=== PATIENT | female | born 1975 | race American Indian/Alaskan Native ===

== ENCOUNTER 2017-02-21 22:11 | Observation (INO) | payer OTHER ==
[2017-02-21 22:15] VITALS: BMI 21.4
--- NOTE | 2017-02-21 22:27 | ED PDOC ---
Arrival/HPI - General Chief Complaint: Headache Time Seen by Provider: 02/21/17 22:13 Historian: Patient, Family - History of Present Illness Narrative History of Present Illness (Text): 02/21/17 22:26 Hyun Walters is a 40 year old female, whose past medical history includes hypertension, TIA with residual right-sided weakness, depression, and anxiety, who presents to the Emergency Room brought in by EMS accompanied by relative complaining of headache. Relative states patient has been experiencing a left- sided headache and right-sided facial pain for 2 1/2 hours prior to arrival. Relative reports patient had Tramadol at home with no significant relief. Patient denies any fever, chills, chest pain, shortness of breath, nausea, vomiting, diarrhea, urinary symptoms, back pain, neck pain, dizziness, or any other complaints. Time/Duration: 1-3 hours (2 1/2 hours) Symptom Onset: Gradual Symptom Course: Unchanged Activities at Onset: Rest, Light Context: Home Past Medical History - Provider Review Nursing Documentation Reviewed: Yes - Infectious Disease Hx of Infectious Diseases: None - Tetanus Immunization Tetanus Immunization: Unknown - Cardiac Hx Cardiac Disorders: Yes Hx Hypertension: Yes - Pulmonary Hx Respiratory Disorders: No - Neurological Hx Neurological Disorder: No HX Cerebrovascular Accident: Yes (1 monthago) - HEENT Hx HEENT Disorder: No - Renal Hx Renal Disorder: No - Endocrine/Metabolic Hx Endocrine Disorders: No - Hematological/Oncological Hx Blood Disorders: No - Integumentary Hx Dermatological Disorder: No - Musculoskeletal/Rheumatological Hx Arthritis: Yes - Gastrointestinal Hx Gastrointestinal Disorders: No - Genitourinary/Gynecological Hx Genitourinary Disorders: No - Psychiatric Hx Psychophysiologic Disorder: Yes Hx Anxiety: Yes Hx Bipolar Disorder: Yes Hx Depression: Yes Hx Emotional Abuse: No Hx Physical Abuse: No Hx Substance Use: No - Surgical History Hx Section: Yes Hx Cholecystectomy: Yes - Anesthesia Hx Anesthesia: Yes Hx Anesthesia Reactions: No Hx Malignant Hyperthermia: No - Suicidal Assessment Feels Threatened In Home Enviroment: No Family/Social History - Physician Review Nursing Documentation Reviewed: Yes Family/Social History: No Known Family HX Smoking Status: Never Smoked Hx Alcohol Use: Yes (socially) Hx Substance Use: No Hx Substance Use Treatment: No Allergies/Home Meds Allergies/Adverse Reactions: Allergies No Known Allergies Allergy (Verified 02/23/17 16:30) Home Medications: Home Meds Medication Instructions Recorded Confirmed FLUoxetine [Prozac] 20 mg PO HS 10/30/15 02/21/17 Atorvastatin [Lipitor] 20 mg PO DAILY 02/21/17 02/21/17 Famotidine [Pepcid] 20 mg PO DAILY 02/21/17 02/21/17 Folic Acid [Folic Acid] 1 mg PO DAILY 02/21/17 02/21/17 Tamsulosin HCl [Flomax] 0.4 mg PO HS 02/21/17 02/21/17 Tramadol HCl [Ultram] 50 mg PO Q8H PRN 02/21/17 02/21/17 Review of Systems - Physician Review All systems were reviewed & negative as marked: Yes - Review of Systems Constitutional: Normal. absent: Fevers Eyes: Normal ENT: Normal Respiratory: Normal. absent: SOB, Cough Cardiovascular: Normal. absent: Chest Pain Gastrointestinal: Normal. absent: Abdominal Pain, Diarrhea, Nausea, Vomiting Genitourinary Female: Normal. absent: Dysuria, Frequency, Hematuria, Urine Output Changes Musculoskeletal: Normal. absent: Back Pain, Neck Pain Skin: Normal. absent: Rash Neurological: Headache. absent: Dizziness Endocrine: Normal Hemo/Lymphatic: Normal Psychiatric: Normal Physical Exam Vital Signs Reviewed: Yes Vital Signs Temp Pulse Resp BP Pulse Ox 02/22/17 03:35 98.1 F 75 20 126/72 98 02/22/17 02:11 98 F 75 20 126/83 98 02/21/17 22:23 97.6 F 104 H 19 145/84 95 Temperature: Afebrile Blood Pressure: Normal Pulse: Regular Respiratory Rate: Normal Appearance: Positive for: Well-Appearing, Non-Toxic, Comfortable Pain Distress: None Mental Status: Positive for: Alert and Oriented X 3 Finger Stick Blood Glucose: 141 - Systems Exam Head: Present: Atraumatic, Normocephalic Pupils: Present: PERRL Extroacular Muscles: Present: EOMI Conjunctiva: Present: Normal Ears: Present: Normal, NORMAL TM, Normal Canal. No: Erythema, TM Bulging, Fluid , TM Perf Mouth: Present: Moist Mucous Membranes Pharnyx: Present: Normal. No: ERYTHEMA, EXUDATE, TONSILS ENLARGED, Peritonsilar Swelling, Uvular Deviation, Muffled/Hoarse Voice, Str[place], Soft Palate/Uvular Edema Neck: Present: Normal Range of Motion Respiratory/Chest: Present: Clear to Auscultation, Good Air Exchange. No: Respiratory Distress, Accessory Muscle Use Cardiovascular: Present: Regular Rate and Rhythm, Normal S1, S2. No: Murmurs Abdomen: Present: Normal Bowel Sounds. No: Tenderness, Distention, Peritoneal Signs Back: Present: Normal Inspection Upper Extremity: Present: Normal Inspection. No: Cyanosis, Edema Lower Extremity: Present: Normal Inspection. No: Edema Neurological: Present: GCS=15, CN II-XII Intact, Speech Normal Skin: Present: Warm, Dry, Normal Color. No: Rashes Psychiatric: Present: Alert, Oriented x 3, Normal Insight, Normal Concentration Medical Decision Making ED Course and Treatment: 02/21/17 22:26 Impression: 41 year old female complaining of left-sided headache and right-sided facial pain. Differential Diagnosis include but are not limited to: Plan: -- CT Head w/o contrast -- EKG -- Labs, troponin, alcohol level -- Urinalysis -- Reglan -- Reassess and disposition Prior Visits: Notes and results from previous visits were reviewed. - Lab Interpretations Lab Results: 02/21/17 22:00 02/21/17 22:00 Lab Results 02/21/17 22:19: POC Glucose (mg/dL) 141 H 02/21/17 22:00: Alcohol, Quantitative < 10 02/21/17 22:00: PT 11.5, INR 1.06, APTT 28.4 02/21/17 22:00: Sodium 139, Potassium 3.2 L, Chloride 101, Carbon Dioxide 25, Anion Gap 16, BUN 9, Creatinine 0.7, Est GFR ( Amer) > 60, Est GFR (Non- Af Amer) > 60, Random Glucose 113 H, Calcium 9.1, Total Bilirubin 0.2, AST 50 H , ALT 63 H, Alkaline Phosphatase 131, Troponin I < 0.01, Total Protein 7.2, Albumin 4.2, Globulin 3.0, Albumin/Globulin Ratio 1.4 02/21/17 22:00: WBC 6.3 D, RBC 4.13, Hgb 9.2 L, Hct 30.7 L, MCV 74.3 L, MCH 22.3 L, MCHC 30.0 L, RDW 23.1 H, Plt Count 644 H, MPV 8.4, Gran % 54.5, Lymph % (Auto) 33.0, [place] % (Auto) 8.4 H, Eos % (Auto) 3.8, Baso % (Auto) 0.3, Gran # 3.42, Lymph # 2.1, [place] # 0.5, Eos # 0.2, Baso # 0.02 02/21/17 11:30: Urine Color Light yellow, Urine Appearance Clear, Urine pH 6.5, Ur Specific [place] 1.015, Urine Protein 30 H, Urine Glucose (UA) Negative, Urine Ketones Negative, Urine Blood Negative, Urine Nitrate Negative, Urine Bilirubin Negative, Urine Urobilinogen 1.0 H, Ur Leukocyte Esterase Negative, Urine RBC 0 - 2, Urine WBC 0 - 2, Ur Epithelial Cells 3 - 4, Amorphous Sediment Few, Urine Bacteria Mod I have reviewed the lab results: Yes - RAD Interpretation Narrative RAD Interpretations (Text): CT Head shows: Brain: 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 There is no evidence of intracranial hemorrhage. No evidence of acute territorial infarction. Ventricles: Unremarkable. No ventriculomegaly. Bones/joints: Unremarkable. No acute fracture. Soft tissues: Unremarkable. Sinuses: Unremarkable as visualized. No acute sinusitis. Mastoid air cells: Unremarkable as visualized. No mastoid effusion. IMPRESSION: 1. 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 2. No evidence for acute intracranial abnormality or displaced calvarial fracture. 3. Additional incidental and/or chronic findings as described. Radiology Orders: 02/21/17 22:26 HEAD W/O CONTRAST [CT] Stat [employer] Associate: Radiologist - EKG Interpretation Interpreted by ED Physician: Yes Type: 12 lead EKG - Medication Orders Current Medication Orders: Discontinued Medications Metoclopramide HCl (Reglan) 10 mg IVP ONCE ONE Stop: 02/21/17 22:29 Last Admin: 02/21/17 22:43 Dose: 10 mg Potassium Chloride (K-Dur 20 Meq Er Tab) 20 meq PO STAT STA Stop: 02/22/17 01:31 Last Admin: 02/22/17 01:52 Dose: 20 meq ED OBSERVATION Discharge: Yes Date of observation admission: 02/21/17 Time of observation admission: 22:30 - Observation admission statement Patient is being placed in observation because:: Migraine - Goals of Observation Goals of observation are:: observe for recurrence of headache, awaiting transport - Progress Note Progress Note: 02/22/17 22:30 Reviewed EKG, NSR at [address]pm[address] Non-specific ST/T wave changes. 02/22/17 00:30 Reviewed radiology, CT Head shows: 1. 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 2. No evidence for acute intracranial abnormality or displaced calvarial fracture. 3. Additional incidental and/or chronic findings as described. 02/22/17 01:30 Pt resting comfortably. Reviewed labs, potassium: 3.2. Potassium chloride ordered. - Scribe Statement The provider has reviewed the documentation as recorded by the Scribe Hali Gonsalves All medical record entries made by the Scribe were at my direction and personally dictated by me. I have reviewed the chart and agree that the record accurately reflects my personal performance of the history, physical exam, medical decision making, and the department course for this patient. I have also personally directed, reviewed, and agree with the discharge instructions and disposition. Disposition/Present on Arrival - Present on Arrival Any Indicators Present on Arrival: No History of DVT/PE: No History of Uncontrolled Diabetes: No Urinary Catheter: No History of Decub. Ulcer: No History Surgical Site Infection Following: None - Disposition Have Diagnosis and Disposition been Completed?: Yes Diagnosis: Vascular headache Disposition: HOME/ ROUTINE Disposition Time: 03:35 Condition: GOOD
[2017-02-21 22:50] LABS: ADD MANUAL DIFF? NO
[2017-02-21 23:06] LABS: BASO # 0.02 K/mm3 (0.0-2.0); BASO % 0.3 % (0.0-3.0); EOS # 0.2 (0.0-0.7); EOS % 3.8 % (1.5-5.0); GRAN # 3.42 (1.4-6.5); GRAN % 54.5 % (50.0-68.0); HEMATOCRIT 30.7 % (36.0-48.0); LYMPH # 2.1 (1.2-3.4); MEAN CELL VOLUME 74.3 fL (80.0-105.0); MEAN CORPUSCULAR HEMOGLOBIN 22.3 pg (25.0-35.0); MEAN PLATELET VOLUME 8.4 fl (7.0-11.0); MONO # 0.5 (0.1-0.6); MONO % 8.4 % (1.0-6.0); PLATELET COUNT 644 10^3/uL (120.0-450.0); RED CELL DISTRIBUTION WIDTH 23.1 % (11.5-14.5); WHITE BLOOD COUNT 6.3 10^3/ul (4.5-11.0)
[2017-02-21 23:07] LABS: ALB/GLOB RATIO 1.4 (1.1-1.8); ALKALINE PHOSPHATASE 131 U/L (38-133); ALT/SGPT 63 U/L (7-56); AST/SGOT 50 U/L (15-39); BILIRUBIN,TOTAL 0.2 mg/dL (0.2-1.3); BLOOD UREA NITROGEN 9 mg/dL (7-21); CALCIUM 9.1 mg/dL (8.4-10.5); CARBON DIOXIDE 25 mmol/L (21-33); CHLORIDE 101 mmol/L (95-110); GFR AFRICAN-AMERICAN > 60; GLUCOSE,RANDOM 113 mg/dL (70-110); POTASSIUM 3.2 mmol/L (3.6-5.0); SODIUM 139 mmol/L (132-148); TOTAL PROTEIN 7.2 g/dL (5.8-8.3)
[2017-02-21 23:27] LABS: TROPONIN I < 0.01 ng/mL
[2017-02-21 23:32] LABS: INR 1.06 (0.93-1.08); PARTIAL THROMBOPLASTIN TIME 28.4 Seconds (23.7-30.8)
[2017-02-22 00:25] LABS: PH,URINE 6.5 (4.7-8.0); URINE BILIRUBIN NEGATIVE (NEGATIVE); URINE BLOOD NEGATIVE (NEGATIVE); URINE GLUCOSE (UA) NEGATIVE (NEGATIVE); URINE KETONE NEGATIVE (NEGATIVE); URINE LEUKOCYTE ESTERASE NEGATIVE Leu/uL (NEGATIVE); URINE PROTEIN 30 mg/dL (<30 mg/dL)
--- NOTE | 2017-02-22 00:25 | CT ---
EXAM: CT Head Without Intravenous Contrast CLINICAL HISTORY: 41 years old, female; Pain; Headache; Headache not specified; Additional info: RON. HX stroke per patient. TECHNIQUE: Axial computed tomography images of the head/brain without intravenous contrast. This CT exam was performed using one or more of the following dose reduction techniques: automated exposure control, adjustment of the mA and/or kV according to patient size, and/or use of iterative reconstruction technique. 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 There is no evidence of intracranial hemorrhage. No evidence of acute territorial infarction. Ventricles: Unremarkable. No ventriculomegaly. Bones/joints: Unremarkable. No acute fracture. Soft tissues: Unremarkable. Sinuses: Unremarkable as visualized. No acute sinusitis. Mastoid air cells: Unremarkable as visualized. No mastoid effusion. IMPRESSION: 1. 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 2. No evidence for acute intracranial abnormality or displaced calvarial fracture. 3. Additional incidental and/or chronic findings as described.
[2017-02-22 00:26] LABS: URINE APPEARANCE CLEAR (CLEAR); URINE COLOR LIGHT YELLOW (YELLOW)
[2017-02-22 01:08] LABS: URINE RBC 0 - 2 /hpf (0-2)
[2017-02-22 01:09] LABS: URINE AMORPHOUS SEDIMENT FEW; URINE BACTERIA MOD (NEG); URINE WBC 0 - 2 /hpf (0-6)
[2017-02-22] MEDS ORDERED: Potassium Chloride 20 mEq ER Tab PO STA (01:30)
[2017-02-22 02:16] VITALS: PULSE 75; RESP 20; O2SAT 98
[2017-02-22 03:36] VITALS: BP 126/72; TEMP 98.1
--- NOTE | 2017-02-22 10:10 | CARD ---
APPROVED REPORT EKG Measurement Heart [id number] MD [id number] <Conclusion> Normal sinus rhythm Voltage criteria for left ventricular hypertrophy NSSTW changes Prolonged QTc No change
== END 2017-02-22 03:36 | disposition home or self-care (01) ==
LOC: ED 22:11 → EROBSV 23:30
PROVIDERS: ADMIT Emergency Medicine; ATTEND Emergency Medicine
DX: G44.1 Vascular headache, not elsewhere classified (principal); I10 Essential (primary) hypertension
CPT/HCPCS: 70450; 80053; 80320; 81001; 82948; 84484; 85025; 85610; 85730; 93005; 96374; 99285; J2765

== ENCOUNTER 2017-02-23 16:09 | Emergency (ER) | payer OTHER ==
[2017-02-23 16:11] VITALS: BMI 21.4
[2017-02-23 16:30] VITALS: BP 149/94; PULSE 103; RESP 20; TEMP 97.7; O2SAT 100
--- NOTE | 2017-02-23 17:00 | ED PDOC ---
Arrival/HPI - General Chief Complaint: Dental Pain Time Seen by Provider: 02/23/17 16:47 Historian: Patient, Family - History of Present Illness Narrative History of Present Illness (Text): 02/23/17 16:57 Hyun Walters is a 40 year old female, whose past medical history includes hypertension, TIA with residual right-sided weakness, depression, and anxiety, who presents to the Emergency Room with family member c/o right lower tooth ache x 2 days. Patient had been recently in this ED for RON. Patient denies fever, dysphagia, sore throat, sob, cp, facial swelling, rash, or abnormal gait. Time/Duration: Prior to Arrival Quality: Aching Context: Home Past Medical History - Provider Review Nursing Documentation Reviewed: Yes - Infectious Disease Hx of Infectious Diseases: None - Tetanus Immunization Tetanus Immunization: Unknown - Cardiac Hx Cardiac Disorders: Yes Hx Hypertension: Yes - Pulmonary Hx Respiratory Disorders: No - Neurological Hx Neurological Disorder: No HX Cerebrovascular Accident: Yes (1 monthago) - HEENT Hx HEENT Disorder: No - Renal Hx Renal Disorder: No - Endocrine/Metabolic Hx Endocrine Disorders: No - Hematological/Oncological Hx Blood Disorders: No - Integumentary Hx Dermatological Disorder: No - Musculoskeletal/Rheumatological Hx Arthritis: Yes - Gastrointestinal Hx Gastrointestinal Disorders: No - Genitourinary/Gynecological Hx Genitourinary Disorders: No - Psychiatric Hx Psychophysiologic Disorder: Yes Hx Anxiety: Yes Hx Bipolar Disorder: Yes Hx Depression: Yes Hx Emotional Abuse: No Hx Physical Abuse: No Hx Substance Use: No - Surgical History Hx Section: Yes Hx Cholecystectomy: Yes - Anesthesia Hx Anesthesia: Yes Hx Anesthesia Reactions: No Hx Malignant Hyperthermia: No - Suicidal Assessment Feels Threatened In Home Enviroment: No Family/Social History - Physician Review Nursing Documentation Reviewed: Yes Family/Social History: No Known Family HX Smoking Status: Never Smoked Hx Alcohol Use: Yes (socially) Hx Substance Use: No Hx Substance Use Treatment: No Allergies/Home Meds Allergies/Adverse Reactions: Allergies No Known Allergies Allergy (Verified 02/23/17 16:30) Home Medications: Home Meds Medication Instructions Recorded Confirmed FLUoxetine [Prozac] 20 mg PO HS 10/30/15 02/21/17 Atorvastatin [Lipitor] 20 mg PO DAILY 02/21/17 02/21/17 Famotidine [Pepcid] 20 mg PO DAILY 02/21/17 02/21/17 Folic Acid [Folic Acid] 1 mg PO DAILY 02/21/17 02/21/17 Tamsulosin HCl [Flomax] 0.4 mg PO HS 02/21/17 02/21/17 Tramadol HCl [Ultram] 50 mg PO Q8H PRN 02/21/17 02/21/17 Review of Systems - Review of Systems Constitutional: Normal. absent: Fatigue, Weight Change, Fevers, Night Sweats Eyes: Normal ENT: Other (dental pain). absent: Sore Throat, Rhinorrhea Respiratory: Normal Cardiovascular: Normal Gastrointestinal: Normal Genitourinary Female: Normal Musculoskeletal: Normal Skin: Normal Neurological: Normal Endocrine: Normal Hemo/Lymphatic: Normal Psychiatric: Normal Physical Exam Vital Signs Temp Pulse Resp BP Pulse Ox 02/23/17 16:25 97.7 F 103 H 20 149/94 H 100 Temperature: Afebrile Blood Pressure: Normal Pulse: Regular Respiratory Rate: Normal Appearance: Positive for: Well-Appearing, Non-Toxic, Comfortable Pain Distress: None Mental Status: Positive for: Alert and Oriented X 3 - Systems Exam Head: Present: Atraumatic, Normocephalic Pupils: Present: PERRL Extroacular Muscles: Present: EOMI Conjunctiva: Present: Normal Ears: Present: Normal, NORMAL TM, Normal Canal. No: Erythema, TM Bulging, Fluid Mouth: Present: Moist Mucous Membranes, Normal Lips, Normal Tounge, Other ((+) gum surrounding tooth # 30 is mild redness. No dental abscess. No facial swelling. No facial rash). No: Drooling, Trismus Pharnyx: Present: Normal. No: ERYTHEMA, EXUDATE, TONSILS ENLARGED Neck: Present: Normal Range of Motion Respiratory/Chest: Present: Clear to Auscultation, Good Air Exchange, Respiratory Distress, Accessory Muscle Use. No: Wheezes, Rales, Retracting Cardiovascular: Present: Regular Rate and Rhythm, Normal S1, S2. No: Murmurs Upper Extremity: Present: Normal Inspection, Normal ROM, NORMAL PULSES, Neurovascularly Intact, Capillary Refill < 2s Lower Extremity: Present: Normal Inspection, NORMAL PULSES, Normal ROM, Neurovascularly Intact, Capillary Refill < 2 s. No: Edema, CALF TENDERNESS Neurological: Present: GCS=15, CN II-XII Intact, Speech Normal, Motor Func Grossly Intact, Normal Sensory Function, Normal Cerebellar Funct, Gait Normal Skin: Present: Warm, Dry, Normal Color. No: Rashes Psychiatric: Present: Alert, Oriented x 3 Medical Decision Making ED Course and Treatment: 02/23/17 17:01 Re-evaluation. Patient feels better. Discussed results and plan with patient who expresses understanding. All questions answered and there is agreement with the plan to discharge home with instructions. Patient stable for discharge. Return if symptoms persist or worsen Patient stated she did not take her home Xanax, and she feels mild anxious at this time. She agrees to take one dose today. Re-evaluation Time: 17:02 Reassessment Condition: Re-examined, Improved - Medication Orders Current Medication Orders: Discontinued Medications Amoxicillin (Amoxil 500 Mg Cap) 500 mg PO STAT STA PRN Reason: Protocol Stop: 02/23/17 16:57 Last Admin: 02/23/17 17:13 Dose: 500 mg Ketorolac Tromethamine (Toradol) 15 mg IM STAT STA Stop: 02/23/17 16:56 Last Admin: 02/23/17 17:14 Dose: 15 mg Disposition/Present on Arrival - Present on Arrival Any Indicators Present on Arrival: No History of DVT/PE: No History of Uncontrolled Diabetes: No Urinary Catheter: No History of Decub. Ulcer: No History Surgical Site Infection Following: None - Disposition Have Diagnosis and Disposition been Completed?: Yes Diagnosis: Pain due to dental caries Disposition: HOME/ ROUTINE Disposition Time: 17:02 Patient Plan: Discharge Patient Problems: Current Active Problems Problem Status Onset Vascular headache Acute Pain due to dental caries Acute Condition: GOOD Discharge Instructions (ExitCare): Dental Caries (ED), Toothache (ED) Additional Instructions: Call private doctor for follow up visit in 1-2 days. Take medication as instructed. Return to emergency if symptoms worsen. Prescriptions: Amoxicillin [Amoxil 500 mg Cap] 500 mg PO TID #30 cap Chlorhexidine 0.12% [Peridex] 15 ml PO BID #1 bottle Naproxen 500 mg PO BID PRN #20 tab PRN Reason: Pain, Severe (8-10) Referrals: Dallin Narvaez JD, MD [Primary Care Provider] - Follow up with primary
== END 2017-02-23 17:40 | disposition home or self-care (01) ==
LOC: ED 16:09
DX: K02.9 Dental caries, unspecified (principal); K08.89 Other specified disorders of teeth and supporting structures
CPT/HCPCS: 96372; 99282; J1885

== ENCOUNTER 2017-04-10 07:08 | Inpatient (IN) | payer OTHER ==
--- NOTE | 2017-04-10 07:19 | ED PDOC ---
Arrival/HPI - General Time Seen by Provider: 04/10/17 07:14 Historian: EMS - History of Present Illness Narrative History of Present Illness (Text): 04/10/17 07:07 A 42 year old female, whose past medical history includes hypertension, CVA with residual right-sided weakness, depression, and anxiety, was brought in to the emergency department via EMS due to generalized weakness and altered mental status. Review of symptoms unavailable due to patient's altered mental status. PMD: Dallin Narvaez Time/Duration: Prior to Arrival Symptom Course: Unchanged Context: Home Past Medical History - Provider Review Nursing Documentation Reviewed: Yes - Infectious Disease Hx of Infectious Diseases: None - Tetanus Immunization Tetanus Immunization: Unknown - Cardiac Hx Cardiac Disorders: Yes Hx Hypertension: Yes - Pulmonary Hx Respiratory Disorders: No - Neurological Hx Neurological Disorder: No HX Cerebrovascular Accident: Yes (1 monthago) - HEENT Hx HEENT Disorder: No - Renal Hx Renal Disorder: No - Endocrine/Metabolic Hx Endocrine Disorders: No - Hematological/Oncological Hx Blood Disorders: No - Integumentary Hx Dermatological Disorder: No - Musculoskeletal/Rheumatological Hx Arthritis: Yes - Gastrointestinal Hx Gastrointestinal Disorders: No - Genitourinary/Gynecological Hx Genitourinary Disorders: No - Psychiatric Hx Psychophysiologic Disorder: Yes Hx Anxiety: Yes Hx Bipolar Disorder: Yes Hx Depression: Yes Hx Emotional Abuse: No Hx Physical Abuse: No Hx Substance Use: No - Surgical History Hx Section: Yes Hx Cholecystectomy: Yes - Anesthesia Hx Anesthesia: Yes Hx Anesthesia Reactions: No Hx Malignant Hyperthermia: No - Suicidal Assessment Feels Threatened In Home Enviroment: No Family/Social History - Physician Review Nursing Documentation Reviewed: Yes Family/Social History: No Known Family HX Smoking Status: Never Smoked Hx Alcohol Use: Yes (socially) Hx Substance Use: No Hx Substance Use Treatment: No Allergies/Home Meds Allergies/Adverse Reactions: Allergies No Known Allergies Allergy (Verified 04/10/17 07:23) Home Medications: Home Meds Medication Instructions Recorded Confirmed Atorvastatin [Lipitor] 20 mg PO DAILY 02/21/17 04/10/17 Famotidine [Pepcid] 20 mg PO DAILY 02/21/17 04/10/17 Folic Acid [Folic Acid] 1 mg PO DAILY 02/21/17 04/10/17 Tamsulosin HCl [Flomax] 0.4 mg PO HS 02/21/17 04/10/17 Tramadol HCl [Ultram] 50 mg PO Q8H PRN 02/21/17 04/10/17 Alprazolam [Alprazolam] 0.25 mg PO BID 04/10/17 04/10/17 Calcium Carbonate/Vitamin D3 500 cap PO BID 04/10/17 04/10/17 [Oysco 500-Vit D3 200 Tablet] Mirtazapine [Remeron] 7.5 mg PO DAILY 04/10/17 04/10/17 Quetiapine Fumarate [Seroquel] 200 mg PO HS 04/10/17 04/10/17 Review of Systems - Review of Systems Systems not reviewed;Unavailable: Altered Mental Status Physical Exam - Physical Exam Narrative Physical Exam (Text): - Physical exam Patient appears age appropriate. - Systems Exam Head: Present: Atraumatic, Normocephalic Pupils: Present: PERRL Extraocular Muscles: Present: EOMI Conjunctiva: Present: Normal Mouth: Present: Moist Mucous Membranes Neck: Present: Normal Range of Motion. No: MIDLINE TENDERNESS, Paraspinal Tenderness Respiratory/Chest: Present: Clear to Auscultation, Good Air Exchange. No: Respiratory Distress, Accessory Muscle Use, Tachypnic Cardiovascular: Present: Regular Rate and Rhythm, Normal S1, S2, Peripheral Pulses Present. No: Murmurs Abdomen: Present: Normal Bowel Sounds, No: Tenderness, Peritoneal Signs, Rebound, Guarding, Distention Back: Present: Normal Inspection. No: Midline Tenderness, Paraspinal Tenderness Upper Extremity: Present: Normal Inspection. No: Cyanosis, Edema Lower Extremity: Present: Normal Inspection. No: Edema Neurological: Present: Right sided weakness otherwise no focal neurological deficits. Skin: Present: Warm, Dry, Normal Color. No: Rashes Lymphatic: Present: OX3, NI, NC Psychiatric: Present: Alert to verbal and tactile stimuli. Vital Signs Reviewed: Yes Vital Signs Temp Pulse Resp BP Pulse Ox 04/10/17 08:43 97.5 F L 77 20 145/88 98 04/10/17 07:25 97.5 F L 80 16 153/83 H 98 Temperature: Afebrile Blood Pressure: Hypertensive Pulse: Regular Respiratory Rate: Normal Medical Decision Making ED Course and Treatment: 04/10/17 07:19 Impression: A 42 year old female brought in via EMS for altered mental status and right sided weakness. On exam, patient is alert to verbal and tactile stimuli, right sided weakness otherwise no other focal neurological deficits. Plan: -- Head CT w/o Contrast -- Chest X-ray -- EKG -- Labs -- Blood Culture -- Urinalysis -- Reassess and disposition Prior Visits: Notes and results from previous visits were reviewed. Patient last seen in ED on 02/23/17 for lower right sided toothache. Progress Notes: EKG shows NSR at [address]-segment elevations, normal intervals. Interpreted by me. Report Date : 04/10/2017 08:15:29 PROCEDURE: CT HEAD WITHOUT CONTRAST. Dictator : Courtney Baker MD IMPRESSION: Encephalomalacia is re-identified involving the left frontal lobe and left basal ganglia. Please note that MRI with diffusion imaging is more sensitive in the detection of acute ischemic event. 04/10/17 09:04 Chest X-ray read and interpreted by me, which shows no cardiomegaly, no pneumothorax, no effusions. 04/10/17 09:06: On re-evaluation, patient is more awake, asking for pain meds for her R. sided pain. Pt's sister bedside, states pt had a stroke in December and her R. sided weakness is old. 04/10/17 09:33 Dr. Brice elizabeth, awaiting callback 04/10/17 09:[address] Narvaez, accepted admission to his service with Dr. Larson on consult pt in no distress, appears more awake than when she came in the morning sister adds that pt took a pill given by mental health which she has not taken in a few months, cannot recall the name pt and family aware of and agree with plan pt is protecting her airway - Lab Interpretations Lab Results: 04/10/17 07:25 04/10/17 07:25 Lab Results 04/10/17 08:35: Urine Color Yellow, Urine Appearance Clear, Urine pH 6.0, Ur Specific Mack 1.025, Urine Protein Trace H, Urine Glucose (UA) Negative, Urine Ketones Negative, Urine Blood Negative, Urine Nitrate Negative, Urine Bilirubin Negative, Urine Urobilinogen 1.0 H, Ur Leukocyte Esterase Negative, Urine RBC Negative, Urine WBC 0 - 2, Ur Epithelial Cells 1 - 3, Urine Bacteria Few 04/10/17 08:27: POC Glucose (mg/dL) 72 04/10/17 07:25: Sodium 143, Potassium 3.7, Chloride 107, Carbon Dioxide 24, Anion Gap 16, BUN 16, Creatinine 0.8, Est GFR ( Amer) > 60, Est GFR (Non- Af Amer) > 60, Random Glucose 120 H, Calcium 9.1, Total Bilirubin 0.4, AST 35, ALT 32, Alkaline Phosphatase 99, Lactate Dehydrogenase 358, Total Creatine Kinase 95, Troponin I < 0.01, Total Protein 7.5, Albumin 4.2, Globulin 3.3, Albumin/Globulin Ratio 1.3 04/10/17 07:25: PT 11.2, INR 1.04, APTT 26.8 04/10/17 07:25: WBC 9.3 D, RBC 4.36, Hgb 9.5 L, Hct 31.6 L, MCV 72.5 L, MCH 21.8 L, MCHC 30.1 L, RDW 20.4 H, Plt Count 497 H, MPV 8.5, Gran % 58.5, Lymph % (Auto) 33.7, [place] % (Auto) 5.4, Eos % (Auto) 2.3, Baso % (Auto) 0.1, Gran # 5.45 , Lymph # 3.1, [place] # 0.5, Eos # 0.2, Baso # 0.01 I have reviewed the lab results: Yes - RAD Interpretation Radiology Orders: 04/10/17 07:43 HEAD W/O CONTRAST [CT] Stat 04/10/17 07:44 CHEST PORTABLE [RAD] Stat - Medication Orders Current Medication Orders: Discontinued Medications Aspirin (Aspirin Supp) 300 mg RC STAT STA Stop: 04/10/17 08:25 Last Admin: 04/10/17 08:43 Dose: 300 mg NIHSS Scale ([place]) Time Performed: 09:47 - How Severe is the Stoke Baseline Level of Consciousness: 0=Alert LOC to Questions: 0=Both comments correct LOC to commands: 0=Obeys both correctly Best Gaze: 0=Normal Visual: 0=No visual loss Facial: 0=Normal Motor Arm - Left: 0=No drift Motor Arm - Right: 0=No drift (decreased ROM at baseline) Motor Leg - Left: 0=No drift Motor Leg - Right: 0=No drift (decreased ROM at baseline) Limb Ataxia: 0=Absent Sensory: 0=Normal Best Language: 0=No aphasia Dysarthia: 0=Normal articulation Extinction & Inattention (Neglect): 0=Normal, no object Score: 0 Risk Level: No Stroke Risk rTPA Inclusion/Exclusion - Refusal of Treatment Patient Refused Treatment: No - Inclusion Criteria for Altepase Patient is 18 years or Older: Yes The Clinical Diagnosis of Ischemic Stroke That is Causing a Potentially Disabling Neurological Deficit: No Time of Onset is Well Established to be Less Than 270 Minute Before Treatment Would Begin: Yes Risk/Benefit Discussed With Patient/Family Member Present: No - Scribe Statement The provider has reviewed the documentation as recorded by the Scribe Ligia Leyva training under Taylor Doherty Provider Scribe Attestation: All medical record entries made by the Scribe were at my direction and personally dictated by me. I have reviewed the chart and agree that the record accurately reflects my personal performance of the history, physical exam, medical decision making, and the department course for this patient. I have also personally directed, reviewed, and agree with the discharge instructions and disposition. Disposition/Present on Arrival - Present on Arrival Any Indicators Present on Arrival: No History of DVT/PE: No History of Uncontrolled Diabetes: No Urinary Catheter: No History Surgical Site Infection Following: None - Disposition Have Diagnosis and Disposition been Completed?: Yes Diagnosis: Altered mental status Disposition: HOSPITALIZED Disposition Time: 09:46 Patient Plan: Observation Condition: STABLE Referrals: Dallin Narvaez JD, MD [Primary Care Provider] - Follow up with primary
[2017-04-10 07:21] VITALS: BMI 20.5
[2017-04-10 08:10] LABS: BASO # 0.01 K/mm3 (0.0-2.0); BASO % 0.1 % (0.0-3.0); EOS # 0.2 (0.0-0.7); EOS % 2.3 % (1.5-5.0); GRAN # 5.45 (1.4-6.5); GRAN % 58.5 % (50.0-68.0); HEMOGLOBIN 9.5 gm/dL (12.0-16.0); LYMPH # 3.1 (1.2-3.4); LYMPH % 33.7 % (22.0-35.0); MEAN CELL VOLUME 72.5 fL (80.0-105.0); MEAN CORPUSCULAR HEMOGLOBIN 21.8 pg (25.0-35.0); MEAN CORPUSCULAR HGB CONC 30.1 g/dl (31.0-37.0); MEAN PLATELET VOLUME 8.5 fl (7.0-11.0); MONO # 0.5 (0.1-0.6); MONO % 5.4 % (1.0-6.0); PLATELET COUNT 497 10^3/uL (120.0-450.0); RBC 4.36 10^6/uL (3.5-6.1); RED CELL DISTRIBUTION WIDTH 20.4 % (11.5-14.5); WHITE BLOOD COUNT 9.3 10^3/ul (4.5-11.0)
--- NOTE | 2017-04-10 08:16 | CT ---
PROCEDURE: CT HEAD WITHOUT CONTRAST. HISTORY: AMS COMPARISON: Noncontrast head CT performed 02/22/17 TECHNIQUE: Axial computed tomography images were obtained through the head/brain without intravenous contrast. Radiation dose: Total exam DLP = 689.99 MGy-cm. This CT exam was performed using one or more of the following dose reduction techniques: Automated exposure control, adjustment of the mA and/or kV according to patient size, and/or use of iterative reconstruction technique. FINDINGS: HEMORRHAGE: No intracranial hemorrhage. BRAIN: No mass effect or edema. Encephalomalacia is re-identified involving the left frontal lobe and left basal ganglia. Please note that MRI with diffusion imaging is more sensitive in the detection of acute ischemic event. VENTRICLES: No hydrocephalus. CALVARIUM: Unremarkable. PARANASAL SINUSES: Unremarkable as visualized. No significant inflammatory changes. MASTOID AIR CELLS: Unremarkable as visualized. No inflammatory changes. OTHER FINDINGS: None. IMPRESSION: Encephalomalacia is re-identified involving the left frontal lobe and left basal ganglia. Please note that MRI with diffusion imaging is more sensitive in the detection of acute ischemic event.
[2017-04-10 08:20] LABS: INR 1.04 (0.93-1.08); PARTIAL THROMBOPLASTIN TIME 26.8 Seconds (23.7-30.8); PROTHROMBIN TIME 11.2 Seconds (9.9-11.8)
[2017-04-10 08:33] LABS: ALB/GLOB RATIO 1.3 (1.1-1.8); ALBUMIN 4.2 g/dL (3.0-4.8); ALT/SGPT 32 U/L (7-56); AST/SGOT 35 U/L (15-39); BLOOD UREA NITROGEN 16 mg/dL (7-21); CALCIUM 9.1 mg/dL (8.4-10.5); GFR AFRICAN-AMERICAN > 60; GFR NON-AFRICAN AMERICAN > 60
[2017-04-10 08:49] LABS: TROPONIN I < 0.01 ng/mL
[2017-04-10 08:59] LABS: URINE BILIRUBIN NEGATIVE (NEGATIVE); URINE BLOOD NEGATIVE (NEGATIVE); URINE GLUCOSE (UA) NEGATIVE (NEGATIVE); URINE LEUKOCYTE ESTERASE NEGATIVE Leu/uL (NEGATIVE); URINE NITRATE NEGATIVE (NEGATIVE); URINE PROTEIN TRACE mg/dL (<30 mg/dL)
[2017-04-10 09:00] LABS: URINE APPEARANCE CLEAR (CLEAR); URINE COLOR YELLOW (YELLOW)
[2017-04-10 09:23] LABS: URINE BACTERIA FEW (NEG); URINE RBC NEGATIVE /hpf (0-2); URINE WBC 0 - 2 /hpf (0-6)
--- NOTE | 2017-04-10 10:04 | CP.PCM.CON ---
<Bianka Gordon - Last Filed: 04/10/17 11:22> History of Present Illness - History of Present Illness History of Present Illness: PGY-2 Neurology consult note for Dr Larson. Reason for consult: AMS Patient is a 42 y/o with pmh of htn, CVA ( December 2016) with residual right sided hemiparesis, depression and anxiety brought in by sister 2nd to [facility]. As per patient's sister states patient took 0.25 mg of Xanax last night around 9: 30 pm, likely also took tramadol (but sister is not sure) before going to bed. This AM patient wouldn't woke up, patient's sister was finally able to get patient to the shower, however patient was too sleepy and lethargic to take the shower. Patient's sister decided to call 911. Recently visited a dentist and was prescribed antibiotics. Patient also recently visited a behavioral psych, was prescribed seroquel, Xanax and one other medications she doesn't recall. Patient has not been taking the seroquel, but took Xanax last night. In the ED CT head revealed encephalomalacia. Patient c/o headache and was giving full dose aspirin. Patient's fingerstick was 72 in the ED. Unable to obtain detailed ROS due to mental status. Review of Systems - Review of Systems Systems not reviewed;Unavailable: Altered Mental Status Past Patient History - Infectious Disease Hx of Infectious Diseases: None - Tetanus Immunizations Tetanus Immunization: Unknown - Past Social History Smoking Status: Former Smoker Home Situation {Lives}: With Family - CARDIAC Hx Cardiac Disorders: Yes Hx Hypertension: Yes - PULMONARY Hx Respiratory Disorders: No - NEUROLOGICAL Hx Neurological Disorder: No HX Cerebrovascular Accident: Yes (1 monthago) - HEENT Hx HEENT Problems: No - RENAL Hx Chronic Kidney Disease: No - ENDOCRINE/METABOLIC Hx Endocrine Disorders: No - HEMATOLOGICAL/ONCOLOGICAL Hx Blood Disorders: No - INTEGUMENTARY Hx Dermatological Problems: No - MUSCULOSKELETAL/RHEUMATOLOGICAL Hx Arthritis: Yes - GASTROINTESTINAL Hx Gastrointestinal Disorders: No - GENITOURINARY/GYNECOLOGICAL Hx Genitourinary Disorders: No - PSYCHIATRIC Hx Psychophysiologic Disorder: Yes Hx Anxiety: Yes Hx Bipolar Disorder: Yes Hx Depression: Yes Hx Emotional Abuse: No Hx Physical Abuse: No Hx Substance Use: No - SURGICAL HISTORY Hx Section: Yes Hx Cholecystectomy: Yes - ANESTHESIA Hx Anesthesia: Yes Hx Anesthesia Reactions: No Hx Malignant Hyperthermia: No Meds Allergies/Adverse Reactions: Allergies Allergy/AdvReac Type Severity Reaction Status Date / Time No Known Allergies Allergy Verified 04/10/17 07:23 Physical Exam - Constitutional Appears: No Acute Distress, Older Than Stated Age, Confused, Cachectic, Chronically Ill - Head Exam Head Exam: ATRAUMATIC, NORMAL INSPECTION, NORMOCEPHALIC - Eye Exam Pupil Exam: Fixed, Miosis - ENT Exam ENT Exam: Mucous Membranes Dry - Neck Exam Neck exam: Positive for: Normal Inspection. Negative for: Meningismus - Respiratory Exam Respiratory Exam: Clear to Auscultation Bilateral, NORMAL BREATHING PATTERN. absent: Rales, Rhonchi, Wheezes, Respiratory Distress, Stridor - Cardiovascular Exam Cardiovascular Exam: REGULAR RHYTHM, +S1, +S2 - GI/Abdominal Exam GI & Abdominal Exam: Normal Bowel Sounds, Soft. absent: Distended, Tenderness - Extremities Exam Extremities exam: Positive for: normal inspection. Negative for: pedal edema - Neurological Exam Additional comments: Patient is not oriented to time, place and person, appears very lethargic, moans with stimulus. Not opening her eyes spontaneously, No facial asymmetry noted Pupils fixed and pinpoint reactive to light, but sluggish. Following few commands Right upper extremities contracted, moans with passive ROM, left Upper extremities 4/5 motor strengths Able to move b/l lower extremities grossly, + rigidity in the right lower extremities Left lower extremities 4/5 in motor strength. Positive babinski on the right. Reflexes are brisk throughout. Unable to examine, gait and cerebella functions. - Psychiatric Exam Additional comments: Unable to assess. - Skin Skin Exam: Normal Color Results - Vital Signs Recent Vital Signs: Last Vital Signs Temp 97.5 F L 04/10/17 08:43 Pulse 78 04/10/17 09:54 Resp 20 04/10/17 09:54 BP 124/75 04/10/17 09:54 Pulse Ox 98 04/10/17 09:54 - Labs Result Diagrams: 04/10/17 07:25 04/10/17 07:25 Assessment & Plan - Assessment and Plan (Free Text) Assessment: Patient is a 42 y/o with pmh of htn, CVA ( December 2016) with residual right sided hemiparesis, depression and anxiety brought in by sister 2nd to [facility]. Neurology is consulted for AMS. CT head revealed Encephalomalacia is re- identified involving the left frontal lobe and left basal ganglia. Hypoglycemia noted in the ED, On exam patient is very lethargic with pinpoint pupils concerning for drug overdose versus new CVA. Plan: - Will give stat dose narcan - will obtain drug tox - MRI to evaluate for new CVA - Consider ICU eval for mental status. - s/p full dose aspirin in the ED. - Avoid hypoglycemia episodes. - Thank you for consulting Dr Larson. Patient seen, examined, and discussed with Dr Larson. - Date & Time Date: 04/10/17 Time: 11:15 <Aj Larson - Last Filed: 04/10/17 14:15> Results - Vital Signs Recent Vital Signs: Last Vital Signs Temp 97.8 F 04/10/17 11:19 Pulse 78 04/10/17 11:19 Resp 20 04/10/17 11:19 BP 124/75 04/10/17 11:19 Pulse Ox 98 04/10/17 09:54 - Labs Result Diagrams: 04/10/17 07:25 04/10/17 07:25 Labs: Laboratory Results - last 24 hr 04/10/17 10:11 Alcohol, Quantitative < 10 Attending/Attestation - Attestation I have personally seen and examined this patient.: Yes I have fully participated in the care of the patient.: Yes I have reviewed all pertinent clinical information: Yes
[2017-04-10] MEDS ORDERED: Naloxone 0.4 mg/ml Inj (Adult) IVP ONE (10:56)
--- NOTE | 2017-04-10 11:16 | CP.PCM.HP ---
History of Present Illness - History of Present Illness History of Present Illness: 42 yo female h/o HTN with CVA, presents with 1 day increasing lethargy. Pt unable to give any hx, sister reports has been having dental problems, took xanax previous evening, no fever/chills, no n/v, no SOB Present on Admission - Present on Admission Any Indicators Present on Admission: No Past Patient History - Infectious Disease Hx of Infectious Diseases: None - Tetanus Immunizations Tetanus Immunization: Unknown - Past Social History Smoking Status: Never Smoked - CARDIAC Hx Cardiac Disorders: Yes Hx Hypertension: Yes - PULMONARY Hx Respiratory Disorders: No - NEUROLOGICAL Hx Neurological Disorder: No HX Cerebrovascular Accident: Yes (1 monthago) - HEENT Hx HEENT Problems: No - RENAL Hx Chronic Kidney Disease: No - ENDOCRINE/METABOLIC Hx Endocrine Disorders: No - HEMATOLOGICAL/ONCOLOGICAL Hx Blood Disorders: No - INTEGUMENTARY Hx Dermatological Problems: No - MUSCULOSKELETAL/RHEUMATOLOGICAL Hx Arthritis: Yes - GASTROINTESTINAL Hx Gastrointestinal Disorders: No - GENITOURINARY/GYNECOLOGICAL Hx Genitourinary Disorders: No - PSYCHIATRIC Hx Psychophysiologic Disorder: Yes Hx Anxiety: Yes Hx Bipolar Disorder: Yes Hx Depression: Yes Hx Emotional Abuse: No Hx Physical Abuse: No Hx Substance Use: No - SURGICAL HISTORY Hx Section: Yes Hx Cholecystectomy: Yes - ANESTHESIA Hx Anesthesia: Yes Hx Anesthesia Reactions: No Hx Malignant Hyperthermia: No Meds Allergies/Adverse Reactions: Allergies Allergy/AdvReac Type Severity Reaction Status Date / Time No Known Allergies Allergy Verified 04/10/17 07:23 Physical Exam - Constitutional Appears: Chronically Ill - Head Exam Head Exam: ATRAUMATIC, NORMAL INSPECTION, NORMOCEPHALIC - Neck Exam Neck exam: Positive for: Full Rom, Normal Inspection - Respiratory Exam Respiratory Exam: Clear to Auscultation Bilateral, NORMAL BREATHING PATTERN - Cardiovascular Exam Cardiovascular Exam: REGULAR RHYTHM - GI/Abdominal Exam GI & Abdominal Exam: Hypoactive Bowel Sounds - Extremities Exam Extremities exam: Positive for: normal inspection - Neurological Exam Neurological exam: Altered - Skin Skin Exam: Dry, Warm Results - Vital Signs Recent Vital Signs: Last Vital Signs Temp 97.5 F L 04/10/17 08:43 Pulse 78 04/10/17 09:54 Resp 20 04/10/17 09:54 BP 124/75 04/10/17 09:54 Pulse Ox 98 04/10/17 09:54 - Labs Result Diagrams: 04/10/17 07:25 04/10/17 07:25 Assessment & Plan - Assessment and Plan (Free Text) Assessment: altered menta status r/o recurrent CVA, HTN, CVA, hemiparesis, expressive aphasia - Date & Time Date: 04/10/17 Time: 11:00
--- NOTE | 2017-04-10 11:39 | RAD ---
HISTORY: AMS COMPARISON: Comparison chest dated in 10/26/2011 FINDINGS: LUNGS: No active pulmonary disease. PLEURA: No significant pleural effusion identified, no pneumothorax apparent. CARDIOVASCULAR: Normal. OSSEOUS STRUCTURES: No significant abnormalities. VISUALIZED UPPER ABDOMEN: Normal. OTHER FINDINGS: None. IMPRESSION: No active disease.
[2017-04-10] MEDS ORDERED: Gadodiamide 287 MG/ML VIAL (15ML) IV ONE (12:03)
--- NOTE | 2017-04-10 12:06 | CARD ---
APPROVED REPORT EKG Measurement Heart [id number] <Conclusion> Normal sinus rhythm Possible Left atrial enlargement Left ventricular hypertrophy Abnormal ECG
--- NOTE | 2017-04-10 12:37 | MRI ---
PROCEDURE: MRI of the brain dated 04/02/2017 HISTORY: Rule out new CVA. COMPARISON: Comparison made with prior CT scan brain 04/10/2017. TECHNIQUE: Multiplanar, multisequence MR images of the brain were obtained with and without intravenous contrast enhancement. Approximately 15 of Omniscan contrast material injected for this procedure. Study is somewhat limited by motion artifact FINDINGS: HEMORRHAGE: No acute parenchymal, subarachnoid or extra-axial hemorrhage. Questionable of small area of hemosiderin deposition within old infarct involving the left basal ganglia extending superiorly into the left dillard radiata and centrum semiovale and to a lesser degree left frontoparietal cortical/subcortical white matter. . DWI: No evidence of an acute or early subacute infarction seen on diffusion imaging. . BRAIN PARENCHYMA: Re- demonstrated to better advantage is a chronic infarct changes left basal ganglia extending into the left basal ganglia extending superiorly into the left dillard radiata, centrum semiovale and left frontoparietal subcortical as/cortical white matter. . There is mild gliosis seen extending inferiorly into the left cerebral peduncle. Associated ex vacuo dilatation of the left lateral ventricle particularly the left frontal horn due to the aforementioned infarct changes. ENHANCEMENT: No definitive abnormal enhancement. VENTRICLES: No obstructive hydrocephalus not withstanding ex vacuo dilatation left lateral ventricle. CRANIUM: No acute calvarial abnormality seen. ORBITS: Orbits and contents unremarkable. . 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 IMPRESSION: Limited motion degraded study. No acute intracranial hemorrhage or infarct. Chronic infarct changes left basal ganglia extending into the left basal ganglia extending superiorly into the left dillard radiata, centrum semiovale and left frontoparietal subcortical as/cortical white matter. . . Mild gliosis seen extending inferiorly into the left cerebral peduncle Suspect chronic incomplete occlusion left internal carotid artery followup MRA could be performed further evaluation. Charan Mild generalized volume loss with more localized ex vacuo dilatation of the left lateral ventricle particularly the left frontal horn
[2017-04-10] MEDS ORDERED: Multivitamin (MVI) 10 ML, Thiamine 100 MG, Folic Acid 1 MG in Sodium Chloride 0.9% 1,00... IV ONE (17:31)
[2017-04-10] MEDS: Thiamine 100 mg/ml Inj IM SCH (18:25)
[2017-04-11] MEDS: Thiamine 100 mg/ml Inj IM SCH (09:45)
--- NOTE | 2017-04-11 10:10 | CP.PCM.PN ---
Subjective - Date & Time of Evaluation Date of Evaluation: 04/11/17 Time of Evaluation: 10:00 - Subjective Subjective: awake and responsive today, MRI Brain neg for acute bleed/infarct Objective - Vital Signs/Intake and Output Vital Signs (last 24 hours): Temp Pulse Resp BP Pulse Ox 97.9 F 75 20 150/92 H 97 04/11/17 08:01 04/11/17 08:01 04/11/17 08:01 04/11/17 08:01 04/11/17 08:01 Intake and Output: 04/11/17 04/11/17 06:59 18:59 Intake Total 120 Output Total 500 Balance -380 - Medications Medications: Current Medications Acetaminophen (Tylenol 325mg Tab) 650 mg PO Q4H PRN PRN Reason: Pain, moderate (4-7) Last Admin: 04/10/17 23:18 Dose: 650 mg Losartan Potassium (Cozaar) 25 mg PO DAILY TIA Thiamine HCl (Vitamin B1 Inj) 100 mg IM DAILY TIA Last Admin: 04/11/17 09:45 Dose: 100 mg - Labs Labs: PT 11.2 Seconds (9.9-11.8) 04/10/17 07:25 INR 1.04 (0.93-1.08) 04/10/17 07:25 APTT 26.8 Seconds (23.7-30.8) 04/10/17 07:25 - Respiratory Exam Respiratory Exam: Clear to Ausculation Bilateral, NORMAL BREATHING PATTERN - Cardiovascular Exam Cardiovascular Exam: REGULAR RHYTHM - GI/Abdominal Exam GI & Abdominal Exam: Soft, Normal Bowel Sounds - Neurological Exam Neurological Exam: Alert, Awake - Skin Skin Exam: Dry, Warm Assessment and Plan (1) Altered mental status Status: Resolved (2) Hypertension Status: Chronic (3) Cerebrovascular accident (CVA) Status: Chronic - Assessment and Plan (Free Text) Plan: add Losartan 25mg qd for elevated bp, SW for dc planning
--- NOTE | 2017-04-11 13:53 | CON ---
NEUROLOGY FOLLOWUP DATE: 04/11/2017 CHIEF COMPLAINT: Followup for altered mental status. SUBJECTIVE: The patient is seen and examined at bedside. She was sitting up the chair, was much more alert and awake. 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 Otherwise no acute events overnight, is doing much well, following all commands, and speaking clearly. 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 FAMILY HISTORY: Noncontributory. SOCIAL HISTORY: No illicit drug use, smoking or ETOH abuse. ALLERGIES: No know drug allergies. MEDICATIONS: Reviewed by nurse reconciliation sheet. REVIEW OF SYSTEMS: A 14-point review of systems negative except per HPI. PHYSICAL EXAMINATION GENERAL: The patient is sitting up in bed, in no acute distress. VITAL SIGNS: Temperature of 97.9, pulse rate of 75, blood pressure of 150/92, respiratory rate of 20, and oxygen saturation was 97% via room air. HEENT: Atraumatic, normocephalic. PERRLA. Extraocular muscles are intact. NECK: Supple. No JVD. No adenopathy noted. LUNGS: Clear to auscultation. No adventitious sounds. HEART: S1 and S2. Normal rate and rhythm. No murmur, rubs or gallops. ABDOMEN: Soft, nontender, nondistended. Bowel sounds are present. EXTREMITIES: No clubbing. No cyanosis. Peripheral pulses 2+ bilaterally. NEUROLOGIC: The patient is alert, oriented to person, place, month, and year. Recall is 09/16. process. Cranial nerves II through XII intact. Motor exam has right side weakness with right upper extremity mildly contracted. Right sided 4 plus to 5 minus/5. Left side intact. Toes equivocal. Sensory exam: Light touch, proprioception, vibration intact. DTRs are 2+ throughout, 1 at the ankles. Coordination, [id number] intact, but difficult with the right due to residual right-sided spastic hemiparesis. LABORATORY DATA: Sodium is 143, potassium 3.7, chloride of 107, carbon di-oxide is 24, BUN is 16, creatinine 0.8, random glucose 120. ASSESSMENT AND PLAN: This is a 42-year-old woman with past medical history of hypertension, history of cerebrovascular accident with a left middle cerebral artery territory residual, right sided spastic hemiparesis, depression, anxiety, was brought in for altered mental status. She had an MRI of the brain which just showed encephalomalacia in the left anterior territory. She is known to be slightly hypoglycemic in the ER when she came in and took lot of medications such as Tramadol, Seroquel, and Remeron all at once with Xanax. Currently she is sitting up in the chair doing well, communicating, and had received IV thiamine and IV banana bag which had improved her mental status. Currently, her altered mental status secondary to hypoglycemia as well superimposed underlying polypharmacy. At this time, I recommend: 1. Monitor electrolytes and correct accordingly. 2. Continue with aspirin 81 mg and Lipitor 20 mg for stroke prevention. 3. Thiamine 100 mg IM daily injection to reactivate the brain. 4. Monitor blood sugars. Keep between 140 and 180 and avoid hypoglycemic events and continue to have current medical management and physical therapy. She is clinically stable from neurological standpoint. Aj Larson MD
[2017-04-11] MEDS: Naproxen 550 mg Tab PO PRN ×2 (14:10→18:34)
[2017-04-12] MEDS: Thiamine 100 mg/ml Inj IM SCH (09:42)
--- NOTE | 2017-04-12 11:09 | CP.PCM.PN ---
Subjective - Date & Time of Evaluation Date of Evaluation: 04/12/17 Time of Evaluation: 11:00 - Subjective Subjective: NAD Objective - Vital Signs/Intake and Output Vital Signs (last 24 hours): Temp Pulse Resp BP Pulse Ox 98.6 F 75 18 157/89 H 100 04/12/17 07:44 04/12/17 09:40 04/12/17 07:44 04/12/17 09:40 04/12/17 07:44 Intake and Output: 04/12/17 04/12/17 06:59 18:59 Intake Total 360 Output Total 400 Balance -40 - Medications Medications: Current Medications Acetaminophen (Tylenol 325mg Tab) 650 mg PO Q4H PRN PRN Reason: Pain, moderate (4-7) Last Admin: 04/12/17 05:20 Dose: 650 mg Carvedilol (Coreg) 3.125 mg PO BID [facility] Losartan Potassium (Cozaar) 25 mg PO DAILY [facility] Last Admin: 04/12/17 09:40 Dose: 25 mg Naproxen (Anaprox Ds) 550 mg PO BID PRN PRN Reason: Pain, moderate (4-7) Last Admin: 04/11/17 18:34 Dose: 550 mg Thiamine HCl (Vitamin B1 Inj) 100 mg IM DAILY [facility] Last Admin: 04/12/17 09:42 Dose: 100 mg - Labs Labs: PT 11.2 Seconds (9.9-11.8) 04/10/17 07:25 INR 1.04 (0.93-1.08) 04/10/17 07:25 APTT 26.8 Seconds (23.7-30.8) 04/10/17 07:25 - Respiratory Exam Respiratory Exam: Clear to Ausculation Bilateral, NORMAL BREATHING PATTERN - Cardiovascular Exam Cardiovascular Exam: REGULAR RHYTHM - GI/Abdominal Exam GI & Abdominal Exam: Soft, Normal Bowel Sounds - Extremities Exam Extremities Exam: Normal Inspection - Neurological Exam Neurological Exam: Alert, Awake - Skin Skin Exam: Dry, Warm Assessment and Plan (1) Altered mental status Status: Resolved (2) Hypertension Status: Chronic (3) Cerebrovascular accident (CVA) Status: Chronic - Assessment and Plan (Free Text) Plan: positive blood culture most likely contaminant, start coreg 3,125 bid for elevated bp, chack labs in am, for dc planning
[2017-04-12] MEDS: Naproxen 550 mg Tab PO PRN ×2 (14:05→20:15)
[2017-04-13 07:42] LABS: BASO # 0.02 K/mm3 (0.0-2.0); BASO % 0.3 % (0.0-3.0); EOS # 0.3 (0.0-0.7); EOS % 5.1 % (1.5-5.0); GRAN % 49.2 % (50.0-68.0); LYMPH # 2.4 (1.2-3.4); LYMPH % 38.7 % (22.0-35.0); MEAN CELL VOLUME 71.4 fL (80.0-105.0); MEAN CORPUSCULAR HEMOGLOBIN 21.6 pg (25.0-35.0); MEAN CORPUSCULAR HGB CONC 30.2 g/dl (31.0-37.0); MEAN PLATELET VOLUME 8.4 fl (7.0-11.0); MONO # 0.4 (0.1-0.6); MONO % 6.7 % (1.0-6.0); PLATELET COUNT 517 10^3/uL (120.0-450.0); RBC 3.71 10^6/uL (3.5-6.1); RED CELL DISTRIBUTION WIDTH 19.9 % (11.5-14.5); WHITE BLOOD COUNT 6.1 10^3/ul (4.5-11.0)
[2017-04-13 07:54] LABS: ALB/GLOB RATIO 1.2 (1.1-1.8); ALBUMIN 3.5 g/dL (3.0-4.8); ALT/SGPT 20 U/L (7-56); AST/SGOT 33 U/L (15-39); BLOOD UREA NITROGEN 17 mg/dL (7-21); CALCIUM 8.8 mg/dL (8.4-10.5); GFR AFRICAN-AMERICAN > 60; GFR NON-AFRICAN AMERICAN > 60
[2017-04-13] MEDS: Naproxen 550 mg Tab PO PRN (08:23)
--- NOTE | 2017-04-13 09:24 | CP.PCM.PN ---
Subjective - Date & Time of Evaluation Date of Evaluation: 04/13/17 Time of Evaluation: 09:00 - Subjective Subjective: NAD, no abd pain, no melena, no BRBPR, no N/V Objective - Vital Signs/Intake and Output Vital Signs (last 24 hours): Temp Pulse Resp BP Pulse Ox 98.3 F 79 20 136/76 100 04/13/17 07:38 04/13/17 07:38 04/13/17 07:38 04/13/17 07:38 04/13/17 07:38 Intake and Output: 04/13/17 04/13/17 06:59 18:59 Intake Total 480 480 Output Total 150 Balance 330 480 - Medications Medications: Current Medications Acetaminophen (Tylenol 325mg Tab) 650 mg PO Q4H PRN PRN Reason: Pain, moderate (4-7) Last Admin: 04/13/17 00:32 Dose: 650 mg Carvedilol (Coreg) 3.125 mg PO BID [facility] Last Admin: 04/12/17 17:27 Dose: 3.125 mg Losartan Potassium (Cozaar) 25 mg PO DAILY [facility] Last Admin: 04/12/17 09:40 Dose: 25 mg Pantoprazole Sodium (Protonix Ec Tab) 40 mg PO 0600 [facility] Thiamine HCl (Vitamin B1 Inj) 100 mg IM DAILY [facility] Last Admin: 04/12/17 09:42 Dose: 100 mg - Labs Labs: 04/13/17 07:00 04/13/17 07:00 PT 11.2 Seconds (9.9-11.8) 04/10/17 07:25 INR 1.04 (0.93-1.08) 04/10/17 07:25 APTT 26.8 Seconds (23.7-30.8) 04/10/17 07:25 - Respiratory Exam Respiratory Exam: Clear to Ausculation Bilateral, NORMAL BREATHING PATTERN - Cardiovascular Exam Cardiovascular Exam: REGULAR RHYTHM - GI/Abdominal Exam GI & Abdominal Exam: Soft, Normal Bowel Sounds - Extremities Exam Extremities Exam: Normal Inspection - Neurological Exam Neurological Exam: Alert, Awake - Skin Skin Exam: Dry, Warm Assessment and Plan (1) Altered mental status Status: Resolved (2) Hypertension Status: Chronic (3) Cerebrovascular accident (CVA) Status: Chronic (4) Anemia Status: Acute - Assessment and Plan (Free Text) Plan: DC NSAIDs, empiric PPI, check FOB, monitor Hb/Hct
[2017-04-13] MEDS: Thiamine 100 mg/ml Inj IM SCH (09:33)
[2017-04-13 10:05] LABS: % IRON SATURATION 4 % (20-55); IRON 15 ug/dL (45-180); TOTAL IRON BINDING CAPACITY 361 ug/dL (265-497)
[2017-04-14] MEDS: Pantoprazole 40 mg EC Tab PO SCH (05:14)
[2017-04-14 07:09] LABS: BASO # 0.02 K/mm3 (0.0-2.0); BASO % 0.3 % (0.0-3.0); EOS # 0.4 (0.0-0.7); EOS % 6.4 % (1.5-5.0); GRAN # 2.69 (1.4-6.5); GRAN % 42.7 % (50.0-68.0); LYMPH # 2.7 (1.2-3.4); LYMPH % 42.8 % (22.0-35.0); MEAN CELL VOLUME 71.7 fL (80.0-105.0); MEAN CORPUSCULAR HEMOGLOBIN 21.3 pg (25.0-35.0); MEAN CORPUSCULAR HGB CONC 29.7 g/dl (31.0-37.0); MEAN PLATELET VOLUME 8.2 fl (7.0-11.0); MONO # 0.5 (0.1-0.6); MONO % 7.8 % (1.0-6.0); PLATELET COUNT 503 10^3/uL (120.0-450.0); RBC 3.75 10^6/uL (3.5-6.1); WHITE BLOOD COUNT 6.3 10^3/ul (4.5-11.0)
[2017-04-14 08:24] LABS: ALB/GLOB RATIO 1.2 (1.1-1.8); ALBUMIN 3.5 g/dL (3.0-4.8); ALT/SGPT 23 U/L (7-56); AST/SGOT 33 U/L (15-39); BLOOD UREA NITROGEN 15 mg/dL (7-21); CALCIUM 8.8 mg/dL (8.4-10.5); GFR AFRICAN-AMERICAN > 60; GFR NON-AFRICAN AMERICAN > 60
--- NOTE | 2017-04-14 08:59 | CP.PCM.PN ---
Subjective - Date & Time of Evaluation Date of Evaluation: 04/14/17 Time of Evaluation: 08:30 - Subjective Subjective: NAD Objective - Vital Signs/Intake and Output Vital Signs (last 24 hours): Temp Pulse Resp BP Pulse Ox 97.5 F L 65 20 139/65 100 04/14/17 07:59 04/14/17 07:59 04/14/17 07:59 04/14/17 07:59 04/14/17 07:59 Intake and Output: 04/14/17 04/14/17 06:59 18:59 Intake Total 600 Output Total 500 Balance 100 - Medications Medications: Current Medications Acetaminophen (Tylenol 325mg Tab) 650 mg PO Q4H PRN PRN Reason: Pain, moderate (4-7) Last Admin: 04/14/17 04:20 Dose: 650 mg Carvedilol (Coreg) 3.125 mg PO BID [facility] Last Admin: 04/13/17 17:06 Dose: 3.125 mg Losartan Potassium (Cozaar) 25 mg PO DAILY [facility] Last Admin: 04/13/17 09:33 Dose: 25 mg Pantoprazole Sodium (Protonix Ec Tab) 40 mg PO 0600 [facility] Last Admin: 04/14/17 05:14 Dose: 40 mg Thiamine HCl (Vitamin B1 Inj) 100 mg IM DAILY [facility] Last Admin: 04/13/17 09:33 Dose: 100 mg - Labs Labs: 04/14/17 06:40 04/14/17 06:40 PT 11.2 Seconds (9.9-11.8) 04/10/17 07:25 INR 1.04 (0.93-1.08) 04/10/17 07:25 APTT 26.8 Seconds (23.7-30.8) 04/10/17 07:25 - Respiratory Exam Respiratory Exam: Clear to Ausculation Bilateral, NORMAL BREATHING PATTERN - Cardiovascular Exam Cardiovascular Exam: REGULAR RHYTHM - GI/Abdominal Exam GI & Abdominal Exam: Soft, Normal Bowel Sounds - Extremities Exam Extremities Exam: Normal Inspection - Neurological Exam Neurological Exam: Alert, Awake - Skin Skin Exam: Dry, Warm Assessment and Plan (1) Altered mental status Status: Resolved (2) Hypertension Status: Chronic (3) Cerebrovascular accident (CVA) Status: Chronic (4) Anemia Status: Acute - Assessment and Plan (Free Text) Plan: transfuse 2u prbc's, GI consult, FOB pending
[2017-04-14] MEDS: Thiamine 100 mg/ml Inj IM SCH (10:02)
--- NOTE | 2017-04-14 13:40 | CON ---
GI FOLLOWUP NOTE SUBJECTIVE: Seen and examined at the bedside earlier today. The chart was reviewed. Request for consult for iron deficiency. HISTORY OF PRESENT ILLNESS: This is a 42-year-old female with a past medical history of CVA with right-sided weakness and hypertension who was brought to the emergency room with altered mental status and generalized weakness. The patient had a MRI of the brain on admission and chronic occlusion of the left internal carotid artery. The patient is currently on the phone speaking to her sister, Nicol, who is also her power of ip technology transactions attorney. She is currently on speaker phone. The patient does have history of anemia in the past. Denies any symptoms of melena or any bleeding per rectum. The patient did have an endoscopy when she was in [facility] for CVA, and the patient had a PEG feeding tube inserted. The patient's sister states that the PEG tube was removed about a month ago at Dr. Narvaez's office. The patient denies any nausea, vomiting or abdominal pain. No complaints of weight loss, loss of appetite or any difficulty in swallowing. The patient does report heavy menstrual period. Denies any history of any fibroids. Denies any history of NSAID use, although takes daily aspirin. The patient denies ever having colonoscopy. PAST MEDICAL HISTORY: As stated above, hypertension, CVA with right-sided weakness, anxiety, depression. SURGICAL HISTORY: She had a cholecystectomy and and feeding tube which was moved. SOCIAL HISTORY: The patient was former smoker. Denies any EtOH or substance abuse. ALLERGIES: No known drug allergies. MEDICATIONS: Reviewed. As per MAR. REVIEW OF SYSTEMS: Systems reviewed with positive findings. See HPI. PHYSICAL EXAMINATION VITAL SIGNS: Temperature is 97.5, blood pressure is 139/65, pulse 65, respirations 20 and 100 on room air. HEENT: Sclerae is anicteric. CARDIAC: S1 and S2. LUNGS: Clear. ABDOMEN: Bowel sounds soft, not distended, nontender on palpation. No rebound or guarding. Old scar noted from PEG tube and cholecystectomy. EXTREMITIES: Positive pedal pulses. No edema. NEURO: Speech is slightly garbled and has weakness on the right lower extremity. Awake, alert and oriented. LABORATORY DATA: WBC 6.3, H and H is 8.0 and 26.9, platelet is 503. Last PT is from , PT is 11.2, INR is 1.04, PTT 26.8. Sodium 140, potassium 3.9, BUN is 15, creatinine is 0.5. LFTs are within nicol limits. Iron is 15, TIBC is 361, percent saturation is 4, ferritin is 5.5. Looks like the patient has stool for guaiac done this morning and it is positive. ASSESSMENT: A 48-year-old female with recent CVA with right-sided weakness and history of hypertension. Came to the hospital with altered mental status. MRI of the brain showed chronic occlusion of the left internal carotid artery. The patient with iron deficiency anemia now positive guaiac. PLAN: The patient is going to get 3 units of packed RBCs today. Continue the GI prophylaxis. She is on Protonix. The patient may benefit from EGD, rule out any peptic ulcer disease, rule out GI bleed. I spoke to the sister on the phone and she is agreeable to the GI evaluation. Continue to monitor H and H and for any overt GI bleed. Request for ct scan abdomen and pelvis with oral contrast. Thank you for this consult and for allowing us to participate in your patient's care. We will make further recommendations based upon patient's clinical course. The patient was seen and case discussed with Dr. Zuniga. CHELSEA Funez STEPHANIE
[2017-04-14 14:15] LABS: BARBITURATES, UR NEGATIVE (NEGATIVE); BENZODIAZEPINES, UR NEGATIVE (NEGATIVE); OPIATES, UR NEGATIVE (NEGATIVE); PHENCYCLIDINE, UR NEGATIVE (NEGATIVE)
[2017-04-14] MEDS ORDERED: Barium Sulfate Susp 2.1% w/v, 2.0% w/w 450 mL Bottle PO ONE (15:46)
--- NOTE | 2017-04-14 21:03 | CT ---
EXAM: CT Abdomen and Pelvis Without Intravenous Contrast CLINICAL HISTORY: 42 years old, female; Signs and symptoms; Other: Anemia TECHNIQUE: Axial computed tomography images of the abdomen and pelvis without intravenous contrast. This CT exam was performed using one or more of the following dose reduction techniques: automated exposure control, adjustment of the mA and/or kV according to patient size, and/or use of iterative reconstruction technique. Coronal and sagittal reformatted images were created and reviewed. COMPARISON: No relevant prior studies available. FINDINGS: Limitations: Lack of intravenous contrast. Lower thorax: Minimal atelectasis/scarring. ABDOMEN: Liver: Unremarkable. Gallbladder and bile ducts: Cholecystectomy. No ductal dilation. Pancreas: Unremarkable. No ductal dilation. Spleen: No splenomegaly. Adrenals: No mass. Kidneys and ureters: No renal calculi. No hydronephrosis. Stomach and bowel: Gastric distention with debris. Moderate amount of stool within colon. No definite mural thickening. No obstruction. Appendix: No findings to suggest acute appendicitis. PELVIS: Bladder: Unremarkable. No stones. Reproductive: Unremarkable as visualized. ABDOMEN and PELVIS: Intraperitoneal space: No significant fluid collection. No free air. Bones/joints: Degenerative changes of lower lumbar spine. No acute fracture. Soft tissues: Unremarkable. Vasculature: Unremarkable. No aneurysm. Lymph nodes: No pathologically enlarged lymph nodes. IMPRESSION: 1. No definite acute intraabdominal abnormality. 2. Incidental/non-acute findings are described above.
--- NOTE | 2017-04-14 23:50 | CP.PCM.CON ---
Past Patient History - Infectious Disease Hx of Infectious Diseases: None - Tetanus Immunizations Tetanus Immunization: Unknown - Past Social History Smoking Status: Former Smoker Home Situation {Lives}: With Family - CARDIAC Hx Cardiac Disorders: Yes Hx Hypertension: Yes - PULMONARY Hx Respiratory Disorders: No - NEUROLOGICAL HX Cerebrovascular Accident: Yes (1 monthago) - HEENT Hx HEENT Problems: No - RENAL Hx Chronic Kidney Disease: No - ENDOCRINE/METABOLIC Hx Endocrine Disorders: No - HEMATOLOGICAL/ONCOLOGICAL Hx Blood Disorders: No - INTEGUMENTARY Hx Dermatological Problems: No - MUSCULOSKELETAL/RHEUMATOLOGICAL Hx Arthritis: Yes - GASTROINTESTINAL Hx Gastrointestinal Disorders: No - GENITOURINARY/GYNECOLOGICAL Hx Genitourinary Disorders: No - PSYCHIATRIC Hx Psychophysiologic Disorder: Yes Hx Anxiety: Yes Hx Bipolar Disorder: Yes Hx Depression: Yes Hx Emotional Abuse: No Hx Physical Abuse: No - SURGICAL HISTORY Hx Surgeries: Yes Hx Cholecystectomy: Yes - ANESTHESIA Hx Anesthesia: Yes Hx Anesthesia Reactions: No Hx Malignant Hyperthermia: No Meds Allergies/Adverse Reactions: Allergies Allergy/AdvReac Type Severity Reaction Status Date / Time No Known Allergies Allergy Verified 04/10/17 07:23 - Medications Medications: Current Medications Acetaminophen (Tylenol 325mg Tab) 650 mg PO Q4H PRN PRN Reason: Pain, moderate (4-7) Last Admin: 04/14/17 23:07 Dose: 650 mg Carvedilol (Coreg) 3.[address] [facility] Last Admin: 04/14/17 18:07 Dose: 3.125 mg Losartan Potassium (Cozaar) [address] [facility] Last Admin: 04/14/17 10:03 Dose: 25 mg Pantoprazole Sodium (Protonix Ec Tab) [address] [facility] Last Admin: 04/14/17 05:14 Dose: 40 mg Thiamine HCl (Vitamin B1 Inj) [address] [facility] Last Admin: 04/14/17 10:02 Dose: 100 mg Results - Vital Signs Recent Vital Signs: Last Vital Signs Temp 98.0 F 04/14/17 21:40 Pulse 70 04/14/17 21:40 Resp 20 04/14/17 21:40 BP 164/94 H 04/14/17 21:40 Pulse Ox 100 04/14/17 16:00 - Labs Result Diagrams: 04/14/17 06:40 04/14/17 06:40 Labs: Laboratory Results - last 24 hr 08/09/3004/14/17 04/14/17 06:40 06:40 11:15 WBC 6.3 RBC 3.75 Hgb 8.0 L Hct 26.9 L MCV 71.7 L MCH 21.3 L MCHC 29.7 L RDW 20.0 H Plt Count 503 H MPV 8.2 Gran % 42.7 L Lymph % (Auto) 42.8 H Starr % (Auto) 7.8 H Eos % (Auto) 6.4 H Baso % (Auto) 0.3 Gran # 2.69 Lymph # 2.7 Starr # 0.5 Eos # 0.4 Baso # 0.02 Sodium 140 Potassium 3.9 Chloride 106 Carbon Dioxide 24 Anion Gap 14 BUN 15 Creatinine 0.5 Est GFR ( Amer) > 60 Est GFR (Non-Af Amer) > 60 Random Glucose 91 Calcium 8.8 Total Bilirubin 0.2 AST 33 ALT 23 Alkaline Phosphatase 79 Total Protein 6.3 Albumin 3.5 Globulin 2.8 Albumin/Globulin Ratio 1.2 Stool Occult Blood Urine Opiates Screen Urine Methadone Screen Ur Barbiturates Screen Ur Phencyclidine Scrn Ur Amphetamines Screen U Benzodiazepines Scrn U Oth Cocaine Metabols U Cannabinoids Screen Blood Type A POSITIVE Blood Type Confirm Antibody Screen Negative Crossmatch See Detail BBK History Checked No verified bt 04/14/17 04/14/17 04/14/17 11:20 13:10 13:43 WBC RBC Hgb Hct MCV MCH MCHC RDW Plt Count MPV Gran % Lymph % (Auto) Starr % (Auto) Eos % (Auto) Baso % (Auto) Gran # Lymph # Starr # Eos # Baso # Sodium Potassium Chloride Carbon Dioxide Anion Gap BUN Creatinine Est GFR ( Amer) Est GFR (Non-Af Amer) Random Glucose Calcium Total Bilirubin AST ALT Alkaline Phosphatase Total Protein Albumin Globulin Albumin/Globulin Ratio Stool Occult Blood Positive H Urine Opiates Screen Negative Urine Methadone Screen Negative Ur Barbiturates Screen Negative Ur Phencyclidine Scrn Negative Ur Amphetamines Screen Negative U Benzodiazepines Scrn Negative U Oth Cocaine Metabols Negative U Cannabinoids Screen Negative Blood Type Blood Type Confirm A POSITIVE Antibody Screen Crossmatch BBK History Checked Assessment & Plan - Assessment and Plan (Free Text) Assessment: is an addendum to the GI consultation report dictated by Maria Del Carmen asher APN. The patient was seen and evaluated. discussed with patient and patient's family follow up the hemoglobin request a CT scan of the abdomen and pelvis Would consider EGD and colonoscopy after reviewing We will discuss with Dr. Narvaez Thank you very much for allowing us to participate in the care of the patient - Date & Time Date: 04/14/17 Time: 14:45
[2017-04-15] MEDS: Pantoprazole 40 mg EC Tab PO SCH (06:20)
[2017-04-15 08:17] LABS: BASO # 0.03 K/mm3 (0.0-2.0); BASO % 0.3 % (0.0-3.0); EOS # 0.4 (0.0-0.7); GRAN % 72.9 % (50.0-68.0); LYMPH # 1.8 (1.2-3.4); LYMPH % 17.9 % (22.0-35.0); MEAN CELL VOLUME 74.2 fL (80.0-105.0); MEAN CORPUSCULAR HEMOGLOBIN 23.7 pg (25.0-35.0); MEAN CORPUSCULAR HGB CONC 31.9 g/dl (31.0-37.0); MEAN PLATELET VOLUME 8.2 fl (7.0-11.0); MONO # 0.5 (0.1-0.6); MONO % 4.9 % (1.0-6.0); PLATELET COUNT 454 10^3/uL (120.0-450.0); RBC 4.73 10^6/uL (3.5-6.1); RED CELL DISTRIBUTION WIDTH 19.1 % (11.5-14.5)
[2017-04-15 08:26] LABS: HEMOGLOBIN 11.2 gm/dL (12.0-16.0)
[2017-04-15 08:30] LABS: ALB/GLOB RATIO 1.2 (1.1-1.8); ALBUMIN 3.5 g/dL (3.0-4.8); ALT/SGPT 41 U/L (7-56); AST/SGOT 48 U/L (15-39); BLOOD UREA NITROGEN 7 mg/dL (7-21); CALCIUM 9.1 mg/dL (8.4-10.5); GFR AFRICAN-AMERICAN > 60; GFR NON-AFRICAN AMERICAN > 60
[2017-04-15] MEDS: Thiamine 100 mg/ml Inj IM SCH (09:05)
--- NOTE | 2017-04-15 09:25 | CP.PCM.PN ---
Subjective - Date & Time of Evaluation Date of Evaluation: 04/15/17 Time of Evaluation: 09:00 - Subjective Subjective: NAD, FOB heme positive Objective - Vital Signs/Intake and Output Vital Signs (last 24 hours): Temp Pulse Resp BP Pulse Ox 98.3 F 81 20 154/98 H 100 04/14/17 23:56 04/15/17 09:05 04/14/17 23:56 04/15/17 09:05 04/14/17 16:00 Intake and Output: 04/15/17 04/15/17 06:59 18:59 Intake Total 625 Balance 625 - Medications Medications: Current Medications Acetaminophen (Tylenol 325mg Tab) 650 mg PO Q4H PRN PRN Reason: Pain, moderate (4-7) Last Admin: 04/15/17 04:55 Dose: 650 mg Bisacodyl (Dulcolax) 10 mg PO ONCE ONE Stop: 04/15/17 14:01 Carvedilol (Coreg) 3.125 mg PO BID [facility] Last Admin: 04/15/17 09:05 Dose: 3.125 mg Losartan Potassium (Cozaar) 50 mg PO DAILY [facility] Pantoprazole Sodium (Protonix Ec Tab) 40 mg PO 0600 [facility] Last Admin: 04/15/17 06:20 Dose: 40 mg Polyethylene Glycol/Electrolytes (Golytely) 4,000 ml PO ONCE ONE Stop: 04/15/17 16:01 Thiamine HCl (Vitamin B1 Inj) 100 mg IM DAILY [facility] Last Admin: 04/15/17 09:05 Dose: 100 mg - Labs Labs: 04/15/17 08:00 04/15/17 08:00 PT 11.2 Seconds (9.9-11.8) 04/10/17 07:25 INR 1.04 (0.93-1.08) 04/10/17 07:25 APTT 26.8 Seconds (23.7-30.8) 04/10/17 07:25 - Respiratory Exam Respiratory Exam: Clear to Ausculation Bilateral, NORMAL BREATHING PATTERN - Cardiovascular Exam Cardiovascular Exam: REGULAR RHYTHM - GI/Abdominal Exam GI & Abdominal Exam: Soft, Normal Bowel Sounds - Extremities Exam Extremities Exam: Normal Inspection - Neurological Exam Neurological Exam: Alert, Awake - Skin Skin Exam: Dry, Warm Assessment and Plan (1) Altered mental status Status: Resolved (2) Hypertension Status: Chronic (3) Cerebrovascular accident (CVA) Status: Chronic (4) Anemia Status: Acute (5) GI (gastrointestinal bleed) Status: Acute - Assessment and Plan (Free Text) Plan: for endoscopy in am, s/p transfx 2u PRBC's
--- NOTE | 2017-04-15 12:13 | PN ---
GI FOLLOWUP NOTE: SUBJECTIVE: The patient seen and examined at the bedside earlier today. Denies any nausea, vomiting, or abdominal pain. Had 2 units of packed RBCs yesterday, no acute overnight event reported. She did go for CAT scan of abdomen and pelvis yesterday with oral contrast and that showed no acute intraabdominal abnormality, did show moderate amount of stool in the colon. PHYSICAL EXAMINATION: VITAL SIGNS: Temperature is 98.2, blood pressure 154/98, pulse 81, respirations 20. HEENT: Sclerae are anicteric. NECK: Supple. CARDIAC: S1 and S2. LUNGS: Sounds are clear. ABDOMEN: With bowel sounds, soft, nontender. No rebound or guarding. EXTREMITIES: Positive pedal pulses. No edema. NEUROLOGIC: Awake, alert, and oriented. LABORATORY DATA: WBC is 10.0, hemoglobin 11.2 and hematocrit is 35.1, platelet is 454. Sodium 141, potassium 4.0, BUN 7, creatinine is 0.5. Total bilirubin is 0.4, AST 48, ALT 41, alkaline phosphate is 89. ASSESSMENT: This is a 42-year-old female with a past medical history of CVA with right-sided weakness and history of hypertension came with altered mental status, weakness. MRI of the brain showing chronic occlusion of the left internal carotid artery. She has noted iron deficiency anemia, status post 2 units of packed RBCs and is positive guaiac. PLAN We are going to prepare the patient for endoscopy and colonoscopy tomorrow. She is currently on a clear liquid diet and we will start GoLYTELY prep this afternoon and be given a dose of Dulcolax, see orders. We will continue to monitor her H and H for any of her GI bleed. NPO after midnight except her medications. Did discuss yesterday with her power of environmental attorney her sister, Nicol Leach, regarding endoscopic evaluation with time. We will contact for consents. Discussed with Dr. Narvaez as well. The patient was seen and case discussed with Dr. Zuniga. CHELSEA Funez
[2017-04-15] MEDS ORDERED: Bisacodyl 5mg EC Tab PO ONE (14:00)
[2017-04-15] MEDS ORDERED: Peg-Electrolyte Oral Soln 4L (Golytely) PO ONE (16:00)
[2017-04-16] MEDS: Pantoprazole 40 mg EC Tab PO SCH ×2 (05:48→06:47)
[2017-04-16 07:13] LABS: BASO # 0.04 K/mm3 (0.0-2.0); BASO % 0.5 % (0.0-3.0); EOS # 0.4 (0.0-0.7); EOS % 5.3 % (1.5-5.0); GRAN # 4.75 (1.4-6.5); GRAN % 58.3 % (50.0-68.0); HEMOGLOBIN 11.3 gm/dL (12.0-16.0); LYMPH # 2.4 (1.2-3.4); LYMPH % 28.9 % (22.0-35.0); MEAN CELL VOLUME 74.1 fL (80.0-105.0); MEAN CORPUSCULAR HEMOGLOBIN 24.4 pg (25.0-35.0); MEAN CORPUSCULAR HGB CONC 32.8 g/dl (31.0-37.0); MEAN PLATELET VOLUME 8.4 fl (7.0-11.0); MONO # 0.6 (0.1-0.6); PLATELET COUNT 527 10^3/uL (120.0-450.0); RBC 4.64 10^6/uL (3.5-6.1); RED CELL DISTRIBUTION WIDTH 19.8 % (11.5-14.5); WHITE BLOOD COUNT 8.1 10^3/ul (4.5-11.0)
[2017-04-16 07:30] LABS: BLOOD UREA NITROGEN 9 mg/dL (7-21); CALCIUM 9.4 mg/dL (8.4-10.5); GFR AFRICAN-AMERICAN > 60; GFR NON-AFRICAN AMERICAN > 60
[2017-04-16] MEDS ORDERED: Propofol 10 mg/ml Inj (20 ML) ONE ×2 (08:12→09:12)
[2017-04-16] MEDS ORDERED: Sodium Chloride 0.9% 1,000 ML IV SCH (09:30)
--- NOTE | 2017-04-16 09:35 | CP.PCM.PN ---
Subjective - Date & Time of Evaluation Date of Evaluation: 04/16/17 Time of Evaluation: 20:00 - Subjective Subjective: NAD Objective - Vital Signs/Intake and Output Vital Signs (last 24 hours): Temp Pulse Resp BP Pulse Ox 98.3 F 70 20 133/83 98 04/16/17 08:07 04/16/17 08:07 04/16/17 08:07 04/16/17 08:07 04/16/17 09:04 Intake and Output: 04/16/17 04/16/17 06:59 18:59 Intake Total 360 Output Total 300 Balance 60 - Medications Medications: Current Medications Acetaminophen (Tylenol 325mg Tab) 650 mg PO Q4H PRN PRN Reason: Pain, moderate (4-7) Last Admin: 04/16/17 06:49 Dose: 650 mg Carvedilol (Coreg) 3.125 mg PO BID [facility] Last Admin: 04/15/17 18:49 Dose: 3.125 mg Sodium Chloride (Sodium Chloride 0.9%) 1,000 mls @ 75 mls/hr IV .[id number] [facility] Stop: 04/16/17 11:31 Losartan Potassium (Cozaar) 50 mg PO DAILY [facility] Last Admin: 04/15/17 13:57 Dose: Not Given Pantoprazole Sodium (Protonix Ec Tab) 40 mg PO 0600 [facility] Last Admin: 04/16/17 06:47 Dose: 40 mg Thiamine HCl (Vitamin B1 Inj) 100 mg IM DAILY [facility] Last Admin: 04/15/17 09:05 Dose: 100 mg - Labs Labs: 04/16/17 06:30 04/16/17 06:30 PT 11.2 Seconds (9.9-11.8) 04/10/17 07:25 INR 1.04 (0.93-1.08) 04/10/17 07:25 APTT 26.8 Seconds (23.7-30.8) 04/10/17 07:25 - Respiratory Exam Respiratory Exam: Clear to Ausculation Bilateral, NORMAL BREATHING PATTERN - Cardiovascular Exam Cardiovascular Exam: REGULAR RHYTHM - GI/Abdominal Exam GI & Abdominal Exam: Soft, Normal Bowel Sounds - Extremities Exam Extremities Exam: Normal Inspection - Neurological Exam Neurological Exam: Alert, Awake - Skin Skin Exam: Dry, Warm Assessment and Plan (1) Altered mental status Status: Resolved (2) Hypertension Status: Chronic (3) Cerebrovascular accident (CVA) Status: Chronic (4) Anemia Status: Acute (5) GI (gastrointestinal bleed) Status: Acute - Assessment and Plan (Free Text) Plan: for endoscopy today
[2017-04-16] MEDS: Thiamine 100 mg/ml Inj IM SCH (10:05)
--- NOTE | 2017-04-16 17:35 | CP.PCM.PCO ---
Physician Communication Note - Physician Communication Note Physician Communication Note: spoke to POEhsan Recinosa egd/colon findings, need rpeat egd FU ulcers, rec STORE CLERK CHECKER FU
[2017-04-16 18:04] VITALS: RESP 18
[2017-04-17] MEDS: Pantoprazole 40 mg EC Tab PO SCH (06:47)
[2017-04-17 07:53] VITALS: BP 150/91; PULSE 64; TEMP 97.8; O2SAT 99
[2017-04-17] MEDS: Thiamine 100 mg/ml Inj IM SCH (09:13)
--- NOTE | 2017-04-17 11:05 | CP.PCM.PN ---
Subjective - Date & Time of Evaluation Date of Evaluation: 04/17/17 Time of Evaluation: 11:00 - Subjective Subjective: NAD Objective - Vital Signs/Intake and Output Vital Signs (last 24 hours): Temp Pulse Resp BP Pulse Ox 97.8 F 64 18 150/91 H 99 04/17/17 07:52 04/17/17 09:12 04/17/17 07:52 04/17/17 09:12 04/17/17 07:52 Intake and Output: 04/17/17 04/17/17 06:59 18:59 Intake Total 540 Output Total 350 Balance 190 - Medications Medications: Current Medications Acetaminophen (Tylenol 325mg Tab) 650 mg PO Q4H PRN PRN Reason: Pain, moderate (4-7) Last Admin: 04/17/17 09:13 Dose: 650 mg Carvedilol (Coreg) 6.25 mg PO BID [facility] Losartan Potassium (Cozaar) 50 mg PO DAILY [facility] Last Admin: 04/17/17 09:12 Dose: 50 mg Pantoprazole Sodium (Protonix Ec Tab) 40 mg PO 0600 [facility] Last Admin: 04/17/17 06:47 Dose: 40 mg Thiamine HCl (Vitamin B1 Inj) 100 mg IM DAILY [facility] Last Admin: 04/17/17 09:13 Dose: 100 mg - Labs Labs: 04/16/17 06:30 04/16/17 06:30 PT 11.2 Seconds (9.9-11.8) 04/10/17 07:25 INR 1.04 (0.93-1.08) 04/10/17 07:25 APTT 26.8 Seconds (23.7-30.8) 04/10/17 07:25 - Respiratory Exam Respiratory Exam: Clear to Ausculation Bilateral, NORMAL BREATHING PATTERN - Cardiovascular Exam Cardiovascular Exam: REGULAR RHYTHM - GI/Abdominal Exam GI & Abdominal Exam: Soft, Normal Bowel Sounds - Neurological Exam Neurological Exam: Alert, Awake - Skin Skin Exam: Dry, Warm Assessment and Plan (1) Altered mental status Status: Resolved (2) Hypertension Status: Chronic (3) Cerebrovascular accident (CVA) Status: Chronic (4) Anemia Status: Acute (5) GI (gastrointestinal bleed) Status: Acute - Assessment and Plan (Free Text) Plan: increase carvedilol to 6.25 bid for elevated bp, SW for dc planning, hb/hct getachew
--- NOTE | 2017-04-17 14:42 | CP.PCM.PN ---
Subjective - Date & Time of Evaluation Date of Evaluation: 04/17/17 Time of Evaluation: 10:00 - Subjective Subjective: seen and examined earlier today at bedside. Chart reviewed. Status post EGD colonoscopy, found to have ulcers, no active GI bleed, and internal hemorrhoids. Denies any fever, chills, shortness breath, nausea, vomiting or abdominal pain. denies any overt GI bleed. Tolerating oral intake. No new complaints. Objective - Vital Signs/Intake and Output Vital Signs (last 24 hours): Temp Pulse Resp BP Pulse Ox 97.8 F 64 18 150/91 H 99 04/17/17 07:52 04/17/17 09:12 04/17/17 07:52 04/17/17 09:12 04/17/17 07:52 Intake and Output: 04/17/17 04/17/17 06:59 18:59 Intake Total 540 Output Total 350 Balance 190 - Medications Medications: Current Medications Acetaminophen (Tylenol 325mg Tab) 650 mg PO Q4H PRN PRN Reason: Pain, moderate (4-7) Last Admin: 04/17/17 09:13 Dose: 650 mg Carvedilol (Coreg) 6.25 mg PO BID [facility] Losartan Potassium (Cozaar) 50 mg PO DAILY [facility] Last Admin: 04/17/17 09:12 Dose: 50 mg Pantoprazole Sodium (Protonix Ec Tab) 40 mg PO 0600 [facility] Last Admin: 04/17/17 06:47 Dose: 40 mg Thiamine HCl (Vitamin B1 Inj) 100 mg IM DAILY [facility] Last Admin: 04/17/17 09:13 Dose: 100 mg - Labs Labs: 04/16/17 06:30 04/16/17 06:30 PT 11.2 Seconds (9.9-11.8) 04/10/17 07:25 INR 1.04 (0.93-1.08) 04/10/17 07:25 APTT 26.8 Seconds (23.7-30.8) 04/10/17 07:25 - Constitutional Appears: No Acute Distress - Head Exam Head Exam: NORMOCEPHALIC - Eye Exam Eye Exam: Normal appearance. absent: Scleral icterus - ENT Exam ENT Exam: Mucous Membranes Moist - Neck Exam Neck Exam: Normal Inspection - Respiratory Exam Respiratory Exam: NORMAL BREATHING PATTERN. absent: Respiratory Distress - Cardiovascular Exam Cardiovascular Exam: +S1, +S2 - GI/Abdominal Exam GI & Abdominal Exam: Soft, Normal Bowel Sounds. absent: Guarding, Tenderness, Rebound - Extremities Exam Extremities Exam: Normal Capillary Refill. absent: Calf Tenderness, Pedal Edema - Neurological Exam Neurological Exam: Alert, Awake, Oriented x3 - Skin Skin Exam: Dry, Warm Assessment and Plan - Assessment and Plan (Free Text) Assessment: ASSESSMENT: CVA with right-sided weakness iron deficiency anemia, status post blood transfusion Positive guaiac Status post EGD/colon, found ulcer disease, colon was negative Chronic occlusion left internal carotid artery PLAN diet as tolerated Avoid NSAIDs Continue Protonix 40 daily On aspirin Discuss with Nicol AREVALO yesterday regarding EGD and colonoscopy results., Patient will need repeat endoscopy in 2 months time to check healing of ulcers, recommend [facility] or any participating GI doctor of their choosing or recommendation from PCP. EGD/Colon report given as well as RX for Protonix 40 mg daily and recommend [employer] follow-up for h/o menometrorrhagia. Monitor H&H Seen and discussed with Dr. Zuniga.
--- NOTE | 2017-04-20 23:46 | CP.PCM.PN ---
Subjective - Date & Time of Evaluation Date of Evaluation: 04/15/17 Objective - Vital Signs/Intake and Output Vital Signs (last 24 hours): Temp Pulse Resp BP Pulse Ox 98 F 78 19 158/97 H 100 04/15/17 16:00 04/15/17 16:00 04/15/17 16:00 04/15/17 16:00 04/15/17 16:00 Intake and Output: 04/15/17 04/16/17 18:59 06:59 Intake Total 925 360 Balance 925 360 - Medications Medications: Current Medications Acetaminophen (Tylenol 325mg Tab) 650 mg PO Q4H PRN PRN Reason: Pain, moderate (4-7) Last Admin: 04/15/17 23:28 Dose: 650 mg Carvedilol (Coreg) 3.125 mg PO BID [facility] Last Admin: 04/15/17 18:49 Dose: 3.125 mg Losartan Potassium (Cozaar) 50 mg PO DAILY [facility] Last Admin: 04/15/17 13:57 Dose: Not Given Pantoprazole Sodium (Protonix Ec Tab) 40 mg PO 0600 [facility] Last Admin: 04/15/17 06:20 Dose: 40 mg Thiamine HCl (Vitamin B1 Inj) 100 mg IM DAILY [facility] Last Admin: 04/15/17 09:05 Dose: 100 mg - Labs Labs: 04/15/17 08:00 04/15/17 08:00 PT 11.2 Seconds (9.9-11.8) 04/10/17 07:25 INR 1.04 (0.93-1.08) 04/10/17 07:25 APTT 26.8 Seconds (23.7-30.8) 04/10/17 07:25 Assessment and Plan - Assessment and Plan (Free Text) Assessment: t
== END 2017-04-17 14:37 | disposition home or self-care (01) | DRG 566 ==
LOC: ED 07:08 → ERH 09:46 → 3RNO 10:24 → OBSVTOIN 04-13 09:19
PROVIDERS: ADMIT Internal Medicine; ATTEND Internal Medicine
PROC: 30233N1 Transfusion of Nonautologous Red Blood Cells into Peripheral Vein, Percutaneous Approach (ICD-10-PCS; 2017-04-14)
PROC: 0DB68ZX Excision of Stomach, Via Natural or Artificial Opening Endoscopic, Diagnostic (ICD-10-PCS; principal; 2017-04-16 08:00)
PROC: 0DJD8ZZ Inspection of Lower Intestinal Tract, Via Natural or Artificial Opening Endoscopic (ICD-10-PCS; 2017-04-16 08:00)
DX: E16.2 Hypoglycemia, unspecified (principal); K56.2 Volvulus; G93.89 Other specified disorders of brain; K26.9 Duodenal ulcer, unspecified as acute or chronic, without hemorrhage or perforation; I65.22 Occlusion and stenosis of left carotid artery; K92.2 Gastrointestinal hemorrhage, unspecified; I69.351 Hemiplegia and hemiparesis following cerebral infarction affecting right dominant side; D50.9 Iron deficiency anemia, unspecified; I10 Essential (primary) hypertension; F41.9 Anxiety disorder, unspecified; F32.9 Major depressive disorder, single episode, unspecified; K25.9 Gastric ulcer, unspecified as acute or chronic, without hemorrhage or perforation; K29.50 Unspecified chronic gastritis without bleeding; K64.8 Other hemorrhoids; N92.0 Excessive and frequent menstruation with regular cycle; Z87.891 Personal history of nicotine dependence; Z79.82 Long term (current) use of aspirin

== ENCOUNTER 2017-05-08 10:48 | Emergency (ER) | payer OTHER ==
[2017-05-08 11:01] VITALS: BMI 18.8
[2017-05-08 11:18] VITALS: O2SAT 100
--- NOTE | 2017-05-08 11:38 | ED PDOC ---
Arrival/HPI - General Chief Complaint: Upper Extremity Problem/Injury Time Seen by Provider: 05/08/17 10:55 Historian: Patient - History of Present Illness Narrative History of Present Illness (Text): 05/08/17 11:34 42 year old female, whose past medical history includes hypertension, CVA with residual right-sided weakness, depression, and anxiety, was brought in to the emergency department for 2 day history of right shoulder pain that is worse with movement, patient is currently undergoing physical therapy due to residual right-sided weakness from her recent CVA. After having physical therapy yesterday, she was advised by her therapist to be evaluated by a doctor regarding her right shoulder pain. Otherwise denies any trauma, injury, fever, chills, numbness, other joint pain, chest pain, shortness of breath, headache, dizziness. Patient has no other complaints. PMD: Dallin Narvaez Past Medical History - Provider Review Nursing Documentation Reviewed: Yes - Infectious Disease Hx of Infectious Diseases: None - Tetanus Immunization Tetanus Immunization: Unknown - Cardiac Hx Cardiac Disorders: Yes Hx Hypertension: Yes - Pulmonary Hx Respiratory Disorders: No - Neurological HX Cerebrovascular Accident: Yes (1 monthago) - HEENT Hx HEENT Disorder: No - Renal Hx Renal Disorder: No - Endocrine/Metabolic Hx Endocrine Disorders: No - Hematological/Oncological Hx Blood Transfusions: Yes - Integumentary Hx Dermatological Disorder: No - Musculoskeletal/Rheumatological Hx Arthritis: Yes - Gastrointestinal Hx Gastrointestinal Disorders: No - Genitourinary/Gynecological Hx Genitourinary Disorders: No - Psychiatric Hx Psychophysiologic Disorder: Yes Hx Anxiety: Yes Hx Bipolar Disorder: Yes Hx Depression: Yes Hx Substance Use: No - Surgical History Hx Cholecystectomy: Yes - Anesthesia Hx Anesthesia Reactions: No Hx Malignant Hyperthermia: No - Suicidal Assessment Feels Threatened In Home Enviroment: No Family/Social History - Physician Review Nursing Documentation Reviewed: Yes Family/Social History: No Known Family HX Smoking Status: Former Smoker Hx Alcohol Use: No Hx Substance Use: No Hx Substance Use Treatment: No Allergies/Home Meds Allergies/Adverse Reactions: Allergies No Known Allergies Allergy (Verified 04/10/17 07:23) Home Medications: Home Meds Medication Instructions Recorded Confirmed Tramadol HCl [Ultram] 50 mg PO Q8H PRN 02/21/17 05/08/17 Alprazolam 0.25 mg PO BID 04/10/17 05/08/17 Physical Exam - Physical Exam Narrative Physical Exam (Text): 05/08/17 11:36 GENERAL APPEARANCE: Patient is awake, alert, oriented x 3, in mild painful distress. SKIN: Warm, dry; (-) cyanosis. HEAD: (-) scalp swelling, (-) scalp tenderness. NECK: (-) tenderness, (-) stiffness. CHEST AND RESPIRATORY: (-) chest wall tenderness. Lungs: Clear; breath sounds equal bilaterally. UPPER EXTREMITY: (+) tenderness of anterior R shoulder; (-) crepitus, (-) deformity, (-) clavicular tenderness, (-) acromio-clavicular tenderness or deformity. Limited range of motion secondary to pain and due to residual right- sided weakness of the upper extremity, (-) distal neurovascular deficit. Elbow and wrist: (-) tenderness, (-) limitation of motion except. Vital Signs Temp Pulse Resp BP Pulse Ox 05/08/17 13:52 97.6 F 80 18 140/82 100 05/08/17 13:42 69 18 138/79 100 05/08/17 13:29 97.9 F 05/08/17 12:00 75 18 144/89 100 05/08/17 11:16 98.7 F 80 17 146/94 H 100 Medical Decision Making ED Course and Treatment: 05/08/17 11:36 42 year old female, whose past medical history includes hypertension, CVA with residual right-sided weakness, depression, and anxiety, was brought in to the emergency department for 2 day history of right shoulder pain. Plan: - XR R shoulder - Ultram PO - Shoulder sling 05/08/17 13:27 XR R shoulder : (-) fracture, (-) dislocation, as read by PA Patient advised that official radiology read of XR is still pending and will call the patient if there is any discrepancy within 24 hours. X-ray results discussed with the patient in great detail. Patient advised to apply ice to her shoulder and to take [id number] Tylenol as needed for pain. To continue PT as tolerated. Shoulder sling applied. Patient advised to follow up with primary care physician in 1-2 days without fail. Return to the emergency room at any time for any new or worsening symptoms. Patient states she fully agrees with and understands discharge instructions. States that she agrees with the plan and disposition. Verbalized and repeated discharge instructions and plan. I have given the patient opportunity to ask any additional questions. - RAD Interpretation Radiology Orders: 05/08/17 12:23 SHOULDER RIGHT [RAD] Stat - Medication Orders Current Medication Orders: Discontinued Medications Acetaminophen (Tylenol 325mg Tab) 975 mg PO STAT [facility] Stop: 05/08/17 13:01 Last Admin: 05/08/17 13:29 Dose: 975 mg Tramadol HCl (Ultram) 50 mg PO STAT [facility] Stop: 05/08/17 11:27 Last Admin: 05/08/17 12:09 Dose: Not Given Non-Admin Reason: Patient Refused - PA / OPERATING SYSTEM PROGRAMMER / Resident Statement /DO has reviewed & agrees with the documentation as recorded. Disposition/Present on Arrival - Present on Arrival Any Indicators Present on Arrival: No History of DVT/PE: No History of Uncontrolled Diabetes: No Urinary Catheter: No History of Decub. Ulcer: No History Surgical Site Infection Following: None - Disposition Have Diagnosis and Disposition been Completed?: Yes Diagnosis: Shoulder pain, right Disposition: HOME/ ROUTINE Disposition Time: 13:27 Patient Plan: Discharge Condition: STABLE Discharge Instructions (ExitCare): Shoulder Pain (ED) Print Language: PORTUGUESE Additional Instructions: Thank you for letting us take care of you today. You were treated for R shoulder pain. The emergency medical care you received today was directed at your acute symptoms. Apply ice, take tylenol for pain. Return to the Emergency Department if your symptoms worsen, do not improve, or if you have any other problems. Please contact your doctor in 2 days for re-evaluation and follow up. Bring any paperwork you were given at discharge with you along with any medications you are taking to your follow up visit. Our treatment cannot replace ongoing medical care by a primary care provider (PCP) outside of the emergency department. Thank you for allowing the [facility] team to be part of your care today. Referrals: Dallin Narvaez JD, MD [Primary Care Provider] - Follow up with primary Forms: [employer] ([place])
[2017-05-08 12:26] VITALS: RESP 18
--- NOTE | 2017-05-08 13:29 | RAD ---
PROCEDURE: Radiographs of the Right Shoulder HISTORY: right shoulder pain COMPARISON: No prior. FINDINGS: BONES: Normal. No fracture. JOINTS: Normal. Glenohumeral and acromioclavicular joints preserved. No osteoarthritis. SOFT TISSUES: Normal. OTHER FINDINGS: None. IMPRESSION: Normal radiographs of the right shoulder.
[2017-05-08 13:53] VITALS: BP 140/82; PULSE 80; TEMP 97.6
== END 2017-05-08 13:54 | disposition home or self-care (01) ==
LOC: ED 10:48
DX: M25.511 Pain in right shoulder (principal)

== ENCOUNTER 2017-07-10 09:16 | Emergency (ER) | payer OTHER ==
[2017-07-10 09:16] VITALS: BMI 18.8
[2017-07-10 09:48] VITALS: O2SAT 100
--- NOTE | 2017-07-10 09:55 | ED PDOC ---
Arrival/HPI - General Chief Complaint: Anxiety Time Seen by Provider: 07/10/17 09:21 Historian: Patient - History of Present Illness Narrative History of Present Illness (Text): 07/10/17 09:55 42yo female with PMhx of hypertension and CVA biba for cough. Patient's son who is by the bedside states patient suddenly started coughing and gasping for air, [place]. Patient states her symptoms have resolved. She thinks it was because is cold outside and she wasn't well covered. She denies any specific somatic complaint or psychological complaint in ED. Past Medical History - Provider Review Nursing Documentation Reviewed: Yes - Infectious Disease Hx of Infectious Diseases: None - Tetanus Immunization Tetanus Immunization: Unknown - Reproductive Menopause: No - Cardiac Hx Cardiac Disorders: Yes Hx Hypertension: Yes - Pulmonary Hx Respiratory Disorders: No - Neurological HX Cerebrovascular Accident: Yes - HEENT Hx HEENT Disorder: No - Renal Hx Renal Disorder: No - Endocrine/Metabolic Hx Endocrine Disorders: No - Hematological/Oncological Hx Blood Transfusions: Yes - Integumentary Hx Dermatological Disorder: No - Musculoskeletal/Rheumatological Hx Arthritis: Yes - Gastrointestinal Hx Gastrointestinal Disorders: No - Genitourinary/Gynecological Hx Genitourinary Disorders: No - Psychiatric Hx Psychophysiologic Disorder: Yes Hx Anxiety: Yes Hx Bipolar Disorder: Yes Hx Depression: Yes Hx Substance Use: No - Surgical History Hx Cholecystectomy: Yes - Anesthesia Hx Anesthesia Reactions: No Hx Malignant Hyperthermia: No - Suicidal Assessment Feels Threatened In Home Enviroment: No Family/Social History - Physician Review Nursing Documentation Reviewed: Yes Family/Social History: Unknown Family HX Smoking Status: Former Smoker Hx Alcohol Use: No Hx Substance Use: No Hx Substance Use Treatment: No Allergies/Home Meds Allergies/Adverse Reactions: Allergies No Known Allergies Allergy (Verified 07/10/17 09:29) Home Medications: Home Meds Medication Instructions Recorded Confirmed Tramadol HCl [Ultram] 50 mg PO Q8H PRN 02/21/17 07/10/17 Alprazolam 0.25 mg PO BID 04/10/17 07/10/17 Review of Systems - Physician Review All systems were reviewed & negative as marked: Yes - Review of Systems Constitutional: Normal Eyes: Normal ENT: Normal Respiratory: Cough. absent: SOB, Sputum, Wheezing Cardiovascular: Normal Gastrointestinal: Normal Genitourinary Female: Normal Musculoskeletal: Normal Skin: Normal Neurological: Normal Endocrine: Normal Hemo/Lymphatic: Normal Psychiatric: Normal Physical Exam Vital Signs Reviewed: Yes Vital Signs Temp Pulse Resp BP Pulse Ox 07/10/17 09:16 98.1 F 88 17 131/74 100 Temperature: Afebrile Blood Pressure: Normal Pulse: Regular Respiratory Rate: Normal Appearance: Positive for: Well-Appearing, Non-Toxic, Comfortable Pain Distress: None Mental Status: Positive for: Alert and Oriented X 3 - Systems Exam Head: Present: Atraumatic, Normocephalic Pupils: Present: PERRL Extroacular Muscles: Present: EOMI Conjunctiva: Present: Normal Mouth: Present: Moist Mucous Membranes Neck: Present: Normal Range of Motion Respiratory/Chest: Present: Clear to Auscultation, Good Air Exchange. No: Respiratory Distress, Accessory Muscle Use, Wheezes, Decreased Breath Sounds, Rales, Retracting, Rhonchi Cardiovascular: Present: Regular Rate and Rhythm, Normal S1, S2. No: Murmurs Abdomen: Present: Normal Bowel Sounds. No: Tenderness, Distention, Peritoneal Signs Back: Present: Normal Inspection Upper Extremity: Present: Normal Inspection. No: Cyanosis, Edema Lower Extremity: Present: Normal Inspection. No: Edema Neurological: Present: GCS=15, CN II-XII Intact, Speech Normal, Other (right sided weakness secondary to old CVA) Skin: Present: Warm, Dry, Normal Color. No: Rashes Psychiatric: Present: Alert, Oriented x 3, Normal Insight, Normal Concentration Medical Decision Making ED Course and Treatment: 07/10/17 10:42 42yo female who present for cough . Pt was comfortable in ED. No cough was noted. She was hemodynamiaclly stable. Left sided weakness secondary to old CVA was noted. She had no somatic complaints in ED. Lab was ordered and reviewed with no significant finding CXR NAD Pt noted that symptoms is probably secondary to cold air outside, hence she was not well dressed. This could be the cause of her symptoms. she will be DC home. Advised to dressed appropriate to the weather. - Lab Interpretations Lab Results: 07/10/17 10:00 07/10/17 10:00 Lab Results 07/10/17 10:00: Sodium 143, Potassium 3.6, Chloride 106, Carbon Dioxide 28, Anion Gap 13, BUN 8, Creatinine 0.5 L, Est GFR ( Amer) > 60, Est GFR (Non -Af Amer) > 60, Random Glucose 93, Calcium 9.7, Total Bilirubin 0.6, AST 23, ALT 27, Alkaline Phosphatase 82, Lactate Dehydrogenase 432, Total Creatine Kinase 88, Troponin I < 0.01, Total Protein 7.1, Albumin 4.3, Globulin 2.8, Albumin/Globulin Ratio 1.5 07/10/17 10:00: PT 13.1 H, INR 1.19 H, APTT 32.7 07/10/17 10:00: WBC 7.4, RBC 4.80, Hgb 11.7 L, Hct 37.2, MCV 77.5 L, MCH 24.4 L , MCHC 31.5, RDW 19.7 H, Plt Count 621 H, MPV 8.8, Gran % 55.8, Lymph % (Auto) 31.9, Harding % (Auto) 8.5 H, Eos % (Auto) 3.5, Baso % (Auto) 0.3, Gran # 4.16, Lymph # 2.4, Harding # 0.6, Eos # 0.3, Baso # 0.02 - RAD Interpretation Radiology Orders: 07/10/17 09:50 CHEST PORTABLE [RAD] Stat Disposition/Present on Arrival - Present on Arrival Any Indicators Present on Arrival: No History of DVT/PE: No History of Uncontrolled Diabetes: No Urinary Catheter: No History of Decub. Ulcer: No History Surgical Site Infection Following: None - Disposition Have Diagnosis and Disposition been Completed?: Yes Diagnosis: Cough Disposition: HOME/ ROUTINE Disposition Time: 11:15 Patient Plan: Discharge Patient Problems: Current Active Problems Problem Status Onset Cough Acute Condition: STABLE Discharge Instructions (ExitCare): Acute Cough (ED) Additional Instructions: Follow up with your doctor Return to ED for any new symptoms Referrals: Dallin Narvaez JD, MD [Primary Care Provider] - Follow up with primary Forms: [employer] ([place])
[2017-07-10 10:17] LABS: BASO # 0.02 K/mm3 (0.0-2.0); BASO % 0.3 % (0.0-3.0); EOS # 0.3 (0.0-0.7); EOS % 3.5 % (1.5-5.0); GRAN # 4.16 (1.4-6.5); GRAN % 55.8 % (50.0-68.0); HEMATOCRIT 37.2 % (36.0-48.0); LYMPH # 2.4 (1.2-3.4); LYMPH % 31.9 % (22.0-35.0); MEAN CELL VOLUME 77.5 fl (80.0-105.0); MEAN CORPUSCULAR HEMOGLOBIN 24.4 pg (25.0-35.0); MEAN CORPUSCULAR HGB CONC 31.5 g/dl (31.0-37.0); MEAN PLATELET VOLUME 8.8 fl (7.0-11.0); MONO # 0.6 (0.1-0.6); MONO % 8.5 % (1.0-6.0); RED CELL DISTRIBUTION WIDTH 19.7 % (11.5-14.5); WHITE BLOOD COUNT 7.4 10^3/ul (4.5-11.0)
[2017-07-10 10:33] LABS: ALB/GLOB RATIO 1.5 (1.1-1.8); ALKALINE PHOSPHATASE 82 U/L (38-126); ALT/SGPT 27 U/L (7-56); AST/SGOT 23 U/L (14-36); BILIRUBIN,TOTAL 0.6 mg/dL (0.2-1.3); BLOOD UREA NITROGEN 8 mg/dL (7-21); CALCIUM 9.7 mg/dL (8.4-10.5); CARBON DIOXIDE 28 mmol/L (21-33); CHLORIDE 106 mmol/L (98-107); GFR AFRICAN-AMERICAN > 60; GLUCOSE,RANDOM 93 mg/dL (70-110); SODIUM 143 mmol/L (132-148); TOTAL PROTEIN 7.1 g/dL (5.8-8.3)
[2017-07-10 10:34] LABS: POTASSIUM 3.6 mmol/L (3.6-5.0)
[2017-07-10 10:36] LABS: INR 1.19 (0.93-1.08); PARTIAL THROMBOPLASTIN TIME 32.7 Seconds (25.1-36.5)
[2017-07-10 10:45] LABS: TROPONIN I < 0.01 ng/mL
--- NOTE | 2017-07-10 11:20 | RAD ---
HISTORY: Cough COMPARISON: 04/10/2017. FINDINGS: LUNGS: The lungs are well inflated and clear. PLEURA: No significant pleural effusion identified, no pneumothorax apparent. CARDIOVASCULAR: Normal. OSSEOUS STRUCTURES: No significant abnormalities. VISUALIZED UPPER ABDOMEN: Normal. OTHER FINDINGS: None. IMPRESSION: No active pulmonary disease.
[2017-07-10 11:21] VITALS: BP 130/86; PULSE 82; RESP 19; TEMP 98.2
== END 2017-07-10 11:21 | disposition home or self-care (01) ==
LOC: ED 09:16
DX: R05 Cough (principal); I10 Essential (primary) hypertension; Z87.891 Personal history of nicotine dependence

== ENCOUNTER 2017-08-13 13:27 | Observation (INO) | payer OTHER ==
--- NOTE | 2017-08-13 14:07 | ED PDOC ---
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 Patient describes her pain as a non-radiating heavy sensation. She received 3 aspirin on route to emergency room and states her pain has improved since. Patient notes right arm and leg pain after mechanical fall 2 weeks ago. Patient denies any fever, chills, nausea, vomiting , abdominal pain, shortness of breath, cough, headache, dizziness or any other complaints. PMD: Dr. Dallin Narvaez Time/Duration: Other (08:00 this morning) Symptom Course: Improving Quality: Other Context: Home Past Medical History - Provider Review Nursing Documentation Reviewed: Yes - Infectious Disease Hx of Infectious Diseases: None - Tetanus Immunization Tetanus Immunization: Unknown - Cardiac Hx Cardiac Disorders: Yes Hx Hypertension: Yes - Pulmonary Hx Respiratory Disorders: No - Neurological HX Cerebrovascular Accident: Yes (right sided weakness) - HEENT Hx HEENT Disorder: No - Renal Hx Renal Disorder: No - Endocrine/Metabolic Hx Endocrine Disorders: No - Hematological/Oncological Hx Blood Transfusions: Yes - Integumentary Hx Dermatological Disorder: No - Musculoskeletal/Rheumatological Hx Arthritis: Yes - Gastrointestinal Hx Gastrointestinal Disorders: No - Genitourinary/Gynecological Hx Genitourinary Disorders: No - Psychiatric Hx Psychophysiologic Disorder: Yes Hx Anxiety: Yes Hx Bipolar Disorder: Yes Hx Depression: Yes Hx Substance Use: No - Surgical History Hx Cholecystectomy: Yes - Anesthesia Hx Anesthesia Reactions: No Hx Malignant Hyperthermia: No - Suicidal Assessment Feels Threatened In Home Enviroment: No Family/Social History - Physician Review Nursing Documentation Reviewed: Yes Family/Social History: No Known Family HX Smoking Status: Heavy Smoker > 10 Cigarettes Daily Hx Alcohol Use: No Hx Substance Use: No Hx Substance Use Treatment: No Allergies/Home Meds Allergies/Adverse Reactions: Allergies No Known Allergies Allergy (Verified 08/13/17 13:54) Home Medications: Home Meds Medication Instructions Recorded Confirmed Tramadol HCl [Ultram] 50 mg PO Q8H PRN 02/21/17 07/10/17 Alprazolam 0.25 mg PO BID 04/10/17 07/10/17 Review of Systems - Physician Review All systems were reviewed & negative as marked: Yes - Review of Systems Constitutional: absent: Fevers, Night Sweats Respiratory: absent: SOB, Cough Cardiovascular: Chest Pain Gastrointestinal: absent: Abdominal Pain, Nausea, Vomiting Musculoskeletal: Other (Right arm and leg pain) Neurological: absent: Headache, Dizziness Physical Exam Vital Signs Reviewed: Yes Vital Signs Temp Pulse Resp BP Pulse Ox 08/13/17 13:43 98.1 F 71 18 130/87 100 Temperature: Afebrile Blood Pressure: Normal Pulse: Regular Respiratory Rate: Normal Appearance: Positive for: Well-Appearing, Non-Toxic, Comfortable Pain Distress: None Mental Status: Positive for: Alert and Oriented X 3 - Systems Exam Head: Present: Atraumatic, Normocephalic Pupils: Present: PERRL Extroacular Muscles: Present: EOMI Conjunctiva: Present: Normal Mouth: Present: Moist Mucous Membranes Neck: Present: Normal Range of Motion Respiratory/Chest: Present: Clear to Auscultation, Good Air Exchange, Tender to Palpation (Tenderness to midsternal chest ). No: Respiratory Distress, Accessory Muscle Use Cardiovascular: Present: Regular Rate and Rhythm, Normal S1, S2. No: Murmurs Abdomen: Present: Normal Bowel Sounds. No: Tenderness, Distention, Peritoneal Signs Back: Present: Normal Inspection Upper Extremity: Present: NORMAL PULSES, Tenderness (to right shoulder), Other ( Right sided weakness, 0/5 in strength). No: Cyanosis, Edema, Swelling, Erythema , Temperature Abnormalties Lower Extremity: Present: NORMAL PULSES, Other (Right sided weakness, 1/5 in strength). No: Edema, CALF TENDERNESS, Tenderness, Swelling, Erythema, Deformity, Temperature Abnormalties Skin: Present: Warm, Dry, Normal Color. No: Rashes Psychiatric: Present: Alert, Oriented x 3, Normal Insight, Normal Concentration Medical Decision Making ED Course and Treatment: 08/13/17 13:58 Impression: A 42 year old female with midsternal chest pain. Patient also notes right arm and leg pain after fall. Differential Diagnosis included but are not limited to: Chest pain, rule out ACS vs. Musculoskeletal Plan: -- Right shoulder xray -- Right elbow xray -- EKG -- Labs -- Urinalysis -- Nitroglycerin -- Reassess and disposition Progress Notes: EKG shows NSR at 71 BPM with LVH. Interpreted by me. 08/13/17 15:42 Her pain resolved with 1 SL Nitro. Will appy Nitro paste and place on observation telemetry. Case discussed with Dr. Marcos who is covering for Dr. Emiliano Narvaez. Patient does not have a agriculture teacher so Dr. Marcos recommended Dr. Angel. - Lab Interpretations Lab Results: 08/13/17 14:24 08/13/17 14:24 Lab Results 08/13/17 14:24: Sodium 138, Potassium 4.2, Chloride 107, Carbon Dioxide 23, Anion Gap 13, BUN 13, Creatinine 0.6 L, Est GFR ( Amer) > 60, Est GFR ( Non-Af Amer) > 60, Random Glucose 90, Calcium 9.4, Magnesium 2.0, Total Bilirubin 0.5, AST 32, ALT 41, Alkaline Phosphatase 88, Lactate Dehydrogenase 394, Total Creatine Kinase 93, Troponin I < 0.01, Total Protein 7.7, Albumin 4.4 , Globulin 3.3, Albumin/Globulin Ratio 1.3 08/13/17 14:24: PT 11.9, INR 1.09 H, APTT 34.9 08/13/17 14:24: WBC 6.7, RBC 4.49, Hgb 11.0 L, Hct 35.3 L, MCV 78.6 L, MCH 24.5 L, MCHC 31.2, RDW 17.0 H, Plt Count 454 H, MPV 8.1, Gran % 56.1, Lymph % (Auto) 33.4, [place] % (Auto) 8.3 H, Eos % (Auto) 1.9, Baso % (Auto) 0.3, Gran # 3.76, Lymph # 2.2, [place] # 0.6, Eos # 0.1, Baso # 0.02 I have reviewed the lab results: Yes - RAD Interpretation Radiology Orders: 08/13/17 13:59 ELBOW RIGHT 3 VIEWS ROUTINE [RAD] Stat SHOULDER RIGHT [RAD] Stat 08/13/17 15:20 CXR [CHEST PORTABLE] [RAD] Stat - Medication Orders Current Medication Orders: Discontinued Medications Nitroglycerin (Nitrostat Sl Tab) 0.4 mg SL STAT STA Stop: 08/13/17 13:59 Last Admin: 08/13/17 14:28 Dose: 0.4 mg - Scribe Statement The provider has reviewed the documentation as recorded by the Diya Doherty Provider Kpibandra Attestation: All medical record entries made by the Scribe were at my direction and personally dictated by me. I have reviewed the chart and agree that the record accurately reflects my personal performance of the history, physical exam, medical decision making, and the department course for this patient. I have also personally directed, reviewed, and agree with the discharge instructions and disposition. Disposition/Present on Arrival - Present on Arrival Any Indicators Present on Arrival: No History of DVT/PE: No History of Uncontrolled Diabetes: No Urinary Catheter: No History of Decub. Ulcer: No History Surgical Site Infection Following: None - Disposition Have Diagnosis and Disposition been Completed?: Yes Diagnosis: Chest pain Disposition: HOSPITALIZED Disposition Time: 15:43 Patient Plan: Observation Condition: FAIR Discharge Instructions (ExitCare): Chest Pain (ED) Forms: [employer] (Ukrainian)
[2017-08-13 14:42] LABS: BASO # 0.02 K/mm3 (0.0-2.0); BASO % 0.3 % (0.0-3.0); EOS # 0.1 (0.0-0.7); EOS % 1.9 % (1.5-5.0); GRAN # 3.76 (1.4-6.5); GRAN % 56.1 % (50.0-68.0); HEMATOCRIT 35.3 % (36.0-48.0); LYMPH # 2.2 (1.2-3.4); LYMPH % 33.4 % (22.0-35.0); MEAN CELL VOLUME 78.6 fl (80.0-105.0); MEAN CORPUSCULAR HEMOGLOBIN 24.5 pg (25.0-35.0); MEAN CORPUSCULAR HGB CONC 31.2 g/dl (31.0-37.0); MEAN PLATELET VOLUME 8.1 fl (7.0-11.0); MONO # 0.6 (0.1-0.6); MONO % 8.3 % (1.0-6.0); WHITE BLOOD COUNT 6.7 10^3/ul (4.5-11.0)
[2017-08-13 14:48] LABS: ALB/GLOB RATIO 1.3 (1.1-1.8); ALKALINE PHOSPHATASE 88 U/L (38-126); ALT/SGPT 41 U/L (7-56); AST/SGOT 32 U/L (14-36); BILIRUBIN,TOTAL 0.5 mg/dL (0.2-1.3); BLOOD UREA NITROGEN 13 mg/dL (7-21); CALCIUM 9.4 mg/dL (8.4-10.5); CARBON DIOXIDE 23 mmol/L (21-33); CHLORIDE 107 mmol/L (98-107); GFR AFRICAN-AMERICAN > 60; GLUCOSE,RANDOM 90 mg/dL (70-110); POTASSIUM 4.2 mmol/L (3.6-5.0); SODIUM 138 mmol/L (132-148); TOTAL PROTEIN 7.7 g/dL (5.8-8.3)
[2017-08-13 14:52] LABS: INR 1.09 (0.93-1.08); PARTIAL THROMBOPLASTIN TIME 34.9 Seconds (25.1-36.5)
[2017-08-13 14:58] LABS: TROPONIN I < 0.01 ng/mL
--- NOTE | 2017-08-13 15:23 | RAD ---
PROCEDURE: Radiographs of the Right Shoulder HISTORY: fall r/o fx COMPARISON: No prior. FINDINGS: BONES: There is no acute displaced fracture or bone destruction. Bone alignment is normal. There is diffuse bone demineralization. JOINTS: Normal. Glenohumeral and acromioclavicular joints preserved. No osteoarthritis. SOFT TISSUES: Normal. OTHER FINDINGS: None. IMPRESSION: No acute fracture or dislocation.
--- NOTE | 2017-08-13 15:25 | RAD ---
PROCEDURE: Radiographs of the right elbow. HISTORY: fall r/o fx COMPARISON: No prior. FINDINGS: BONES: There is periarticular bone demineralization. No acute displaced fracture or bone destruction. JOINTS: Normal. No osteoarthritis. SOFT TISSUES: Normal. JOINT EFFUSION: None. OTHER FINDINGS: None. IMPRESSION: No acute fracture or dislocation.
[2017-08-13] MEDS ORDERED: Nitroglycerin 2% Ointment Foilpak UD TOP STA (15:44)
[2017-08-13 16:01] LABS: URINE BILIRUBIN NEGATIVE (NEGATIVE); URINE BLOOD TRACE-LYSED (NEGATIVE); URINE GLUCOSE (UA) NEGATIVE (NEGATIVE); URINE KETONE NEGATIVE (NEGATIVE); URINE LEUKOCYTE ESTERASE TRACE Leu/uL (NEGATIVE); URINE PROTEIN NEGATIVE mg/dL (<30 mg/dL); URINE UROBILINOGEN 0.2 E.U./dL (<1 E.U./dL)
[2017-08-13 16:04] LABS: URINE APPEARANCE CLEAR (CLEAR); URINE COLOR YELLOW (YELLOW)
--- NOTE | 2017-08-13 16:29 | RAD ---
HISTORY: chest pain COMPARISON: 07/10/2017 FINDINGS: LUNGS: No active pulmonary disease. PLEURA: No significant pleural effusion identified, no pneumothorax apparent. CARDIOVASCULAR: Normal. OSSEOUS STRUCTURES: No significant abnormalities. VISUALIZED UPPER ABDOMEN: Normal. OTHER FINDINGS: None. IMPRESSION: No active disease.
[2017-08-13 23:28] VITALS: BMI 25.0
[2017-08-13] MEDS ORDERED: Pneumococcal 23-Valent Vaccine IM ONE (23:28)
[2017-08-13] MEDS ORDERED: Influenza Vaccine 60 mcg/0.5 mL SYR (4YR UP) IM ONE (23:28)
[2017-08-14 06:11] VITALS: O2SAT 99
[2017-08-14 08:59] LABS: CHOLESTEROL 168 mg/dL (130-200)
[2017-08-14 09:11] LABS: TROPONIN I < 0.01 ng/mL
[2017-08-14 11:52] VITALS: BP 112/78; PULSE 80; RESP 18; TEMP 98.1
--- NOTE | 2017-08-14 17:42 | CARD ---
APPROVED REPORT EKG Measurement Heart [id number] <Conclusion> Normal sinus rhythm Voltage criteria for left ventricular hypertrophy Abnormal ECG
--- NOTE | 2017-08-14 17:49 | CARD ---
APPROVED REPORT EXAM: Two-dimensional and M-mode echocardiogram with Doppler and color Doppler. INDICATION Chest Pain 2D DIMENSIONS Left Atrium (2D)3.4 (1.6-4.0cm)IVSd0.9 (0.7-1.1cm) LVDd4.6 (3.9-5.9cm)PWd1.1 (0.7-1.1cm) LVDs3.0 (2.5-4.0cm)FS (%) 34.7 % LVEF (%)63.8 (>50%) M-Mode DIMENSIONS Aortic Root2.30 (2.2-3.7cm)Aortic Cusp Exc.1.80 (1.5-2.0cm) Aortic Valve AoV Peak Cdwimfms830.0cm/Caty Peak GR.6mmHg Mitral Valve MV E Jdkguyig96.0cm/sMV A Fllsyxow51.5cm/sE/A ratio1.1 TDI E/Lateral E'0.0E/Medial E'0.0 Tricuspid Valve TR Peak [id number]/sRAP [id number] Peak Gr.15mmHg [id number] LEFT VENTRICLE The left ventricle is normal size. There is normal left ventricular wall thickness. The left ventricular function is normal.EF-60-65% There is normal LV segmental wall motion. The left ventricular diastolic function is normal. No left ventricle thrombus noted on this study. There is no ventricular septal defect visualized. There is no left ventricular aneurysm. There is no mass noted in the left ventricle. RIGHT VENTRICLE The right ventricle is normal size. There is normal right ventricular wall thickness. The right ventricular systolic function is normal. ATRIA The left atrium size is normal. The right atrium size is normal. The interatrial septum is intact with no evidence for an atrial septal defect. AORTIC VALVE The aortic valve is thickened but opens well. No aortic regurgitation is present. There is no aortic valvular stenosis. There is no aortic valvular vegetation. MITRAL VALVE The mitral valve is thickened but opens well. Mitral annular calcification is mild. Mitral regurgitation is trace. There is no mitral valve stenosis. There is no evidence of mitral valve prolapse. TRICUSPID VALVE The tricuspid valve leaflets are thickened , but open well. There is trace to mild tricuspid regurgitation.[id number] There is no tricuspid valve stenosis. There is no tricuspid valve prolapse or vegetation. PULMONIC VALVE The pulmonic valve is not well visualized. GREAT VESSELS The aortic root is normal in size. The ascending aorta is normal in size. The pulmonary artery is normal. The IVC is normal in size and collapses >50% with inspiration. PERICARDIAL EFFUSION There is no pleural effusion. There is no pericardial effusion. <Conclusion> Normal chamber Size. EF-60-65% Mitral regurgitation is trace. There is trace to mild tricuspid regurgitation.[id number] There is no pericardial effusion.
--- NOTE | 2017-08-14 18:45 | CON ---
DATE: 08/14/2017 CONSULTATION SERVICE: Cardiology. REASON FOR CONSULTATION: Chest pain, epigastric pain with mild tenderness, cardiac evaluation, history of CVA, history of hypertension. BRIEF CLINICAL HISTORY: This is a 42-year-old female with a past medical history significant for 7-month with a residual right-sided weakness and slowing speech, hypertension, depression, anxiety disorder, came to the emergency room with complaint of midsternal chest pain, epigastric pain and nonradiating feel in the midsternum, which increases on taking a deep breath and on palpation. Denies any chest pain or dyspnea on exertion on walking. PAST MEDICAL HISTORY: Significant for hypertension, CVA with the right-sided weakness. SOCIAL HISTORY: Active tobacco abuse half-a-pack a day. Denies any history of alcohol abuse. CURRENT MEDICATIONS: The patient is at home taking tramadol, aspirin, and Xanax. REVIEW OF SYSTEMS: As per HPI. Complaint of right-sided weakness and walks with the cane; otherwise, no chest pain. PHYSICAL EXAMINATION: As follows: VITAL SIGNS: Temperature afebrile, heart rate 60, blood pressure 129/66. HEENT: PERRLA. Extraocular muscles intact. NECK: Supple. No carotid bruit or thyromegaly. CHEST: Clear to auscultation. HEART: S1 and S2 regular. ABDOMEN: Soft. EXTREMITIES: Clubbing and cyanosis negative. BLOOD WORKUP: As follows: WBC 6.7, hemoglobin 11, hematocrit 35.3, platelet count 457. Chemistry shows sodium 138, potassium 4.2, chloride 107, carbon dioxide 23, anion gap of 13, BUN 13, creatinine 0.6. Troponin 0.1. EKG showed normal sinus rate of 77, no acute ST-T changes noted. IMPRESSION: Atypical chest pain with tenderness in the epigastrium. History of hypertension. History of cerebrovascular accident with right-sided weakness. RECOMMENDATION: Given the multiple risk factors of coronary artery disease, suggest echo to see wall motion abnormality, liver function, add a second set of troponin and lipid profile, TSH. May consider a stress test as an outpatient for risk stratification because of the risk factor. We will follow with you. Thank you Dr. Narvaez for providing me the opportunity in taking care of the patient Hyun Walters. We will follow with you. Gabriel Hylton MD
--- NOTE | 2017-08-15 22:32 | DS ---
The patient is a 42-year-old female. I saw the patient on 08/14/2017 and I did H and P. The patient came with chest pain, saw by the network associate. Echocardiography done, reviewed by them and arranged a stress test as outpatient. The patient will follow up with Dr. Dallin Narvaez. For more detail, see my H and P of the same day. Angela Marcos MD
== END 2017-08-14 16:34 | disposition home or self-care (01) ==
LOC: ED 13:27 → ERH 15:40 → 3RSO 18:59
PROVIDERS: ADMIT Internal Medicine; ATTEND Internal Medicine
DX: R07.89 Other chest pain (principal); F31.9 Bipolar disorder, unspecified; I10 Essential (primary) hypertension; I69.351 Hemiplegia and hemiparesis following cerebral infarction affecting right dominant side; F17.210 Nicotine dependence, cigarettes, uncomplicated; Z90.49 Acquired absence of other specified parts of digestive tract; Z91.81 History of falling; M19.90 Unspecified osteoarthritis, unspecified site; F41.9 Anxiety disorder, unspecified

== ENCOUNTER 2017-11-07 13:43 | Emergency (ER) | payer OTHER ==
[2017-11-07 14:04] VITALS: BMI 20.5
--- NOTE | 2017-11-07 14:09 | ED PDOC ---
Arrival/HPI - General Chief Complaint: Lower Extremity Problem/Injury Time Seen by Provider: 11/07/17 13:56 Historian: Patient, Family (Brother) - History of Present Illness Time/Duration: Other (2 days) Symptom Onset: Gradual Symptom Course: Unchanged Quality: Aching Severity Level: Moderate Activities at Onset: Rest Associated Symptoms (Text): 11/07/17 14:06 Patient with history of CVA and old right sided weakness. She and her brother complaining of right calf pain since yesterday morning. Denies any injury or trauma. There is old speech deficit and right upper and right lower extremity weakness. She is able to answer yes no questions appropriately. She also complains that her shoulder on the right is lower than on the left for several months. No fever or chills. No chest pain palpitations or dyspnea. Past Medical History - Infectious Disease Hx of Infectious Diseases: None - Tetanus Immunization Tetanus Immunization: Unknown - Cardiac Hx Hypertension: Yes - Pulmonary Hx Respiratory Disorders: No - Neurological HX Cerebrovascular Accident: Yes (right sided weakness) - HEENT Hx HEENT Disorder: No - Renal Hx Renal Disorder: No - Endocrine/Metabolic Hx Endocrine Disorders: No - Hematological/Oncological Hx Blood Disorders: No - Integumentary Hx Dermatological Disorder: No - Musculoskeletal/Rheumatological Hx Arthritis: Yes - Gastrointestinal Hx Gastrointestinal Disorders: Yes (H/O GT PLACEMENT) Hx Gall Bladder Disease: Yes (CHOLECYSTECTOMY) Other/Comment: GI BLEED - Genitourinary/Gynecological Hx Genitourinary Disorders: No - Psychiatric Hx Psychophysiologic Disorder: Yes Hx Anxiety: Yes Hx Bipolar Disorder: Yes Hx Depression: Yes Hx Substance Use: No - Surgical History Hx Cholecystectomy: Yes - Anesthesia Hx Anesthesia Reactions: No Hx Malignant Hyperthermia: No - Suicidal Assessment Feels Threatened In Home Enviroment: No Family/Social History - Physician Review Nursing Documentation Reviewed: Yes Family/Social History: Unknown Family HX Smoking Status: Light Smoker < 10 Cigarettes Daily Hx Alcohol Use: Yes (H/O ETOH ABUSE) Hx Substance Use: No Hx Substance Use Treatment: No Allergies/Home Meds Allergies/Adverse Reactions: Allergies No Known Allergies Allergy (Verified 11/07/17 13:48) Home Medications: Home Meds Medication Instructions Recorded Confirmed Tramadol HCl [Ultram] 50 mg PO Q8H PRN 02/21/17 11/07/17 Alprazolam 0.25 mg PO BID 04/10/17 11/07/17 Review of Systems - Physician Review All systems were reviewed & negative as marked: Yes - Review of Systems Constitutional: absent: Fatigue, Fevers Respiratory: absent: SOB, Cough Cardiovascular: absent: Chest Pain, Palpitations, Syncope Gastrointestinal: absent: Abdominal Pain, Diarrhea, Nausea, Vomiting Musculoskeletal: Myalgias. absent: Arthralgias, Back Pain, Neck Pain, Joint Swelling Neurological: Other (Old focal weakness). absent: Headache, Dizziness Physical Exam Vital Signs Temp Pulse Resp BP Pulse Ox 11/07/17 15:44 71 18 136/75 98 11/07/17 13:43 97.9 F 69 18 156/80 H 98 Temperature: Afebrile Blood Pressure: Normal Pulse: Regular Respiratory Rate: Normal Appearance: Positive for: Well-Appearing, Non-Toxic, Comfortable, Uncomfortable Pain Distress: Mild Mental Status: Positive for: other (Awake alert and cooperative) - Systems Exam Head: Present: Atraumatic, Normocephalic Pupils: Present: PERRL Extroacular Muscles: Present: EOMI Conjunctiva: Present: Normal Mouth: Present: Moist Mucous Membranes Pharnyx: No: ERYTHEMA, EXUDATE, TONSILS ENLARGED Neck: Present: Normal Range of Motion Respiratory/Chest: Present: Clear to Auscultation, Good Air Exchange, Decreased Breath Sounds. No: Respiratory Distress, Accessory Muscle Use Cardiovascular: Present: Regular Rate and Rhythm, Normal S1, S2. No: Murmurs Abdomen: Present: Normal Bowel Sounds. No: Tenderness, Distention, Peritoneal Signs Upper Extremity: Present: Normal Inspection. No: Cyanosis, Edema Lower Extremity: Present: Normal Inspection, CALF TENDERNESS, NORMAL PULSES, Normal ROM, Tenderness, Neurovascularly Intact, Other (Right calf tenderness with no swelling and no skin changes). No: Edema, Cyanosis, Lance's Sign, Swelling, Erythema, Deformity, Temperature Abnormalties Neurological: Present: CN II-XII Intact, Other (Old speech disturbance and right -sided weakness). No: Speech Normal, Motor Func Grossly Intact Skin: Present: Warm, Dry, Normal Color. No: Rashes Medical Decision Making ED Course and Treatment: 11/07/17 15:29 Workup was unrevealing. Anemia at her usual level. Discharged home accompanied by family. Follow-up PMD. Follow-up in the ER as needed. - Lab Interpretations Lab Results: 11/07/17 14:25 11/07/17 14:25 Lab Results 11/07/17 14:25: PT 12.6 H, INR 1.10 H, APTT 29.4 11/07/17 14:25: WBC 5.8, RBC 4.61, Hgb 10.4 L, Hct 34.6 L, MCV 75.1 L D, MCH 22.6 L, MCHC 30.1 L, RDW 17.9 H, Plt Count 389, MPV 8.3, Gran % 54.7, Lymph % ( Auto) 34.8, [place] % (Auto) 8.1 H, Eos % (Auto) 1.9, Baso % (Auto) 0.5, Gran # 3.17, Lymph # (Auto) 2.0, [place] # (Auto) 0.5, Eos # (Auto) 0.1, Baso # (Auto) 0.03 11/07/17 14:25: Sodium 142, Potassium 3.6, Chloride 108 H, Carbon Dioxide 22, Anion Gap 16, BUN 11, Creatinine 0.6 L, Est GFR ( Amer) > 60, Est GFR ( Non-Af Amer) > 60, Random Glucose 113 H, Calcium 9.5, Magnesium 2.1, Total Bilirubin 0.4, AST 25, ALT 23, Alkaline Phosphatase 81, Total Creatine Kinase 127, Total Protein 7.3, Albumin 4.1, Globulin 3.2, Albumin/Globulin Ratio 1.3 - RAD Interpretation Radiology Orders: 11/07/17 14:04 DUPLEX LOWER EXTRM VEIN RIGHT [US] Stat Venous Doppler of the right lower extremity as read by the radiologist shows no DVT. Kick Plate Installer: Radiologist Disposition/Present on Arrival - Present on Arrival Any Indicators Present on Arrival: No History of DVT/PE: No History of Uncontrolled Diabetes: No Urinary Catheter: No History of Decub. Ulcer: No History Surgical Site Infection Following: None - Disposition Have Diagnosis and Disposition been Completed?: Yes Diagnosis: Leg pain, right Disposition: HOME/ ROUTINE Disposition Time: 15:30 Patient Plan: Discharge Condition: GOOD Discharge Instructions (ExitCare): Muscle and Bone Pain (DC), Lower Extremity Muscle Strain Additional Instructions: Ice and elevation. Follow-up with PMD. Follow-up in ER as needed. Prescriptions: Naproxen [Naprosyn] 500 mg PO BID #14 tab Referrals: Dallin Narvaez JD, MD [Primary Care Provider] - Follow up with primary Forms: [employer] ([place]erto Rican)
[2017-11-07 14:29] LABS: BASO # 0.03 K/mm3 (0.0-2.0); BASO % 0.5 % (0.0-3.0); EOS # 0.1 (0.0-0.7); EOS % 1.9 % (1.5-5.0); GRAN # 3.17 (1.4-6.5); GRAN % 54.7 % (50.0-68.0); HEMOGLOBIN 10.4 g/dL (12.0-16.0); LYMPH % 34.8 % (22.0-35.0); MEAN CELL VOLUME 75.1 fl (80.0-105.0); MEAN CORPUSCULAR HEMOGLOBIN 22.6 pg (25.0-35.0); MEAN CORPUSCULAR HGB CONC 30.1 g/dl (31.0-37.0); MEAN PLATELET VOLUME 8.3 fl (7.0-11.0); MONO # 0.5 (0.1-0.6); MONO % 8.1 % (1.0-6.0); RBC 4.61 10^6/uL (3.5-6.1); RED CELL DISTRIBUTION WIDTH 17.9 % (11.5-14.5); WHITE BLOOD COUNT 5.8 10^3/ul (4.5-11.0)
[2017-11-07 14:34] VITALS: RESP 18; TEMP 97.9; O2SAT 98
[2017-11-07 14:39] LABS: INR 1.1 (0.93-1.08); PARTIAL THROMBOPLASTIN TIME 29.4 Seconds (25.1-36.5); PROTHROMBIN TIME 12.6 SECONDS (9.4-12.5)
[2017-11-07 14:47] LABS: ALB/GLOB RATIO 1.3 (1.1-1.8); ALBUMIN 4.1 g/dL (3.0-4.8); ALT/SGPT 23 U/L (7-56); AST/SGOT 25 U/L (14-36); BLOOD UREA NITROGEN 11 mg/dL (7-21); CALCIUM 9.5 mg/dL (8.4-10.5); GFR AFRICAN-AMERICAN > 60; GFR NON-AFRICAN AMERICAN > 60; MAGNESIUM 2.1 mg/dL (1.7-2.2)
[2017-11-07 15:45] VITALS: BP 136/75; PULSE 71
--- NOTE | 2017-11-09 09:35 | US ---
PROCEDURE: Right lower extremity venous US HISTORY: Leg pain and swelling. Evaluate for DVT. PHYSICIAN(S): Lucio Rosenberg M.D. TECHNIQUE: Duplex sonography and color-flow Doppler with graded compression were used to evaluate the deep venous system of the right lower extremity. FINDINGS: The visualized deep venous system of the right lower extremity is sonographically normal and compressible. Normal waveforms and augmentation are seen. There is no sonographic evidence for deep venous thrombosis in the visualized segments of the right lower extremity. IMPRESSION: 1. No sonographic evidence for deep venous thrombosis in the visualized segments of the right lower extremity.
== END 2017-11-07 15:45 | disposition home or self-care (01) ==
LOC: ED 13:43
DX: M79.604 Pain in right leg (principal); I10 Essential (primary) hypertension; I69.951 Hemiplegia and hemiparesis following unspecified cerebrovascular disease affecting right dominant side; F17.210 Nicotine dependence, cigarettes, uncomplicated

== ENCOUNTER 2018-03-13 13:37 | Emergency (ER) | payer OTHER ==
[2018-03-13 13:46] VITALS: BMI 20.2
[2018-03-13] MEDS ORDERED: Sodium Chloride 0.9% 500 ML IV STA (13:48)
--- NOTE | 2018-03-13 13:54 | ED PDOC ---
Arrival/HPI - General Chief Complaint: Altered Mental Status Time Seen by Provider: 03/13/18 13:45 Historian: Patient, EMS EM Caveat: Altered Mental Status - History of Present Illness Narrative History of Present Illness (Text): 03/13/18 13:51 pt is a poor historian; pt arrived to the Emergency department via EMS, due to complaints of near syncope/dizziness/lightheadedness; pt was walking to the [facility] with her boyfriend at the time, just prior to Emergency department arrival, pt states she didnt feel well during her walk to the [facility], and [facility], pt felt worse/fatigue and felt like she was passing out; BF contacted 911 and found patient not verbalizing, and slumped on the floor; per EMS pt is awake, but moaning; pt denied any pain, NO nausea/vomiting noted; pt is here for further eval; pt's without other complaints. 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; hep c Time/Duration: Prior to Arrival Symptom Onset: Sudden Symptom Course: Unchanged Activities at Onset: Other (walking to [facility]) Context: Walking, Street Past Medical History - Provider Review Nursing Documentation Reviewed: Yes - Travel History Have you recently traveled outside [place] w/in the past 3 mons?: No - Past History Past History: Non-Contributing - Infectious Disease Hx of Infectious Diseases: None - Tetanus Immunization Tetanus Immunization: Unknown - Reproductive Menopause: No Currently : Unknown - Cardiac Hx Hypertension: Yes - Pulmonary Hx Respiratory Disorders: No - Neurological HX Cerebrovascular Accident: Yes (right sided weakness) - HEENT Hx HEENT Disorder: No - Renal Hx Renal Disorder: No - Endocrine/Metabolic Hx Endocrine Disorders: No - Hematological/Oncological Hx Blood Disorders: No - Integumentary Hx Dermatological Disorder: No - Musculoskeletal/Rheumatological Hx Arthritis: Yes - Gastrointestinal Hx Gastrointestinal Disorders: Yes (H/O GT PLACEMENT) Hx Gall Bladder Disease: Yes (CHOLECYSTECTOMY) Other/Comment: GI BLEED - Genitourinary/Gynecological Hx Genitourinary Disorders: No - Psychiatric Hx Psychophysiologic Disorder: Yes Hx Anxiety: Yes Hx Bipolar Disorder: Yes Hx Depression: Yes Hx Substance Use: No - Surgical History Hx Cholecystectomy: Yes - Anesthesia Hx Anesthesia Reactions: No Hx Malignant Hyperthermia: No - Suicidal Assessment Feels Threatened In Home Enviroment: No Family/Social History - Physician Review Nursing Documentation Reviewed: Yes Family/Social History: No Known Family HX Smoking Status: Light Smoker < 10 Cigarettes Daily Hx Alcohol Use: Yes (H/O ETOH ABUSE) Hx Substance Use: No Hx Substance Use Treatment: No Allergies/Home Meds Allergies/Adverse Reactions: Allergies No Known Allergies Allergy (Verified 11/07/17 13:48) Home Medications: Home Meds Medication Instructions Recorded Confirmed Tramadol HCl [Ultram] 50 mg PO Q8H PRN 02/21/17 03/13/18 Alprazolam 0.25 mg PO BID 04/10/17 03/13/18 Review of Systems - Review of Systems Constitutional: Fatigue Eyes: Normal ENT: Normal Respiratory: absent: SOB Cardiovascular: absent: Chest Pain Gastrointestinal: Normal. absent: Abdominal Pain, Nausea, Vomiting Genitourinary Female: Normal Musculoskeletal: Normal Skin: Normal Neurological: Dizziness, Other (near syncope) Endocrine: Normal Hemo/Lymphatic: Normal Psychiatric: Normal Physical Exam - Physical Exam Narrative Physical Exam (Text): 03/13/18 1350 General: alert/awake, GCS = 14, oriented x 1 (no to place/time/date), resting in bed, uncomfortable, cooperative, interactive; shaking her head in some distress, not to pain Head: NC/AT; mild bi-temporal wasting EYE: PERRLA, EOMI, sclera faintly icteric, no nystagmus, no photophobia; visual field intact b/l Facial: WNL Oral: uvula/tongue are midline, no exudate/lesions, no drooling/stridor, no dysphonia; fair dentitions; mild dry oral mucosa NECK: intact ROM, no midline tenderness, no nuchal rigidity, no meningeal signs ; no step off Chest: CTA b/l, no w/r/r; no tachypenia, no accessory muscle use noted Cardiac: +S1, +S2, no m/r/r, no tachycardia Abdominal: +BS, soft/nd/nt, well nourished patient; no masses/rebound/guarding/ rigidity; no williamson's sign, no mcburney's point tenderness Extremities: decr ROM to right arm/leg due to prior CVA (weakness), intact ROM to left arm/leg; strength 4+/5 to right arm/leg, strength 5/5 grossly intact to left upper/lower limbs, neurovasc intact b/l; + right leg with leg brace is noted BACK: no step off, no midline tenderness, NO crepitus, no gross deformities noted; Intact ROM SKIN: cap refill ~ 1 sec, no ulcerations, no petechiae, no rashes; slight pallor is noted NEURO: CNII-XII WNL, no facial asymmetries, no slurr speech, oriented x 1; pt is not verbal at the moment, + whispers and shakes her head yes as well as no Psych: poor affect; follows command Vital Signs Reviewed: Yes Vital Signs Temp Pulse Resp BP Pulse Ox 03/13/18 13:45 97.7 F 60 24 138/74 100 Temperature: Afebrile Blood Pressure: Normal Pulse: Regular Respiratory Rate: Normal Appearance: Positive for: Well-Appearing, Uncomfortable. No: Non-Toxic, Ill- Appearing Pain Distress: None - Systems Exam Head: Present: Atraumatic, Normocephalic Medical Decision Making ED Course and Treatment: 03/13/18 13:45 Impression: AMS, weakness/fatigue/near syncope i have consider all the differential diagnosis regarding pt's chief medical complaints/clinical findings, including but are not limited to: AMS, near syncope, weakness/fatigue A/P: Weakness, AMS - labs - cultures - xray - ct head - IV - supportive care - observe/reevaluation 03/13/18 14:09 Pt is now much more awake and alert pt is not in any distress pt verified initial complaint that she felt very dizzy/lightheaded and felt like she was going to pass out while walking [facility] the [employer]; pt states she was very hot and didnt felt well; pt did not pass out; pt's BF asked her if she wants EMS to be called and she said yes, 911 responded and arrived and brought patient to the Emergency department pt is awake, alert, Oriented x 3 pt with residual weakness to right arm/leg (unchanged) pt states no villarreal, no cp/sob/palpitations, no abd pain, no new slurr speech/villarreal pt states she had a [employer] [facility] pt denied any bleeding NIH stroke scale ~ 2 (chronic) 1505 pt is pending further lab/xray/ct results; pt is unable to provide urine sample currently 03/13/18 15:[address] Narvaez, made aware of pt's medical complaints and Emergency department mg/txt/dx, agrees with Emergency department recommendation for admission, Dr Narvaez would like the hospitalists to admit since he will be away; Dr Narvaez is aware that pt may leave against medical advice and will f/u with patient as outpt if she chooses to do so due to pt's abnl h/h results and symptoms of anemia (near syncope/weakness, near fainting today), i recommended pt for admission 1600 pt remained comfortable and at baseline mental status pt is not in any distress pt's signifcant other is now at bedside, made aware of pt's medical results and made aware of my recommendation to admit patient pt has now decided that she does not want to stay and wants to leave Leaving Against Medical Advice (AMA): The patient is choosing to leave against medical advice. I have personally explained to the patient that choosing to do so may result in permanent bodily harm or . I have discussed at great length that without further evaluation and monitoring there may be unforeseen circumstances and/or deterioration causing permanent bodily harm or as a result of their choice. The patient is alert, oriented, and shows the mental capacity to make clear decisions regarding the patients health care at this time. The patient continues to wish to leave against medical advice. In light of the patients decision to leave against medical advice, follow-up has been arranged and the patient is aware of the importance to following up as instructed. The patient has been advised that they should return to the emergency room immediately if they change their mind at any time, or if their condition begins to change or worsen in any way. she is aware that potential life-threatening illness remains and pt can lose limb/or worse case, can pt is aware that she is to see Her doctor as soon as possible pt is aware that if she changes her mind, she is encouraged to return to ED immediately for further care/management pt expressed understanding Re-evaluation Time: 15:55 Reassessment Condition: Improved - Lab Interpretations Lab Results: 03/13/18 13:50 03/13/18 13:50 Lab Results 03/13/18 15:37: Blood Type Pending, Antibody Screen Pending, BBK History Checked Patient has bt 03/13/18 15:37: Urine Color Yellow, Urine Appearance Sl cloudy, Urine pH 6.5, Ur Specific [place] 1.025, Urine Protein 30 H, Urine Glucose (UA) Negative, Urine Ketones Negative, Urine Blood Trace-intact H, Urine Nitrate Negative, Urine Bilirubin Negative, Urine Urobilinogen 0.2, Ur Leukocyte Esterase Negative , Urine RBC 1 - 3, Urine WBC 5 - 10, Ur Epithelial Cells Many, Urine Bacteria Mod 03/13/18 13:50: Ammonia 9 03/13/18 13:50: Salicylates < 1 L, Acetaminophen < 10.0 L 03/13/18 13:50: TSH 3rd Generation 0.48, Alcohol, Quantitative < 10 03/13/18 13:50: Sodium 140, Potassium 3.5 L, Chloride 105, Carbon Dioxide 25, Anion Gap 14, BUN 10, Creatinine 0.6 L, Est GFR ( Amer) > 60, Est GFR ( Non-Af Amer) > 60, Random Glucose 104, Calcium 8.9, Phosphorus 3.2, Magnesium 1.9, Total Bilirubin 0.2, AST 31, ALT 20, Alkaline Phosphatase 78, Lactate Dehydrogenase 311 L, Total Creatine Kinase 72, Troponin I < 0.01, Total Protein 7.2, Albumin 4.1, Globulin 3.1, Albumin/Globulin Ratio 1.3 03/13/18 13:50: PT 12.7 H, INR 1.10 H, APTT 27.1 03/13/18 13:50: WBC 7.9 D, RBC 4.04, Hgb 8.1 L D, Hct 27.7 L, MCV 68.6 L D, MCH 20.0 L, MCHC 29.2 L, RDW 18.6 H, Plt Count 561 H, MPV 8.0, Gran % 42.1 L, Lymph % (Auto) 47.7 H, [place] % (Auto) 8.4 H, Eos % (Auto) 1.4 L, Baso % (Auto) 0.4, Gran # 3.33, Lymph # (Auto) 3.8 H, [place] # (Auto) 0.7 H, Eos # (Auto) 0.1, Baso # (Auto) 0.03 I have reviewed the lab results: Yes Interpretation: Abnormal lab values (abnl H/H (changes compare with old ekg)) - RAD Interpretation Narrative RAD Interpretations (Text): 03/13/18 15:58 HISTORY: AMS COMPARISON: 08/13/2017 FINDINGS: LUNGS: No active pulmonary disease. PLEURA: No significant pleural effusion identified, no pneumothorax apparent. CARDIOVASCULAR: Normal. OSSEOUS STRUCTURES: No significant abnormalities. VISUALIZED UPPER ABDOMEN: Normal. OTHER FINDINGS: None. IMPRESSION: No active disease. No significant interval change compared to the prior examination(s). This report is currently processing and HAS NOT BEEN OFFICIALLY SIGNED BY THE PHYSICIAN - ESTIMATED TIME OF APPROVAL IS 03/13/2018 16:32. PROCEDURE: CT HEAD WITHOUT CONTRAST. HISTORY: Altered mental status. History of right CVA COMPARISON: 04/10/2017 CT head. 08/10/2017 MRI brain TECHNIQUE: Axial computed tomography images were obtained through the head/brain without intravenous contrast. Coronal and sagittal reconstructed images. Radiation dose: Total exam DLP = 779.29 mGy-cm. This CT exam was performed using one or more of the following dose reduction techniques: Automated exposure control, adjustment of the mA and/or kV according to patient size, and/or use of iterative reconstruction technique. FINDINGS: HEMORRHAGE: No intracranial hemorrhage. BRAIN: No mass effect or edema. Atrophy left hemisphere, watershed distribution left frontal parietal region unchanged. VENTRICLES: Unremarkable. No hydrocephalus. CALVARIUM: Unremarkable. PARANASAL SINUSES: Unremarkable as visualized. No significant inflammatory changes. MASTOID AIR CELLS: Unremarkable as visualized. No inflammatory changes. OTHER FINDINGS: None. IMPRESSION: No acute intracranial abnormalities. No significant findings to account for the clinical presentation. No significant interval change compared to the prior examination(s). Radiology Orders: 03/13/18 13:46 HEAD W/O CONTRAST [CT] Stat 03/13/18 13:47 CHEST PORTABLE [RAD] Stat Cable Splicer Apprentice: Radiologist - EKG Interpretation EKG Interpretation (Text): 03/13/18 13:59 Sinus deo at 55 bpm, normal axis, no ectopy, no st-t changes, NORMAL EKG; unchanged compare with old ekg 07/2017 Interpreted by ED Physician: Yes Type: 12 lead EKG Comparison: Similar to previous EKG - Medication Orders Current Medication Orders: Discontinued Medications Sodium Chloride (Sodium Chloride 0.9%) 500 mls @ 999 mls/hr IV .Q31M STA Stop: 03/13/18 14:18 Last Admin: 03/13/18 14:09 Dose: 999 mls/hr eMAR Start Stop Document 03/13/18 14:09 EWO (Rec: 03/13/18 14:09 EWO [id number]) Intravenous Solution Start Date 03/13/18 Start Time 14:09 End Date 03/13/18 End time 14:39 Total Infusion Time 30 Potassium Chloride (K-Dur 20 Meq Er Tab) 40 meq PO STAT STA Stop: 03/13/18 14:52 Last Admin: 03/13/18 15:21 Dose: 40 meq Disposition/Present on Arrival - Present on Arrival Any Indicators Present on Arrival: No History of DVT/PE: No History of Uncontrolled Diabetes: No Urinary Catheter: No History of Decub. Ulcer: No History Surgical Site Infection Following: None - Disposition Have Diagnosis and Disposition been Completed?: Yes Diagnosis: Anemia, Near syncope, Weakness, Hypokalemia Disposition: AGAINST MEDICAL ADVICE Disposition Time: 16:24 Condition: STABLE Discharge Instructions (ExitCare): Weakness (ED), Hypokalemia, Fatigue, Anemia Caused by Low Iron, Adult (DC) Print Language: IRISH Additional Instructions: you are leaving against medical advice potential life-threatening illness remains and pt can lose limb/or worse case, can you are to see your doctor as soon as possible if you change your mind, you are encouraged to return to ED immediately for further care/management Referrals: Dallin Narvaez JD, MD [Family Provider] - Follow up with primary Forms: [employer] (Yoruba)
[2018-03-13 14:24] LABS: BASO # 0.03 K/mm3 (0.0-2.0); BASO % 0.4 % (0.0-3.0); EOS # 0.1 (0.0-0.7); EOS % 1.4 % (1.5-5.0); GRAN # 3.33 (1.4-6.5); GRAN % 42.1 % (50.0-68.0); HEMOGLOBIN 8.1 g/dL (12.0-16.0); LYMPH # 3.8 (1.2-3.4); LYMPH % 47.7 % (22.0-35.0); MEAN CELL VOLUME 68.6 fl (80.0-105.0); MEAN CORPUSCULAR HGB CONC 29.2 g/dl (31.0-37.0); MONO # 0.7 (0.1-0.6); MONO % 8.4 % (1.0-6.0); RBC 4.04 10^6/uL (3.5-6.1); RED CELL DISTRIBUTION WIDTH 18.6 % (11.5-14.5); WHITE BLOOD COUNT 7.9 10^3/ul (4.5-11.0)
[2018-03-13 14:28] LABS: INR 1.1 (0.93-1.08); PARTIAL THROMBOPLASTIN TIME 27.1 Seconds (25.1-36.5); PROTHROMBIN TIME 12.7 SECONDS (9.4-12.5)
[2018-03-13 14:29] LABS: ACETAMINOPHEN < 10.0 ug/ml (10.0-20.0); SALICYLATE < 1 mg/dL (2.0-20.0)
[2018-03-13 14:35] LABS: ALB/GLOB RATIO 1.3 (1.1-1.8); ALBUMIN 4.1 g/dL (3.0-4.8); ALT/SGPT 20 U/L (7-56); AST/SGOT 31 U/L (14-36); BLOOD UREA NITROGEN 10 mg/dL (7-21); CALCIUM 8.9 mg/dL (8.4-10.5); GFR AFRICAN-AMERICAN > 60; GFR NON-AFRICAN AMERICAN > 60
[2018-03-13 14:41] LABS: TROPONIN I < 0.01 ng/mL
[2018-03-13] MEDS ORDERED: Potassium Chloride 20 mEq ER Tab PO STA (14:51)
--- NOTE | 2018-03-13 15:46 | RAD ---
HISTORY: AMS COMPARISON: 08/13/2017 FINDINGS: LUNGS: No active pulmonary disease. PLEURA: No significant pleural effusion identified, no pneumothorax apparent. CARDIOVASCULAR: Normal. OSSEOUS STRUCTURES: No significant abnormalities. VISUALIZED UPPER ABDOMEN: Normal. OTHER FINDINGS: None. IMPRESSION: No active disease. No significant interval change compared to the prior examination(s).
[2018-03-13 15:52] LABS: PH,URINE 6.5 (4.7-8.0); URINE BILIRUBIN NEGATIVE (NEGATIVE); URINE BLOOD TRACE-INTACT (NEGATIVE); URINE GLUCOSE (UA) NEGATIVE (NEGATIVE); URINE LEUKOCYTE ESTERASE NEGATIVE Leu/uL (NEGATIVE); URINE PROTEIN 30 mg/dL (<30 mg/dL); URINE UROBILINOGEN 0.2 E.U./dL (<1 E.U./dL)
[2018-03-13 16:00] LABS: URINE COLOR YELLOW (YELLOW)
[2018-03-13 16:02] LABS: URINE APPEARANCE SL CLOUDY (CLEAR); URINE BACTERIA MOD (NEG); URINE EPITHELIAL CELLS MANY /hpf (0-5)
[2018-03-13 16:24] LABS: BENZODIAZEPINES, UR NEGATIVE (NEGATIVE)
--- NOTE | 2018-03-13 16:28 | CT ---
PROCEDURE: CT HEAD WITHOUT CONTRAST. HISTORY: Altered mental status. History of right CVA COMPARISON: 04/10/2017 CT head. 08/10/2017 MRI brain TECHNIQUE: Axial computed tomography images were obtained through the head/brain without intravenous contrast. Coronal and sagittal reconstructed images. Radiation dose: Total exam DLP = 779.29 mGy-cm. This CT exam was performed using one or more of the following dose reduction techniques: Automated exposure control, adjustment of the mA and/or kV according to patient size, and/or use of iterative reconstruction technique. FINDINGS: HEMORRHAGE: No intracranial hemorrhage. BRAIN: No mass effect or edema. Atrophy left hemisphere, watershed distribution left frontal parietal region unchanged. VENTRICLES: Unremarkable. No hydrocephalus. CALVARIUM: Unremarkable. PARANASAL SINUSES: Unremarkable as visualized. No significant inflammatory changes. MASTOID AIR CELLS: Unremarkable as visualized. No inflammatory changes. OTHER FINDINGS: None. IMPRESSION: No acute intracranial abnormalities. No significant findings to account for the clinical presentation. No significant interval change compared to the prior examination(s).
[2018-03-13 16:36] VITALS: PULSE 88; TEMP 98.6; O2SAT 99
[2018-03-13 16:37] VITALS: BP 123/79; RESP 20
[2018-03-13 16:43] LABS: BARBITURATES, UR NEGATIVE (NEGATIVE); OPIATES, UR NEGATIVE (NEGATIVE); PHENCYCLIDINE, UR NEGATIVE (NEGATIVE)
--- NOTE | 2018-03-13 22:43 | CARD ---
APPROVED REPORT EKG Measurement Heart [id number] <Conclusion> Sinus bradycardia Voltage criteria for left ventricular hypertrophy Abnormal ECG
== END 2018-03-13 16:36 | disposition left against medical advice (07) ==
LOC: ED 13:37
DX: E87.6 Hypokalemia (principal); D64.9 Anemia, unspecified; R53.1 Weakness; R55 Syncope and collapse; F17.210 Nicotine dependence, cigarettes, uncomplicated; I10 Essential (primary) hypertension
CPT/HCPCS: 70450; 71045; 80053; 80320; 80324; 80329; 80345; 80346; 80349; 80353; 80358; 80361; 81001; 82140; 82550; 83615; 83735; 83992; 84100; 84443; 84484; 85025; 85610; 85730; 86850; 86900; 87040; 87086; 93005; 99285; J7040

== ENCOUNTER 2018-03-17 13:01 | Inpatient (IN) | payer OTHER ==
[2018-03-17 13:17] VITALS: BMI 20.5
--- NOTE | 2018-03-17 13:48 | ED PDOC ---
Arrival/HPI - General Chief Complaint: Weakness/Neurological Deficit Time Seen by Provider: 03/17/18 13:20 Historian: Patient, Partner - History of Present Illness Narrative History of Present Illness (Text): 03/17/18 13:44 Patient is a 43 year old female whose past medical history includes anemia, and CVA, who presents to the Emergency department complaining of generalized weakness. Patient's partner reports that she has been sleeping frequently throughout the week. She reports that her physician instructed her to present to the Emergency department if she feels weak. Patient was last here 4 days ago due to a syncopal event, and at that time had a rectal exam which she states was normal. At that time it was recommended that patient be admitted but she declined and signed an AMA. She believes that her stool has been brown not black. Patient denies fevers, chills, chest pain, shortness of breath, dyspnea on exertion, cough, abdominal pain, nausea, vomiting, diarrhea, back pain, neck pain, headache, dizziness, or any other complaint. Of note she has right sided issues secondary to past CVA. Time/Duration: 1 week Symptom Onset: Sudden Symptom Course: Unchanged Context: Home Past Medical History - Provider Review Nursing Documentation Reviewed: Yes - Past History Past History: Non-Contributing - Infectious Disease Hx of Infectious Diseases: None - Tetanus Immunization Tetanus Immunization: Unknown - Reproductive Menopause: No - Cardiac Hx Hypertension: Yes - Pulmonary Hx Respiratory Disorders: No - Neurological HX Cerebrovascular Accident: Yes (right sided weakness) - HEENT Hx HEENT Disorder: No - Renal Hx Renal Disorder: No - Endocrine/Metabolic Hx Endocrine Disorders: No - Hematological/Oncological Hx Blood Disorders: No - Integumentary Hx Dermatological Disorder: No - Musculoskeletal/Rheumatological Hx Arthritis: Yes - Gastrointestinal Hx Gastrointestinal Disorders: Yes (H/O GT PLACEMENT) Hx Gall Bladder Disease: Yes (CHOLECYSTECTOMY) Other/Comment: GI BLEED - Genitourinary/Gynecological Hx Genitourinary Disorders: No - Psychiatric Hx Psychophysiologic Disorder: Yes Hx Anxiety: Yes Hx Bipolar Disorder: Yes Hx Depression: Yes Hx Substance Use: No - Surgical History Hx Cholecystectomy: Yes - Anesthesia Hx Anesthesia Reactions: No Hx Malignant Hyperthermia: No - Suicidal Assessment Feels Threatened In Home Enviroment: No Family/Social History - Physician Review Nursing Documentation Reviewed: Yes Family/Social History: No Known Family HX Smoking Status: Light Smoker < 10 Cigarettes Daily Hx Alcohol Use: Yes (H/O ETOH ABUSE) Hx Substance Use: No Hx Substance Use Treatment: No Allergies/Home Meds Allergies/Adverse Reactions: Allergies No Known Allergies Allergy (Verified 11/07/17 13:48) Home Medications: Home Meds Medication Instructions Recorded Confirmed Tramadol HCl [Ultram] 50 mg PO Q8H PRN 02/21/17 03/13/18 Alprazolam 0.25 mg PO BID 04/10/17 03/13/18 Review of Systems - Physician Review All systems were reviewed & negative as marked: Yes - Review of Systems Constitutional: absent: Fevers Gastrointestinal: absent: Stool Changes Physical Exam - Physical Exam Narrative Physical Exam (Text): 03/17/18 13:49 Constitutional: No acute distress. Head: Normocephalic. Atraumatic. Eyes: PERRL. ENT: Moist mucous membranes. Neck: Supple. Cardiovascular: Regular rate. Chest: No tenderness. Respiratory: Clear to auscultation bilaterally. GI: Soft. Nontender. Nondistended. Back: No CVA tenderness. Musculoskeletal: No tenderness or swelling of extremities. Skin: No rash. Neurologic: Alert, R sided weakness. Vital Signs Temp Pulse Resp Pulse Ox 03/17/18 13:13 98.6 F 81 20 99 Medical Decision Making ED Course and Treatment: 03/17/18 13:49 Impression: Patient is a 43 year old female who presents to the Emergency department complaining of generalized weakness for the past week. Differential Diagnosis included but are not limited to: Anemia Plan: --Labs --chest X-ray --urinalysis and HCG -- Reassess and disposition Prior Visits: Notes and results from previous visits were reviewed. Patient was last seen in the emergency department on 03/13/18 and was diagnosed with anemia, near syncope, weakness, and hypokalemia. Admission was recommended but patient declined and signed an AMA. Progress Notes: 03/17/18 13:52 EKG shows NSR at [address]/T wave changes. Interpreted by me. 03/17/18 15:36 Discussed case with who is covering for , and who recommends admission to hospitalist. Discussed case with (hospitalist), who is aware of and accepts patient to hospitalist service. Chest X-ray No acute disease. - Lab Interpretations Lab Results: 03/17/18 14:00 03/17/18 14:00 Lab Results 03/17/18 14:00: Blood Type A POSITIVE, Antibody Screen Negative, Crossmatch See Detail, BBK History Checked Patient has bt 03/17/18 14:00: WBC 5.8 D, RBC 4.16, Hgb 8.1 L, Hct 27.9 L, MCV 67.1 L, MCH 19.5 L, MCHC 29.0 L, RDW 18.3 H, Plt Count 507 H, MPV 8.0, Gran % 53.8, Lymph % (Auto) 35.9 H, [place] % (Auto) 7.9 H, Eos % (Auto) 1.9, Baso % (Auto) 0.5, Gran # 3.11, Lymph # (Auto) 2.1, [place] # (Auto) 0.5, Eos # (Auto) 0.1, Baso # (Auto) 0.03 03/17/18 14:00: Sodium 139, Potassium 3.5 L, Chloride 107, Carbon Dioxide 23, Anion Gap 13, BUN 7, Creatinine 0.6 L, Est GFR ( Amer) > 60, Est GFR (Non -Af Amer) > 60, Random Glucose 88, Calcium 8.9, Total Bilirubin 0.3, AST 21, ALT 13, Alkaline Phosphatase 82, Total Protein 6.8, Albumin 3.9, Globulin 2.9, Albumin/Globulin Ratio 1.3 03/17/18 13:50: Urine Color Yellow, Urine Appearance Clear, Urine pH 8.0, Ur Specific [place] 1.015, Urine Protein Negative, Urine Glucose (UA) Negative, Urine Ketones Negative, Urine Blood Negative, Urine Nitrate Negative, Urine Bilirubin Negative, Urine Urobilinogen 0.2, Ur Leukocyte Esterase Negative, Urine HCG, Qual Negative I have reviewed the lab results: Yes - RAD Interpretation Radiology Orders: 03/17/18 13:40 CHEST PORTABLE [RAD] Stat - EKG Interpretation Interpreted by ED Physician: Yes Type: 12 lead EKG - Scribe Statement The provider has reviewed the documentation as recorded by the Kpibandra Duran Provider Scribe Attestation: All medical record entries made by the Scribe were at my direction and personally dictated by me. I have reviewed the chart and agree that the record accurately reflects my personal performance of the history, physical exam, medical decision making, and the department course for this patient. I have also personally directed, reviewed, and agree with the discharge instructions and disposition. Disposition/Present on Arrival - Present on Arrival Any Indicators Present on Arrival: No History of DVT/PE: No History of Uncontrolled Diabetes: No Urinary Catheter: No History of Decub. Ulcer: No History Surgical Site Infection Following: None - Disposition Have Diagnosis and Disposition been Completed?: Yes Diagnosis: Symptomatic anemia Disposition: HOSPITALIZED Disposition Time: 14:47 Patient Plan: Admission Condition: FAIR
[2018-03-17 14:20] LABS: BASO # 0.03 K/mm3 (0.0-2.0); BASO % 0.5 % (0.0-3.0); EOS # 0.1 (0.0-0.7); EOS % 1.9 % (1.5-5.0); GRAN # 3.11 (1.4-6.5); GRAN % 53.8 % (50.0-68.0); HEMOGLOBIN 8.1 g/dL (12.0-16.0); LYMPH # 2.1 (1.2-3.4); LYMPH % 35.9 % (22.0-35.0); MEAN CELL VOLUME 67.1 fl (80.0-105.0); MEAN CORPUSCULAR HEMOGLOBIN 19.5 pg (25.0-35.0); MONO # 0.5 (0.1-0.6); MONO % 7.9 % (1.0-6.0); RBC 4.16 10^6/uL (3.5-6.1); RED CELL DISTRIBUTION WIDTH 18.3 % (11.5-14.5); WHITE BLOOD COUNT 5.8 10^3/ul (4.5-11.0)
[2018-03-17 14:42] LABS: ALB/GLOB RATIO 1.3 (1.1-1.8); ALBUMIN 3.9 g/dL (3.0-4.8); ALT/SGPT 13 U/L (7-56); AST/SGOT 21 U/L (14-36); BLOOD UREA NITROGEN 7 mg/dL (7-21); CALCIUM 8.9 mg/dL (8.4-10.5); GFR AFRICAN-AMERICAN > 60; GFR NON-AFRICAN AMERICAN > 60
[2018-03-17 15:26] LABS: URINE APPEARANCE CLEAR (CLEAR); URINE BILIRUBIN NEGATIVE (NEGATIVE); URINE BLOOD NEGATIVE (NEGATIVE); URINE COLOR YELLOW (YELLOW); URINE GLUCOSE (UA) NEGATIVE (NEGATIVE); URINE LEUKOCYTE ESTERASE NEGATIVE Leu/uL (NEGATIVE); URINE PROTEIN NEGATIVE mg/dL (<30 mg/dL); URINE UROBILINOGEN 0.2 E.U./dL (<1 E.U./dL)
[2018-03-17 15:27] LABS: HCG,QUALITATIVE URINE NEGATIVE (NEGATIVE)
--- NOTE | 2018-03-17 16:06 | RAD ---
HISTORY: general weakness COMPARISON: 03/13/2018 FINDINGS: LUNGS: No active pulmonary disease. PLEURA: No significant pleural effusion identified, no pneumothorax apparent. CARDIOVASCULAR: Normal. OSSEOUS STRUCTURES: No significant abnormalities. VISUALIZED UPPER ABDOMEN: Normal. OTHER FINDINGS: None. IMPRESSION: No active disease. No significant interval change compared to the prior examination(s).
--- NOTE | 2018-03-17 18:11 | CP.PCM.HP ---
<Haroon Asencio - Last Filed: 03/17/18 22:16> History of Present Illness - History of Present Illness History of Present Illness: Patient is a 43 year old female with past medical history of anemia, right- sided residual weakness due to CVA, aand HTN who presents to the Emergency department complaining of fatigue and generalized weakness. Patient's partner reports that she has been sleeping frequently throughout the week. Patient was last here 4 days ago due to a syncopal event and decided to leave AMA. Patient states that her stool has been brown not black. Patient denies fevers, chills, chest pain, shortness of breath, cough, diarrhea, nausea, or vomiting. Patient is a poor historian. In Ed, hemoglobin was found to be 8.1 and patient recieved one unit of RBC. Patient was hemodynamically stable. 12 point ROS obtained and negative, except as per HPI. PMH: Anemia, CVA with right sided residual weakness, HTN PSH: Cholecystectomy All: NKDA FHx: HTN SHx: Denies tobacco/alcohol/Illicits/IVDA Meds: Memantine HCL 10mg daily ASA 325mg daily Xanax 0.25mg BID Losartan 100mg daily Tylenol 325 PRN Pantoprazole 40mg daily Present on Admission - Present on Admission Any Indicators Present on Admission: No History of DVT/PE: No History of Uncontrolled Diabetes: No Urinary Catheter: No Decubitus Ulcer Present: No Review of Systems - Review of Systems Review of Systems: as per hpi Past Patient History - Infectious Disease Hx of Infectious Diseases: None - Tetanus Immunizations Tetanus Immunization: Unknown - Past Social History Smoking Status: Light Smoker < 10 Cigarettes Daily - CARDIAC Hx Hypertension: Yes - PULMONARY Hx Respiratory Disorders: No - NEUROLOGICAL HX Cerebrovascular Accident: Yes (right sided weakness) - HEENT Hx HEENT Problems: No - RENAL Hx Chronic Kidney Disease: No - ENDOCRINE/METABOLIC Hx Endocrine Disorders: No - HEMATOLOGICAL/ONCOLOGICAL Hx Blood Disorders: No - INTEGUMENTARY Hx Dermatological Problems: No - MUSCULOSKELETAL/RHEUMATOLOGICAL Hx Arthritis: Yes - GASTROINTESTINAL Hx Gastrointestinal Disorders: Yes (H/O GT PLACEMENT) Hx Gall Bladder Disease: Yes (CHOLECYSTECTOMY) Other/Comment: GI BLEED - GENITOURINARY/GYNECOLOGICAL Hx Genitourinary Disorders: No - PSYCHIATRIC Hx Psychophysiologic Disorder: Yes Hx Anxiety: Yes Hx Bipolar Disorder: Yes Hx Depression: Yes Hx Substance Use: No - SURGICAL HISTORY Hx Cholecystectomy: Yes - ANESTHESIA Hx Anesthesia Reactions: No Hx Malignant Hyperthermia: No Meds Allergies/Adverse Reactions: Allergies Allergy/AdvReac Type Severity Reaction Status Date / Time No Known Allergies Allergy Verified 11/07/17 13:48 Physical Exam - Constitutional Appears: No Acute Distress - Head Exam Head Exam: ATRAUMATIC, NORMAL INSPECTION - Eye Exam Eye Exam: Normal appearance - ENT Exam ENT Exam: Mucous Membranes Moist - Respiratory Exam Respiratory Exam: Clear to Auscultation Bilateral, NORMAL BREATHING PATTERN - Cardiovascular Exam Cardiovascular Exam: REGULAR RHYTHM, +S1, +S2 - GI/Abdominal Exam GI & Abdominal Exam: Normal Bowel Sounds, Soft, Tenderness - Extremities Exam Extremities exam: Positive for: normal inspection - Neurological Exam Neurological exam: Alert - Psychiatric Exam Psychiatric exam: Anxious, Normal Affect - Skin Skin Exam: Pallor Results - Vital Signs Recent Vital Signs: Last Vital Signs Temp 98.0 F 03/17/18 17:41 Pulse 65 03/17/18 17:41 Resp 18 03/17/18 17:41 BP 159/102 H 03/17/18 17:41 Pulse Ox 100 03/17/18 14:15 - Labs Result Diagrams: 03/17/18 21:20 03/17/18 14:00 Assessment & Plan - Assessment and Plan (Free Text) Assessment: 43 year old female with past medical history of anemia, right-sided residual weakness due to CVA, and HTN who presents to the Emergency department complaining of fatigue and generalized weakness. Found to have symptomatic anemia with hemoglobin of 8.1. Hemodynamically stable. Symptomatic Anemia - Hb was 8.1, Patient received 1 unit of RBC in the ED, Will receive second now - Stool guiac was negative - Iron studies ordered - GI consulted, recs appreciated - continue protonix 40mg daily - continue zofran as needed for nausea - Follow up Hb following transfusions - Follow up morning labs Hypertension - Continue home losartan History of CVA - Currently stable - will order PT Case and plan was discussed with Dr. Pickens <Brenda Pickens - Last Filed: 03/18/18 08:47> Results - Vital Signs Recent Vital Signs: Last Vital Signs Temp 98.7 F 03/18/18 06:00 Pulse 91 H 03/18/18 06:00 Resp 18 03/18/18 06:00 BP 133/83 03/18/18 06:00 Pulse Ox 96 03/18/18 06:00 - Labs Result Diagrams: 03/18/18 06:10 03/18/18 06:10 Labs: Laboratory Results - last 24 hr 03/17/18 03/17/18 03/18/18 18:30 21:20 01:05 WBC 7.0 D 7.6 RBC 4.39 4.68 Hgb 8.9 L 9.6 L Hct 29.7 L 31.5 L MCV 67.7 L 67.3 L MCH 20.3 L 20.5 L MCHC 30.0 L 30.5 L RDW 18.5 H 18.6 H Plt Count 429 446 MPV 7.7 7.8 Gran % 44.8 L Lymph % (Auto) 45.6 H [place] % (Auto) 7.1 H Eos % (Auto) 2.1 Baso % (Auto) 0.4 Gran # 3.14 Lymph # (Auto) 3.2 [place] # (Auto) 0.5 Eos # (Auto) 0.2 Baso # (Auto) 0.03 PT 12.5 INR 1.09 H Sodium Potassium Chloride Carbon Dioxide Anion Gap BUN Creatinine Est GFR ( Amer) Est GFR (Non-Af Amer) Random Glucose Calcium Total Bilirubin AST ALT Alkaline Phosphatase Total Protein Albumin Globulin Albumin/Globulin Ratio 03/18/18 03/18/18 06:10 06:10 WBC 6.5 RBC 4.61 Hgb 9.3 L Hct 31.1 L MCV 67.5 L MCH 20.2 L MCHC 29.9 L RDW 18.6 H Plt Count 489 H MPV 8.1 Gran % Lymph % (Auto) [place] % (Auto) Eos % (Auto) Baso % (Auto) Gran # Lymph # (Auto) [place] # (Auto) Eos # (Auto) Baso # (Auto) PT INR Sodium 139 Potassium 3.2 L Chloride 107 Carbon Dioxide 22 Anion Gap 13 BUN 5 L Creatinine 0.5 L Est GFR ( Amer) > 60 Est GFR (Non-Af Amer) > 60 Random Glucose 94 Calcium 8.6 Total Bilirubin 0.7 AST 33 ALT 26 Alkaline Phosphatase 81 Total Protein 6.7 Albumin 3.7 Globulin 3.1 Albumin/Globulin Ratio 1.2 Attending/Attestation - Attestation I have personally seen and examined this patient.: Yes I have fully participated in the care of the patient.: Yes I have reviewed all pertinent clinical information: Yes Notes (Text): Patient seen and examined by me at 5:30 PM 03/17/18 with resident at bedside. Case including physical assessment and plan discussed in detail with resident. Agree with above with following additions/changes. Patient states that she presents to the emergency room on 03/13/2018 for near syncope and lightheadedness. At that time she signed out AGAINST MEDICAL ADVICE. Patient states that she continued to have lightheadedness and fatigue. She also complains of generalized weakness. Patient's sister and boyfriend at bedside. Patient with dysarthria secondary to previous stroke. Patient asking boyfriend at bedside to give history. History taken from boyfriend with patient' s permission. Patient does have a history of heavy menses. She is being followed by nurse liaison as an outpatient. She did recently have an endometrial biopsy. She states she has not had heavy bleeding in about 2 weeks. She also complains of some headaches. No change in vision. No fevers or chills. She is having some abdominal pain around the umbilical site. She states that the pain just started and is cramping in nature. No radiation of the pain. Patient did not try any medications for this at home. No associated nausea or vomiting. No dysuria. No diarrhea or constipation. Patient denies any hematemesis. She denies any blood in her stool. Denies seeing any dark stools. Patient does have a history of a stomach ulcer in the past. She also has a history of a positive stool for occult blood in the past. She does not see a drafter electronic. She does state she takes aspirin daily. She denies any use of any other NSAIDs. Family history: Mom and has a history of 3 strokes. Father is alive and has a history of COPD and psychiatric illness. Physical exam: Gen: Patient is awake and alert lying in bed in no acute distress HEENT: Normocephalic atraumatic. extraocular muscles intact. Pupils equal and reactive. No conjunctival pallor noted. Hearing grossly intact. Ears and nose externally unremarkable. Pharynx is pink. Dry mucous membranes. No pharyngeal erythema or exudate appreciated. Neck is supple. Pulmonary: Normal respiratory effort. No rhonchi, rales, or wheezing appreciated Cardiovascular: Normal rhythm. Normal S1 and S2. No murmurs or gallops appreciated. Gastrointestinal: Soft, positive mild left-sided tenderness near the umbilicus, nondistended. Positive bowel sounds all 4 quadrants. No guarding. Musculoskeletal: Positive for right upper extremity hemiparesis. Vascular: 2+ peripheral pulses upper and lower extremities Central nervous system: AAO 3. Positive right upper extremity hemiparesis. Positive dysarthria. This is secondary to a previous stroke and is chronic. Dermatologic: Skin warm and dry Assessment and plan: Patient is a 43-year-old female, presented to the emergency room with fatigue, generalized weakness, and near syncopal episodes at home. Patient found to have anemia. 1. Acute on chronic symptomatic anemia: Patient being transfused 1 unit packed red blood cells by the emergency room. Patient has a history of gastric ulcer. Does take Protonix at home. Continue Protonix. Stool for occult blood in the ED negative. We'll consult GI. Follow-up iron studies. Placed on IV fluids. 2. Hypokalemia. We'll give oral potassium. Follow up repeat labs in a.m. 3. History of CVA with residual right upper extremity hemiparesis and dysarthria. Will hold patient's aspirin until seen by GI for now. 4. Essential hypertension. Continue home Cozaar 5. History of anxiety. Continue home Xanax 6. Drug abuse. Patient does use marijuana daily. Counseled on Cessation. Case was discussed with patient regarding current diagnosis and treatment plan.
[2018-03-17 18:38] LABS: IRON 25 ug/dL (45-180)
[2018-03-17 18:49] LABS: INR 1.09 (0.93-1.08); PROTHROMBIN TIME 12.5 SECONDS (9.4-12.5)
[2018-03-17 18:57] LABS: % IRON SATURATION 6 % (20-55); TOTAL IRON BINDING CAPACITY 460 ug/dL (265-497)
[2018-03-17 21:23] LABS: BASO # 0.03 K/mm3 (0.0-2.0); BASO % 0.4 % (0.0-3.0); EOS # 0.2 (0.0-0.7); EOS % 2.1 % (1.5-5.0); GRAN # 3.14 (1.4-6.5); GRAN % 44.8 % (50.0-68.0); HEMOGLOBIN 8.9 g/dL (12.0-16.0); LYMPH # 3.2 (1.2-3.4); LYMPH % 45.6 % (22.0-35.0); MEAN CELL VOLUME 67.7 fl (80.0-105.0); MEAN CORPUSCULAR HEMOGLOBIN 20.3 pg (25.0-35.0); MEAN PLATELET VOLUME 7.7 fl (7.0-11.0); MONO # 0.5 (0.1-0.6); MONO % 7.1 % (1.0-6.0); RBC 4.39 10^6/uL (3.5-6.1); RED CELL DISTRIBUTION WIDTH 18.5 % (11.5-14.5)
[2018-03-17] MEDS ORDERED: Pneumococcal 23-Valent Vaccine IM ONE (21:47)
[2018-03-18 01:16] LABS: HEMOGLOBIN 9.6 g/dL (12.0-16.0); MEAN CELL VOLUME 67.3 fl (80.0-105.0); MEAN CORPUSCULAR HEMOGLOBIN 20.5 pg (25.0-35.0); MEAN CORPUSCULAR HGB CONC 30.5 g/dl (31.0-37.0); MEAN PLATELET VOLUME 7.8 fl (7.0-11.0); RBC 4.68 10^6/uL (3.5-6.1); RED CELL DISTRIBUTION WIDTH 18.6 % (11.5-14.5); WHITE BLOOD COUNT 7.6 10^3/ul (4.5-11.0)
[2018-03-18] MEDS ORDERED: Pantoprazole 40 mg EC Tab PO SCH (06:00)
[2018-03-18 06:36] LABS: HEMOGLOBIN 9.3 g/dL (12.0-16.0); MEAN CELL VOLUME 67.5 fl (80.0-105.0); MEAN CORPUSCULAR HEMOGLOBIN 20.2 pg (25.0-35.0); MEAN CORPUSCULAR HGB CONC 29.9 g/dl (31.0-37.0); MEAN PLATELET VOLUME 8.1 fl (7.0-11.0); RBC 4.61 10^6/uL (3.5-6.1); RED CELL DISTRIBUTION WIDTH 18.6 % (11.5-14.5); WHITE BLOOD COUNT 6.5 10^3/ul (4.5-11.0)
[2018-03-18 07:19] LABS: ALB/GLOB RATIO 1.2 (1.1-1.8); ALBUMIN 3.7 g/dL (3.0-4.8); ALT/SGPT 26 U/L (7-56); AST/SGOT 33 U/L (14-36); BLOOD UREA NITROGEN 5 mg/dL (7-21); CALCIUM 8.6 mg/dL (8.4-10.5); GFR AFRICAN-AMERICAN > 60; GFR NON-AFRICAN AMERICAN > 60
[2018-03-18 07:50] LABS: HEMOGLOBIN 8.1 g/dL (12.0-16.0); MEAN CELL VOLUME 67.1 fl (80.0-105.0); MEAN CORPUSCULAR HEMOGLOBIN 19.5 pg (25.0-35.0); RBC 4.16 10^6/uL (3.5-6.1); RED CELL DISTRIBUTION WIDTH 18.3 % (11.5-14.5); WHITE BLOOD COUNT 5.8 10^3/ul (4.5-11.0)
[2018-03-18 07:51] LABS: BASO # 0.03 K/mm3 (0.0-2.0); BASO % 0.5 % (0.0-3.0); EOS # 0.1 (0.0-0.7); EOS % 1.9 % (1.5-5.0); GRAN # 3.11 (1.4-6.5); GRAN % 53.8 % (50.0-68.0); LYMPH # 2.1 (1.2-3.4); LYMPH % 35.9 % (22.0-35.0); MONO # 0.5 (0.1-0.6); MONO % 7.9 % (1.0-6.0)
--- NOTE | 2018-03-18 08:34 | CARD ---
APPROVED REPORT EKG Measurement Heart [id number] <Conclusion> Normal sinus rhythm Voltage criteria for left ventricular hypertrophy No change except the rate is faster
[2018-03-18] MEDS ORDERED: Acetaminophen 650mg/20.3ml solution UD PO ONE (09:20)
[2018-03-18] MEDS: Potassium Chloride 20 mEq ER Tab PO STA ×2 (09:39→09:48)
[2018-03-18 11:44] LABS: FERRITIN 4.9 ng/mL
[2018-03-18 12:13] LABS: FOLATE 12.7 ng/mL
--- NOTE | 2018-03-18 13:16 | CP.PCM.CON ---
<Madhav Tariq - Last Filed: 03/18/18 13:05> History of Present Illness - History of Present Illness History of Present Illness: PGY-4 GI Fellow Consult Note Mrs. Walters is a 43 to BF with h/o Duodenal + Gastric Ulcers (FC IIc and III, respectively), CVA (due to HTN, w/R sided deficits, recently on ASA), HTN, presenting with fatigue and generalized weakness. GI consulted for symptomatic anemia. She present with these worsening complaints over the last several days to weeks. She initially presented a few days ago after a syncopal event. Hgb was found to be ~8 from 10-11 baseline. Rectal exam was with brown stool and guaic negative. She left AMA but returned for worsening symptoms. Pt's daughter reports that she recently stopped taking daily ASA per outpatient provider notes. Daughter also states that she believes patient has been abstinent from EtOH as far as she knows and had not been taking any other NSAIDs or blood thinners. Patient denied any hematemesis, abd pain, N/V, hematochezia nor melena. Upon admission she was transfused one unit PRBC with good response. 12 point ROS negative other than stated above. MHx EGD 04/2017: Gastric Ulcers - FC III, Duodenal Ulcers - FC-2c, Chronic Gastritis. Bxs with chronic active moderate gastritis, negative for Hpylori and metaplasia CSPY 04/2017: Internal Hemorrhoids CVA w/R deficits HTN H/o Anemia SurgHx CCx EGD+CSPY as above Meds Memantine ASA Xanax Losartan APAP FamHx HTN SocHx Denies EtOH, Tob, Illicits All NKDA Past Patient History - Infectious Disease Hx of Infectious Diseases: None - Tetanus Immunizations Tetanus Immunization: Unknown - Past Social History Smoking Status: Light Smoker < 10 Cigarettes Daily - CARDIAC Hx Hypertension: Yes - PULMONARY Hx Respiratory Disorders: No - NEUROLOGICAL HX Cerebrovascular Accident: Yes (right sided weakness) - HEENT Hx HEENT Problems: No - RENAL Hx Chronic Kidney Disease: No - ENDOCRINE/METABOLIC Hx Endocrine Disorders: No - HEMATOLOGICAL/ONCOLOGICAL Hx Blood Disorders: No - INTEGUMENTARY Hx Dermatological Problems: No - MUSCULOSKELETAL/RHEUMATOLOGICAL Hx Arthritis: Yes - GASTROINTESTINAL Hx Gastrointestinal Disorders: Yes (H/O GT PLACEMENT) Hx Gall Bladder Disease: Yes (CHOLECYSTECTOMY) Other/Comment: GI BLEED - GENITOURINARY/GYNECOLOGICAL Hx Genitourinary Disorders: No - PSYCHIATRIC Hx Psychophysiologic Disorder: Yes Hx Anxiety: Yes Hx Bipolar Disorder: Yes Hx Depression: Yes Hx Substance Use: No - SURGICAL HISTORY Hx Cholecystectomy: Yes - ANESTHESIA Hx Anesthesia Reactions: No Hx Malignant Hyperthermia: No Meds Allergies/Adverse Reactions: Allergies Allergy/AdvReac Type Severity Reaction Status Date / Time No Known Allergies Allergy Verified 11/07/17 13:48 - Medications Medications: Current Medications Acetaminophen (Tylenol 325mg Tab) 325 mg PO Q6H PRN PRN Reason: Pain, Mild (1-3) Alprazolam (Xanax) 0.25 mg PO BID [facility] Stop: 03/25/18 10:01 Last Admin: 03/18/18 10:24 Dose: Not Given Potassium Chloride 20 meq/ (Sodium Chloride) 1,010 mls @ 80 mls/hr IV .[id number] [facility] Stop: 03/18/18 22:52 Last Admin: 03/18/18 10:43 Dose: 80 mls/hr Losartan Potassium (Cozaar) 100 mg PO DAILY [facility] Last Admin: 03/18/18 09:46 Dose: Not Given Ondansetron HCl (Zofran Inj) 4 mg IVP Q6H PRN PRN Reason: Nausea/Vomiting Last Admin: 03/18/18 10:42 Dose: 4 mg Pantoprazole Sodium (Protonix Inj) 40 mg IVP BID [facility] Physical Exam - Constitutional Appears: Non-toxic, No Acute Distress - Head Exam Head Exam: ATRAUMATIC, NORMAL INSPECTION - Eye Exam Eye Exam: EOMI. absent: Scleral icterus - ENT Exam ENT Exam: Normal External Ear Exam, Normal Oropharynx - Neck Exam Neck exam: Positive for: Full Rom, Normal Inspection - Respiratory Exam Respiratory Exam: absent: Accessory Muscle Use, Chest Wall Tenderness, Respiratory Distress - Cardiovascular Exam Cardiovascular Exam: RRR. absent: JVD - GI/Abdominal Exam GI & Abdominal Exam: Normal Bowel Sounds, Soft. absent: Distended, Firm, Guarding, Mass, Rebound, Tenderness - Neurological Exam Neurological exam: Alert, CN II-XII Intact - Psychiatric Exam Psychiatric exam: Flat Affect, Normal Mood Results - Vital Signs Recent Vital Signs: Last Vital Signs Temp 98.7 F 03/18/18 06:00 Pulse 91 H 03/18/18 06:00 Resp 18 03/18/18 06:00 BP 133/83 03/18/18 06:00 Pulse Ox 96 03/18/18 06:00 - Labs Result Diagrams: 03/18/18 06:10 03/18/18 06:10 Labs: Laboratory Results - last 24 hr 03/17/18 03/17/18 03/17/18 18:30 19:28 21:20 WBC 7.0 D RBC 4.39 Hgb 8.9 L Hct 29.7 L MCV 67.7 L MCH 20.3 L MCHC 30.0 L RDW 18.5 H Plt Count 429 MPV 7.7 Gran % 44.8 L Lymph % (Auto) 45.6 H [place] % (Auto) 7.1 H Eos % (Auto) 2.1 Baso % (Auto) 0.4 Gran # 3.14 Lymph # (Auto) 3.2 [place] # (Auto) 0.5 Eos # (Auto) 0.2 Baso # (Auto) 0.03 PT 12.5 INR 1.09 H Sodium Potassium Chloride Carbon Dioxide Anion Gap BUN Creatinine Est GFR ( Amer) Est GFR (Non-Af Amer) Random Glucose Calcium Transferrin 350.57 Total Bilirubin AST ALT Alkaline Phosphatase Total Protein Albumin Globulin Albumin/Globulin Ratio 03/18/18 03/18/18 03/18/18 01:05 06:10 06:10 WBC 7.6 6.5 RBC 4.68 4.61 Hgb 9.6 L 9.3 L Hct 31.5 L 31.1 L MCV 67.3 L 67.5 L MCH 20.5 L 20.2 L MCHC 30.5 L 29.9 L RDW 18.6 H 18.6 H Plt Count 446 489 H MPV 7.8 8.1 Gran % Lymph % (Auto) [place] % (Auto) Eos % (Auto) Baso % (Auto) Gran # Lymph # (Auto) [place] # (Auto) Eos # (Auto) Baso # (Auto) PT INR Sodium 139 Potassium 3.2 L Chloride 107 Carbon Dioxide 22 Anion Gap 13 BUN 5 L Creatinine 0.5 L Est GFR ( Amer) > 60 Est GFR (Non-Af Amer) > 60 Random Glucose 94 Calcium 8.6 Transferrin Total Bilirubin 0.7 AST 33 ALT 26 Alkaline Phosphatase 81 Total Protein 6.7 Albumin 3.7 Globulin 3.1 Albumin/Globulin Ratio 1.2 Assessment & Plan - Assessment and Plan (Free Text) Assessment: Acute on Chronic Microcytic Anemia: Hgb 8 from baseline 10-11. Symptomatic. Occult negative but with know PUD (Gastric+Duodenal Ulcers). Never had repeat EGD. Has ongoing risk factors of ASA use though recently stopped. Denies any EtOH. Plan: IV PPI BID CLD NPO at MA for EGD in AM <Merlin Zuniga V - Last Filed: 03/18/18 23:16> Meds - Medications Medications: Current Medications Acetaminophen (Tylenol 325mg Tab) 325 mg PO Q6H PRN PRN Reason: Pain, Mild (1-3) Alprazolam (Xanax) 0.5 mg PO HS TIA PRN Reason: Protocol Last Admin: 03/18/18 21:25 Dose: 0.5 mg Losartan Potassium (Cozaar) 100 mg PO DAILY [facility] Last Admin: 03/18/18 09:46 Dose: Not Given Ondansetron HCl (Zofran Inj) 4 mg IVP Q6H PRN PRN Reason: Nausea/Vomiting Last Admin: 03/18/18 10:42 Dose: 4 mg Pantoprazole Sodium (Protonix Inj) 40 mg IVP BID [facility] Last Admin: 03/18/18 17:35 Dose: 40 mg Results - Vital Signs Recent Vital Signs: Last Vital Signs Temp 98.7 F 03/18/18 22:59 Pulse 66 03/18/18 22:59 Resp 16 03/18/18 22:59 BP 153/80 H 03/18/18 22:59 Pulse Ox 100 03/18/18 22:59 - Labs Result Diagrams: 03/18/18 06:10 03/18/18 06:10 Labs: Laboratory Results - last 24 hr 03/17/18 03/18/18 03/18/18 19:28 01:05 06:10 WBC 7.6 6.5 RBC 4.68 4.61 Hgb 9.6 L 9.3 L Hct 31.5 L 31.1 L MCV 67.3 L 67.5 L MCH 20.5 L 20.2 L MCHC 30.5 L 29.9 L RDW 18.6 H 18.6 H Plt Count 446 489 H MPV 7.8 8.1 Sodium Potassium Chloride Carbon Dioxide Anion Gap BUN Creatinine Est GFR ( Amer) Est GFR (Non-Af Amer) Random Glucose Calcium Transferrin 350.57 Total Bilirubin AST ALT Alkaline Phosphatase Total Protein Albumin Globulin Albumin/Globulin Ratio 03/18/18 06:10 WBC RBC Hgb Hct MCV MCH MCHC RDW Plt Count MPV Sodium 139 Potassium 3.2 L Chloride 107 Carbon Dioxide 22 Anion Gap 13 BUN 5 L Creatinine 0.5 L Est GFR ( Amer) > 60 Est GFR (Non-Af Amer) > 60 Random Glucose 94 Calcium 8.6 Transferrin Total Bilirubin 0.7 AST 33 ALT 26 Alkaline Phosphatase 81 Total Protein 6.7 Albumin 3.7 Globulin 3.1 Albumin/Globulin Ratio 1.2 Attending/Attestation - Attestation I have personally seen and examined this patient.: Yes I have fully participated in the care of the patient.: Yes I have reviewed all pertinent clinical information: Yes Notes (Text): henry 03/18/18 23:15
[2018-03-18] MEDS ORDERED: Potassium Chloride 40 mEq/30 ml LIQ UD PO ONE (14:56)
--- NOTE | 2018-03-18 21:33 | CP.PCM.PN ---
<Ynes Mcclellan - Last Filed: 03/18/18 21:23> Subjective - Date & Time of Evaluation Date of Evaluation: 03/18/18 Time of Evaluation: 21:23 - Subjective Subjective: Ynes Mcclellan D.O. PGY1 -- Social Media Marketing Analyst -- Medicine Progress Note Subjective Patient was seen at bedside this morning and reports no acute complaints overnight and/or in the morning. 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 Patient admits to pruritus of her left thigh, but otherwise denies fevers, chills, chest pain, shortness of breath, dyspnea on exertion, cough, abdominal pain, nausea, vomiting, diarrhea, back pain, neck pain, headache, dizziness, or any other complaint. 12 point review of systems is negative other than above. Objective: Physical Exam: - Constitutional Appears: Non-toxic, No Acute Distress - Head Exam Head Exam: ATRAUMATIC, NORMAL INSPECTION - Eye Exam Eye Exam: Conjunctiva white sclera clear absent: Scleral icterus - ENT Exam ENT Exam: Normal External Ear Exam, Normal Oropharynx - Neck Exam Neck exam: Positive for: Full Rom, Normal Inspection - Respiratory Exam Respiratory Exam: absent: Accessory Muscle Use, Chest Wall Tenderness, Respiratory Distress - Cardiovascular Exam Cardiovascular Exam: RRR. S1 and S2 appreciated. No Murmur, Gallops. - GI/Abdominal Exam GI & Abdominal Exam: Normal Bowel Sounds, Soft.absent: Distended, Firm, Guarding , Mass, Rebound, Tenderness - Neurological Exam Neurological exam: Alert, CN II-XII Intact - Psychiatric Exam Psychiatric exam: Flat Affect, Normal Mood Objective - Vital Signs/Intake and Output Vital Signs (last 24 hours): Temp Pulse Resp BP Pulse Ox 98.6 F 70 18 116/80 99 03/18/18 14:00 03/18/18 14:00 03/18/18 14:00 03/18/18 14:00 03/18/18 14:00 - Medications Medications: Current Medications Acetaminophen (Tylenol 325mg Tab) 325 mg PO Q6H PRN PRN Reason: Pain, Mild (1-3) Alprazolam (Xanax) 0.5 mg PO HS TIA PRN Reason: Protocol Potassium Chloride 20 meq/ (Sodium Chloride) 1,010 mls @ 80 mls/hr IV .[id number] TIA Stop: 03/18/18 22:52 Last Admin: 03/18/18 10:43 Dose: 80 mls/hr Losartan Potassium (Cozaar) 100 mg PO DAILY [facility] Last Admin: 03/18/18 09:46 Dose: Not Given Ondansetron HCl (Zofran Inj) 4 mg IVP Q6H PRN PRN Reason: Nausea/Vomiting Last Admin: 03/18/18 10:42 Dose: 4 mg Pantoprazole Sodium (Protonix Inj) 40 mg IVP BID [facility] Last Admin: 03/18/18 17:35 Dose: 40 mg - Labs Labs: 03/18/18 06:10 03/18/18 06:10 PT 12.5 SECONDS (9.4-12.5) 03/17/18 18:30 INR 1.09 (0.93-1.08) H 03/17/18 18:30 - Additional Findings Additional findings: As noted in above under "Objective" Assessment and Plan - Assessment and Plan (Free Text) Assessment: This is a 43 year old female with a past medical history of symptomatic iron deficiency anemia, hypertension, thrombocytosis CVA, PUD, internal hemorrhoids, depression, anxiety, Hep C positive. Patient presented to [facility] ED BIB boyfriend for generalized weakness. Patient's partner reports that she has been sleeping frequently throughout the week. She reports that her physician, Dr. Balbir Narvaez instructed her to present to the ED if she feels weak. Patient was last here 4 days ago due to a near-syncopal event, and at that time had a rectal exam which she states was normal. At that time it was recommended that patient be admitted but she declined and signed an AMA. She believes that her stool has been brown not black. Patient denies fevers, chills, chest pain, shortness of breath, dyspnea on exertion, cough, abdominal pain, nausea, vomiting, diarrhea, back pain, neck pain, headache, dizziness, or any other complaint. Assessment & Plan: Generalized weakness likley secondary to acute on chronic iron deficiency anemia Hgb 8 from baseline 10-11, recheck Symptomatic, 1 unit packed red blood cells transfused in ED Occult negative but with known Gastric+Duodenal Ulcers Gastroenterology: recommends repeat EGD, scheduled in AM monitor protonix IV BID clear liquid diet NPO after midnight orthostatic vital signs monitor Hypokalemia 3.2 on initial check K+ IVP 20mg, K+ 40mg PO solution monitor pruritus benadryl 25mg PO monitor hypertension cozaar 100mg PO daily monitor Hx of cerebral vascular accident with residual right sided weakness/ parasthesias and expressive aphasia consider neuro consult PT eval OT eval adoption social worker consulted caser in consulted monitor Hx Anxiety xanax PRN monitor PPx: GI - protonix DVT - This case was reviewed, and patient seen with, attending physician Radha Portillo D.O. PGY1 <Brenda Pickens R - Last Filed: 03/19/18 08:33> Objective - Vital Signs/Intake and Output Vital Signs (last 24 hours): Temp Pulse Resp BP Pulse Ox 97.8 F 74 20 155/92 H 98 03/19/18 06:00 03/19/18 06:00 03/19/18 06:00 03/19/18 06:00 03/19/18 06:00 - Medications Medications: Current Medications Acetaminophen (Tylenol 325mg Tab) 325 mg PO Q6H PRN PRN Reason: Pain, Mild (1-3) Alprazolam (Xanax) 0.5 mg PO HS [facility] PRN Reason: Protocol Last Admin: 03/18/18 21:25 Dose: 0.5 mg Losartan Potassium (Cozaar) 100 mg PO DAILY [facility] Last Admin: 03/18/18 09:46 Dose: Not Given Ondansetron HCl (Zofran Inj) 4 mg IVP Q6H PRN PRN Reason: Nausea/Vomiting Last Admin: 03/18/18 10:42 Dose: 4 mg Pantoprazole Sodium (Protonix Inj) 40 mg IVP BID [facility] Last Admin: 03/18/18 17:35 Dose: 40 mg - Labs Labs: 03/19/18 06:30 03/19/18 06:30 PT 12.5 SECONDS (9.4-12.5) 03/17/18 18:30 INR 1.09 (0.93-1.08) H 03/17/18 18:30 Attending/Attestation - Attestation I have personally seen and examined this patient.: Yes I have fully participated in the care of the patient.: Yes I have reviewed all pertinent clinical information, including history, physical exam and plan: Yes Notes (Text): Patient seen and examined by me at 9:45AM 03/18/18 with resident at bedside. Case including physical assessment and plan discussed in detail with resident. Agree with above with following additions/changes. Patient states that she is feeling about the same as she did on admission. She is status post 1 unit packed red blood cells. Still complains of feeling weak and fatigued. Abdominal pain has resolved. Nausea or vomiting. No current headaches or dizziness. No fevers or chills. No dysuria. No diarrhea, constipation, or hematochezia. No acute signs of bleeding. Patient has a difficult time communicating secondary to expressive aphasia. Physical exam: Gen: Patient is awake and alert lying in bed in no acute distress HEENT: Normocephalic atraumatic. extraocular muscles intact. Pupils equal and reactive. Oropharynx is pink and moist. No pharyngeal erythema or exudate appreciated. Neck is supple. Pulmonary: Normal respiratory effort. No rhonchi, rales, or wheezing appreciated Cardiovascular: Normal rhythm. Normal S1 and S2. No murmurs or gallops appreciated. Gastrointestinal: Soft, nontender, nondistended. Positive bowel sounds all 4 quadrants. No guarding. Musculoskeletal: Positive for right upper extremity hemiparesis. Vascular: 2+ peripheral pulses upper and lower extremities Central nervous system: AAO 3. Positive right upper extremity hemiparesis. Positive dysarthria and expressive aphasia.. Secondary to a previous stroke and is chronic. Dermatologic: Skin warm and dry Assessment and plan: Patient is a 43-year-old female, presented to the emergency room with fatigue, generalized weakness, and near syncopal episodes at home. Patient found to have anemia. 1. Acute on chronic symptomatic iron deficiency anemia: Patient being transfused 1 unit packed red blood cells by the emergency room. GI following, recommendations appreciated. EGD tomorrow. H&H improved. Patient still symptomatic. Continue with Protonix. 2. Hypokalemia. Replete potassium. Follow-up AM labs 3. History of CVA with residual right upper extremity hemiparesis, dysarthria with expressive aphasia. Will hold patient's aspirin until seen by GI for now. 4. Essential hypertension. Continue home Cozaar 5. History of anxiety. Continue home Xanax 6. Drug abuse. Patient does use marijuana daily. Counseled on Cessation. 7. Patient is a full code 8. GI and DVT prophylaxis. Protonix and SCD. Case was discussed in detail with patient regarding current diagnosis and treatment plan.
--- NOTE | 2018-03-19 06:14 | CP.PCM.PN ---
Addendum entered and electronically signed by Ynes Mcclellan DO 03/19/18 13: 47: Addendum to plan for: generalized weakness likely secondary to acute on chronic iron deficiency anemia - Vitamin B12 ordered, awaiting results - Vitamin D level ordered, awaiting results Original Note: <Ynes Mccelllan - Last Filed: 03/19/18 13:36> Subjective - Date & Time of Evaluation Date of Evaluation: 03/19/18 Time of Evaluation: 06:11 - Subjective Subjective: Ynes Mcclellan D.O. PGY1 -- Auto Body Man -- Medicine Progress Note Subjective Patient was seen at bedside this morning and reports no acute complaints overnight and/or in the morning. 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 She understands that the plan is to go for a repeat endoscopy today and is currently NPO. Patient says that she still feels weak, and says that she is unsure whether her weakness has improved. Patient admits her pruritus has improved somewhat with benadryl 25mg PO x1. Patient denies bowel movement, and says she is able to get up from bed with assistance but that she gets dizzy. Patient otherwise denies fevers, chills, chest pain, shortness of breath, dyspnea on exertion, cough, abdominal pain, nausea, vomiting, diarrhea, back pain, neck pain, headache, dizziness, or any other complaint. 12 point review of systems is negative other than above. Objective - Vital Signs/Intake and Output Vital Signs (last 24 hours): Temp Pulse Resp BP Pulse Ox 98.7 F 66 16 153/80 H 100 03/18/18 22:59 03/18/18 22:59 03/18/18 22:59 03/18/18 22:59 03/18/18 22:59 - Medications Medications: Current Medications Acetaminophen (Tylenol 325mg Tab) 325 mg PO Q6H PRN PRN Reason: Pain, Mild (1-3) Alprazolam (Xanax) 0.5 mg PO HS TIA PRN Reason: Protocol Last Admin: 03/18/18 21:25 Dose: 0.5 mg Losartan Potassium (Cozaar) 100 mg PO DAILY [facility] Last Admin: 03/18/18 09:46 Dose: Not Given Ondansetron HCl (Zofran Inj) 4 mg IVP Q6H PRN PRN Reason: Nausea/Vomiting Last Admin: 03/18/18 10:42 Dose: 4 mg Pantoprazole Sodium (Protonix Inj) 40 mg IVP BID [facility] Last Admin: 03/18/18 17:35 Dose: 40 mg - Labs Labs: 03/18/18 06:10 03/18/18 06:10 PT 12.5 SECONDS (9.4-12.5) 03/17/18 18:30 INR 1.09 (0.93-1.08) H 03/17/18 18:30 - Constitutional Appears: Well, Non-toxic, No Acute Distress - Head Exam Head Exam: ATRAUMATIC, NORMAL INSPECTION, NORMOCEPHALIC - Eye Exam Eye Exam: Normal appearance. absent: Conjunctival injection - ENT Exam ENT Exam: Mucous Membranes Moist, Normal Exam - Neck Exam Neck Exam: Full ROM, Normal Inspection - Respiratory Exam Respiratory Exam: Clear to Ausculation Bilateral, NORMAL BREATHING PATTERN. absent: Accessory Muscle Use, Chest Wall Tenderness, Decreased Breath Sounds, Rhonchi, Wheezes, Respiratory Distress, Stridor - Cardiovascular Exam Cardiovascular Exam: REGULAR RHYTHM, RRR. absent: Diastolic murmur, Gallop, Irregular Rhythm, Murmur - GI/Abdominal Exam GI & Abdominal Exam: Soft, Normal Bowel Sounds. absent: Distended, Tenderness, Diminished Bowel Sounds, Hernia - Extremities Exam Extremities Exam: Full ROM, Normal Inspection. absent: Tenderness - Back Exam Back Exam: NORMAL INSPECTION - Neurological Exam Neurological Exam: Alert, Awake, CN II-XII Intact, Oriented x3 - Psychiatric Exam Psychiatric exam: Flat Affect, Normal Mood - Skin Skin Exam: Dry, Intact, Normal Color, Rash (raised red papule on posterior thigh 1cm in diameter ), Warm Assessment and Plan - Assessment and Plan (Free Text) Assessment: This is a 43 year old female with a past medical history of symptomatic iron deficiency anemia, hypertension, thrombocytosis CVA, PUD, internal hemorrhoids, depression, anxiety, who presented for generalized weakness. Patient was subsequently admitted for generalized weakness and iron deficiency anemia. Assessment & Plan: generalized weakness likely secondary to acute on chronic iron deficiency anemia 1 pack blood cells transfused on day of admission Hgb 9.1, down from baseline 10-11, recheck continued weakness symptoms occult negative but with known Gastric+Duodenal Ulcers gastroenterology to perform repeat EGD today monitor protonix IV BID NPO orthostatic vital signs gastroenterology consulted, appreciated recommendations monitor hypokalemia, resolved K+ today 3.9 will recheck monitor lower extremity pruritus, resolved monitor hypertension cozaar 100mg PO daily monitor Hx of cerebral vascular accident with residual right sided weakness/ parasthesias and expressive aphasia consider neuro consult PT eval OT eval social media analyst consulted telephonic case manager consulted monitor history anxiety xanax 0.5mg PO HSP monitor PPx: GI - protonix DVT - SCD This case was reviewed, and patient seen with, attending physician Radha Portillo D.O. PGY1 <Brenda Pickens R - Last Filed: 03/20/18 08:22> Objective - Vital Signs/Intake and Output Vital Signs (last 24 hours): Temp Pulse Resp BP Pulse Ox 98.8 F 70 18 148/87 98 03/19/18 22:25 03/19/18 22:25 03/19/18 22:25 03/19/18 22:25 03/19/18 22:25 Intake and Output: 03/20/18 03/20/18 06:59 18:59 Intake Total 240 Balance 240 - Medications Medications: Current Medications Acetaminophen (Tylenol 325mg Tab) 325 mg PO Q6H PRN PRN Reason: Pain, Mild (1-3) Last Admin: 03/20/18 02:24 Dose: 325 mg Alprazolam (Xanax) 0.5 mg PO HS TIA PRN Reason: Protocol Last Admin: 03/19/18 21:16 Dose: 0.5 mg Cyanocobalamin (Vitamin B12 100 Mcg Tab) 100 mcg PO DAILY [facility] Last Admin: 03/19/18 11:37 Dose: Not Given Ergocalciferol (Drisdol 50,000 Intl Units Cap) 1 cap PO Q7D [facility] Losartan Potassium (Cozaar) 100 mg PO DAILY [facility] Last Admin: 03/19/18 10:12 Dose: 100 mg Ondansetron HCl (Zofran Inj) 4 mg IVP Q6H PRN PRN Reason: Nausea/Vomiting Last Admin: 03/18/18 10:42 Dose: 4 mg Pantoprazole Sodium (Protonix Inj) 40 mg IVP BID [facility] Last Admin: 03/19/18 17:11 Dose: 40 mg - Labs Labs: 03/20/18 06:00 03/20/18 06:00 PT 12.5 SECONDS (9.4-12.5) 03/17/18 18:30 INR 1.09 (0.93-1.08) H 03/17/18 18:30 Attending/Attestation - Attestation I have personally seen and examined this patient.: Yes I have fully participated in the care of the patient.: Yes I have reviewed all pertinent clinical information, including history, physical exam and plan: Yes Notes (Text): Patient seen and examined by me at 10:45AM 03/19/18 with resident at bedside. Case including physical assessment and plan discussed in detail with resident. Agree with above with following additions/changes. Patient states that she is still feeling weak. Has mild abdominal pain today. States she thinks is because she has not eaten. Patient feels hungry. No headaches or dizziness. No fevers or chills. No dysuria. No diarrhea, constipation, or hematochezia. No acute signs of bleeding. Patient with expressive aphasia. Physical exam: Gen: Patient is awake and alert lying in bed in no acute distress HEENT: Normocephalic atraumatic. extraocular muscles intact. Pupils equal and reactive. Oropharynx is pink and moist. No pharyngeal erythema or exudate appreciated. Neck is supple. Pulmonary: Normal respiratory effort. No rhonchi, rales, or wheezing appreciated Cardiovascular: Normal rhythm. Normal S1 and S2. No murmurs or gallops appreciated. Gastrointestinal: Soft, nontender, nondistended. Positive bowel sounds all 4 quadrants. No guarding. Musculoskeletal: Positive for right upper extremity hemiparesis. Vascular: 2+ peripheral pulses upper and lower extremities Central nervous system: AAO 3. Positive right upper extremity hemiparesis. Positive dysarthria and expressive aphasia. Secondary to a previous stroke and is chronic. Dermatologic: Skin warm and dry Assessment and plan: Patient is a 43-year-old female, presented to the emergency room with fatigue, generalized weakness, and near syncopal episodes at home. Patient found to have anemia. 1. Acute on chronic symptomatic iron deficiency anemia. Status post 1 unit packed red blood cells. GI following, recommendations appreciated. Patient for EGD today. H&H stable. Patient still symptomatic. Will check B12 and vitamin D. Continue with Protonix. 2. Hypokalemia. Resolved. Continue to monitor 3. History of CVA with residual right upper extremity hemiparesis, dysarthria with expressive aphasia. Will hold patient's aspirin until cleared by GI. 4. Essential hypertension. Continue Cozaar 5. History of anxiety. Continue Xanax 6. Drug abuse. Patient uses marijuana daily. Counseled on Cessation. 7. Patient is a full code 8. GI and DVT prophylaxis. Protonix and SCD. Case was discussed in detail with patient and medical collections specialist regarding current diagnosis and treatment plan.
[2018-03-19 07:01] LABS: HEMOGLOBIN 9.1 g/dL (12.0-16.0); MEAN CELL VOLUME 67.9 fl (80.0-105.0); MEAN CORPUSCULAR HEMOGLOBIN 20.1 pg (25.0-35.0); MEAN CORPUSCULAR HGB CONC 29.6 g/dl (31.0-37.0); MEAN PLATELET VOLUME 8.1 fl (7.0-11.0); RBC 4.52 10^6/uL (3.5-6.1); RED CELL DISTRIBUTION WIDTH 18.5 % (11.5-14.5); WHITE BLOOD COUNT 6.5 10^3/ul (4.5-11.0)
[2018-03-19 07:19] LABS: ALB/GLOB RATIO 1.3 (1.1-1.8); ALBUMIN 3.5 g/dL (3.0-4.8); ALT/SGPT 18 U/L (7-56); AST/SGOT 56 U/L (14-36); BLOOD UREA NITROGEN 5 mg/dL (7-21); CALCIUM 8.7 mg/dL (8.4-10.5); GFR AFRICAN-AMERICAN > 60; GFR NON-AFRICAN AMERICAN > 60
[2018-03-19] MEDS ORDERED: Propofol 10 mg/ml Inj (20 ML) ONE (13:50)
[2018-03-19] MEDS ORDERED: Sodium Chloride 0.9% 1,000 ML IV SCH (14:45)
[2018-03-20 06:53] LABS: HEMOGLOBIN 9.3 g/dL (12.0-16.0); MEAN CELL VOLUME 68.3 fl (80.0-105.0); MEAN CORPUSCULAR HEMOGLOBIN 20.2 pg (25.0-35.0); MEAN CORPUSCULAR HGB CONC 29.6 g/dl (31.0-37.0); RBC 4.6 10^6/uL (3.5-6.1); RED CELL DISTRIBUTION WIDTH 18.7 % (11.5-14.5); WHITE BLOOD COUNT 9.7 10^3/ul (4.5-11.0)
[2018-03-20] MEDS ORDERED: Ergocalciferol 50,000 Intl Units Cap PO SCH (07:30)
[2018-03-20 07:32] LABS: ALB/GLOB RATIO 1.3 (1.1-1.8); ALBUMIN 3.8 g/dL (3.0-4.8); ALT/SGPT 24 U/L (7-56); AST/SGOT 27 U/L (14-36); BLOOD UREA NITROGEN 9 mg/dL (7-21); CALCIUM 8.5 mg/dL (8.4-10.5); GFR AFRICAN-AMERICAN > 60; GFR NON-AFRICAN AMERICAN > 60
--- NOTE | 2018-03-20 13:17 | CP.PCM.DIS ---
<Ynes Mcclellan - Last Filed: 03/20/18 15:29> Provider - Provider Date of Admission: 03/17/18 15:39 Attending physician: Brenda Pickens DO Primary care physician: Dallin Naravez JD, MD Consults: Merlin Taylor V Time Spent in preparation of Discharge (in minutes): 60 Hospital Course - Lab Results Lab Results: Most Recent Lab Values WBC 9.7 10^3/ul (4.5-11.0) D 03/20/18 06:00 RBC 4.60 10^6/uL (3.5-6.1) 03/20/18 06:00 Hgb 9.3 g/dL (12.0-16.0) L 03/20/18 06:00 Hct 31.4 % (36.0-48.0) L 03/20/18 06:00 MCV 68.3 fl (80.0-105.0) L 03/20/18 06:00 MCH 20.2 pg (25.0-35.0) L 03/20/18 06:00 MCHC 29.6 g/dl (31.0-37.0) L 03/20/18 06:00 RDW 18.7 % (11.5-14.5) H 03/20/18 06:00 Plt Count 407 10^3/uL (120.0-450.0) 03/20/18 06:00 MPV 8.0 fl (7.0-11.0) 03/20/18 06:00 Gran % 44.8 % (50.0-68.0) L 03/17/18 21:20 Lymph % (Auto) 45.6 % (22.0-35.0) H 03/17/18 21:20 Shelby % (Auto) 7.1 % (1.0-6.0) H 03/17/18 21:20 Eos % (Auto) 2.1 % (1.5-5.0) 03/17/18 21:20 Baso % (Auto) 0.4 % (0.0-3.0) 03/17/18 21:20 Gran # 3.14 (1.4-6.5) 03/17/18 21:20 Lymph # (Auto) 3.2 (1.2-3.4) 03/17/18 21:20 Shelby # (Auto) 0.5 (0.1-0.6) 03/17/18 21:20 Eos # (Auto) 0.2 (0.0-0.7) 03/17/18 21:20 Baso # (Auto) 0.03 K/mm3 (0.0-2.0) 03/17/18 21:20 PT 12.5 SECONDS (9.4-12.5) 03/17/18 18:30 INR 1.09 (0.93-1.08) H 03/17/18 18:30 Sodium 139 mmol/L (132-148) 03/20/18 06:00 Potassium 3.7 mmol/L (3.6-5.0) 03/20/18 06:00 Chloride 106 mmol/L (98-107) 03/20/18 06:00 Carbon Dioxide 21 mmol/L (21-33) 03/20/18 06:00 Anion Gap 15 (10-20) 03/20/18 06:00 BUN 9 mg/dL (7-21) 03/20/18 06:00 Creatinine 0.6 mg/dl (0.7-1.2) L 03/20/18 06:00 Est GFR ( Amer) > 60 03/20/18 06:00 Est GFR (Non-Af Amer) > 60 03/20/18 06:00 POC Glucose (mg/dL) 81 mg/dL (65-110) 03/17/18 14:06 Random Glucose 98 mg/dL (70-110) 03/20/18 06:00 Calcium 8.5 mg/dL (8.4-10.5) 03/20/18 06:00 Phosphorus 3.8 mg/dL (2.5-4.5) 03/20/18 06:00 Magnesium 2.0 mg/dL (1.7-2.2) 03/20/18 06:00 Iron 25 ug/dL (45-180) L 03/17/18 14:00 TIBC 460 ug/dL (265-497) 03/17/18 14:00 % Saturation 6 % (20-55) L 03/17/18 14:00 Transferrin 350.57 mg/dL (206-381) 03/17/18 19:28 Ferritin 4.9 ng/mL 03/17/18 14:00 Total Bilirubin 0.2 mg/dL (0.2-1.3) 03/20/18 06:00 AST 27 U/L (14-36) 03/20/18 06:00 ALT 24 U/L (7-56) 03/20/18 06:00 Alkaline Phosphatase 80 U/L (38-126) 03/20/18 06:00 Total Protein 6.7 g/dL (5.8-8.3) 03/20/18 06:00 Albumin 3.8 g/dL (3.0-4.8) 03/20/18 06:00 Globulin 2.9 gm/dL 03/20/18 06:00 Albumin/Globulin Ratio 1.3 (1.1-1.8) 03/20/18 06:00 Vitamin B2 TNP 03/19/18 13:00 Vitamin B12 240 pg/mL (239-931) 03/17/18 14:00 25-OH Vitamin D Total < 12.8 NG/ML (30.0-100.0) L 03/19/18 12:30 Folate 12.7 ng/mL 03/17/18 14:00 Urine Color Yellow (YELLOW) 03/17/18 13:50 Urine Appearance Clear (CLEAR) 03/17/18 13:50 Urine pH 8.0 (4.7-8.0) 03/17/18 13:50 Ur Specific Creola 1.015 (1.005-1.035) 03/17/18 13:50 Urine Protein Negative mg/dL (<30 mg/dL) 03/17/18 13:50 Urine Glucose (UA) Negative mg/dL (NEGATIVE) 03/17/18 13:50 Urine Ketones Negative mg/dL (NEGATIVE) 03/17/18 13:50 Urine Blood Negative (NEGATIVE) 03/17/18 13:50 Urine Nitrate Negative (NEGATIVE) 03/17/18 13:50 Urine Bilirubin Negative (NEGATIVE) 03/17/18 13:50 Urine Urobilinogen 0.2 E.U./dL (<1 E.U./dL) 03/17/18 13:50 Ur Leukocyte Esterase Negative Salma/uL (NEGATIVE) 03/17/18 13:50 Urine HCG, Qual Negative (NEGATIVE) 03/17/18 13:50 Blood Type A POSITIVE 03/17/18 14:00 Antibody Screen Negative 03/17/18 14:00 Crossmatch See Detail 03/17/18 14:00 BBK History Checked Patient has bt 03/17/18 14:00 - Hospital Course Hospital Course: 43 year old female with past medical history of 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 Please see history and physical for details. Patient was found to have symptomatic anemia. Patient was transfused with 1 unit of pack red blood cells. H+H improved. Iron studies were completed, and patient was found to have a low iron <25. Patient advised to take [id number] iron supplement. Patient seen by GI, and EGD was perfomed. Per GI, findings on EGD showed 1cm hiatal hernia, non-bleeding duodenal ulcers, few small erosions found in gastric antrum , gastric body, and gastric fundus, biopsies were taken. Per GI, patient to continue daily protonix. Patient to follow-up with GI for biopsy results taken during EGD. Per GI, rule out celiac disease. Celiac panel ordered. Patient to follow-up outpatient on results with either primary care physician or GI. Patient was also found to have vitamin B12 deficiency. Patient to take Vitamin B12 supplement. Patient was found to have hypokalemia, which was resolved with oral potassium supplementation. Patient also found to have vitamin D deficiency <12.8, and was started on oral supplementation. Follow up with primary care physician for repeat blood work for Vitamin D and B-12 levels. Patient has history of hypertension and was continued on home medication. Aspirin was initially held for history of CVA due to possible GI bleed. This was ruled out. Patient to re-start aspirin medication, per GI. All symptoms improved upon discharged, and patient is cleared for discharge by all consultants. All instructions were discussed with the patient in detail. Patient both understands and agrees to all instructions. Please see chart for full details. Admitting diagnosis: Generalized weakness Discharge diagnoses: Generalized weakness likely secondary to acute on chronic iron deficiency anemia Cerebral vascular accident with residual right sided weakness/ parasthesias and expressive aphasia Hypertension Hypokalemia - resolved Vitamin D deficiency Vitamin B12 deficiency Iron deficiency Consultants called: Dr. Angie Boyer M.D. - Gastroenterology Medications upon discharge: Tamsulosin 0.4mg PO DAILY Fluoxetine HCL 20mg PO DAILY Memantine 10mg PO DAILY Losartan 100mg PO DAILY Alprazolam 0.25mg PO BID Aspirin 81mg PO DAILY - Rx Protonix 40mg PO DAILY - Rx Ergocalciferol 1 cap PO Q7D - Rx Cyanocobalamin (Vitamin B12) 100mcg PO DAILY This case was reviewed, and patient seen with, attending physician Radha Portillo D.O. PGY1 -- Logging Assistant -- Medicine Discharge Summary - Date & Time of H&P Date of H&P: 03/20/18 Time of H&P: 15:57 Discharge Exam - Head Exam Head Exam: ATRAUMATIC, NORMAL INSPECTION, NORMOCEPHALIC - Eye Exam Eye Exam: Normal appearance. absent: Conjunctival injection, Periorbital swelling, Scleral icterus Pupil Exam: NORMAL ACCOMODATION - ENT Exam ENT Exam: Mucous Membranes Moist, Normal Oropharynx - Neck Exam Neck exam: Full Rom, Normal Inspection - Respiratory Exam Respiratory Exam: NORMAL BREATHING PATTERN, UNREMARKABLE. absent: Accessory Muscle Use, Chest Wall Tenderness, Decreased Breath Sounds, Prolonged Expiratory Phase, Wheezes, Respiratory Distress, Stridor - Cardiovascular Exam Cardiovascular Exam: REGULAR RHYTHM. absent: Bradycardia, Tachycardia - GI/Abdominal Exam GI & Abdominal Exam: Normal Bowel Sounds, Unremarkable. absent: Bruit, Diminished Bowel Sounds, Distended, Hyperactive Bowel Sounds, Hypoactive Bowel Sounds, Mass, Pulsatile Mass - Extremities Exam Extremities exam: full ROM, normal inspection - Back Exam Back exam: FULL ROM, NORMAL INSPECTION. absent: muscle spasm, paraspinal tenderness, rash noted, tenderness - Neurological Exam Neurological exam: Alert, Oriented x3 Additional comments: positive for right upper extremity hemiparesis, positive dysarthria and expressive aphagia (chronic secondary to stroke) - Psychiatric Exam Psychiatric exam: Normal Affect, Normal Mood - Skin Skin Exam: Dry, Intact, Normal Color, Warm Discharge Plan - Discharge Medications Prescriptions: Cyanocobalamin [Vitamin B12 100 mcg Tab] 100 mcg PO DAILY #30 tab Ergocalciferol [Drisdol 50,000 Intl Units Cap] 1 cap PO Q7D #3 cap Pantoprazole Sodium [Protonix] 40 mg PO DAILY #30 ect - Follow Up Plan Condition: FAIR Disposition: HOME/ ROUTINE Patient education suggested?: Yes Instructions: Stroke, Gastritis, Anemia Caused by Low Iron, Adult (DC), Preventing Falls Additional Instructions: Continue previous home medications Please continue taking protonix daily Please take daily Iron supplement. This can be purchased [id number] Please continue taking vitamin D every Thursday, start on 03/27/2018. You will need repeat bloodwork with your PCP to recheck your B12 and Vitamin D levels. You had blood work done here called "celiac panel." Please follow up with Dr. Zuniga shaker washer, or with your primary care doctor for celiac panel results within 3-5 days Follow up with your primary care doctor within 3-5 days Follow up with shaker washer Dr. Efrain Levi. within 1-2 weeks Please return to ED if symptoms return Referrals: Merlin Zuniga MD [Medical Doctor] - Dallin Narvaez JD, MD [Primary Care Provider] - (follow 3-5 days) <Brenda Pickens - Last Filed: 03/21/18 12:17> Provider - Provider Date of Admission: 03/17/18 15:39 Attending physician: rBenda Pickens DO Primary care physician: Dallin Narvaez JD, MD Hospital Course - Lab Results Lab Results: Most Recent Lab Values WBC 9.7 10^3/ul (4.5-11.0) D 03/20/18 06:00 RBC 4.60 10^6/uL (3.5-6.1) 03/20/18 06:00 Hgb 9.3 g/dL (12.0-16.0) L 03/20/18 06:00 Hct 31.4 % (36.0-48.0) L 03/20/18 06:00 MCV 68.3 fl (80.0-105.0) L 03/20/18 06:00 MCH 20.2 pg (25.0-35.0) L 03/20/18 06:00 MCHC 29.6 g/dl (31.0-37.0) L 03/20/18 06:00 RDW 18.7 % (11.5-14.5) H 03/20/18 06:00 Plt Count 407 10^3/uL (120.0-450.0) 03/20/18 06:00 MPV 8.0 fl (7.0-11.0) 03/20/18 06:00 Gran % 44.8 % (50.0-68.0) L 03/17/18 21:20 Lymph % (Auto) 45.6 % (22.0-35.0) H 03/17/18 21:20 Shelby % (Auto) 7.1 % (1.0-6.0) H 03/17/18 21:20 Eos % (Auto) 2.1 % (1.5-5.0) 03/17/18 21:20 Baso % (Auto) 0.4 % (0.0-3.0) 03/17/18 21:20 Gran # 3.14 (1.4-6.5) 03/17/18 21:20 Lymph # (Auto) 3.2 (1.2-3.4) 03/17/18 21:20 Shelby # (Auto) 0.5 (0.1-0.6) 03/17/18 21:20 Eos # (Auto) 0.2 (0.0-0.7) 03/17/18 21:20 Baso # (Auto) 0.03 K/mm3 (0.0-2.0) 03/17/18 21:20 PT 12.5 SECONDS (9.4-12.5) 03/17/18 18:30 INR 1.09 (0.93-1.08) H 03/17/18 18:30 Sodium 139 mmol/L (132-148) 03/20/18 06:00 Potassium 3.7 mmol/L (3.6-5.0) 03/20/18 06:00 Chloride 106 mmol/L (98-107) 03/20/18 06:00 Carbon Dioxide 21 mmol/L (21-33) 03/20/18 06:00 Anion Gap 15 (10-20) 03/20/18 06:00 BUN 9 mg/dL (7-21) 03/20/18 06:00 Creatinine 0.6 mg/dl (0.7-1.2) L 03/20/18 06:00 Est GFR ( Amer) > 60 03/20/18 06:00 Est GFR (Non-Af Amer) > 60 03/20/18 06:00 POC Glucose (mg/dL) 81 mg/dL (65-110) 03/17/18 14:06 Random Glucose 98 mg/dL (70-110) 03/20/18 06:00 Calcium 8.5 mg/dL (8.4-10.5) 03/20/18 06:00 Phosphorus 3.8 mg/dL (2.5-4.5) 03/20/18 06:00 Magnesium 2.0 mg/dL (1.7-2.2) 03/20/18 06:00 Iron 25 ug/dL (45-180) L 03/17/18 14:00 TIBC 460 ug/dL (265-497) 03/17/18 14:00 % Saturation 6 % (20-55) L 03/17/18 14:00 Transferrin 350.57 mg/dL (206-381) 03/17/18 19:28 Ferritin 4.9 ng/mL 03/17/18 14:00 Total Bilirubin 0.2 mg/dL (0.2-1.3) 03/20/18 06:00 AST 27 U/L (14-36) 03/20/18 06:00 ALT 24 U/L (7-56) 03/20/18 06:00 Alkaline Phosphatase 80 U/L (38-126) 03/20/18 06:00 Total Protein 6.7 g/dL (5.8-8.3) 03/20/18 06:00 Albumin 3.8 g/dL (3.0-4.8) 03/20/18 06:00 Globulin 2.9 gm/dL 03/20/18 06:00 Albumin/Globulin Ratio 1.3 (1.1-1.8) 03/20/18 06:00 Vitamin B2 TNP 03/19/18 13:00 Vitamin B12 240 pg/mL (239-931) 03/17/18 14:00 25-OH Vitamin D Total < 12.8 NG/ML (30.0-100.0) L 03/19/18 12:30 Folate 12.7 ng/mL 03/17/18 14:00 Urine Color Yellow (YELLOW) 03/17/18 13:50 Urine Appearance Clear (CLEAR) 03/17/18 13:50 Urine pH 8.0 (4.7-8.0) 03/17/18 13:50 Ur Specific [place] 1.015 (1.005-1.035) 03/17/18 13:50 Urine Protein Negative mg/dL (<30 mg/dL) 03/17/18 13:50 Urine Glucose (UA) Negative mg/dL (NEGATIVE) 03/17/18 13:50 Urine Ketones Negative mg/dL (NEGATIVE) 03/17/18 13:50 Urine Blood Negative (NEGATIVE) 03/17/18 13:50 Urine Nitrate Negative (NEGATIVE) 03/17/18 13:50 Urine Bilirubin Negative (NEGATIVE) 03/17/18 13:50 Urine Urobilinogen 0.2 E.U./dL (<1 E.U./dL) 03/17/18 13:50 Ur Leukocyte Esterase Negative Salma/uL (NEGATIVE) 03/17/18 13:50 Urine HCG, Qual Negative (NEGATIVE) 03/17/18 13:50 Blood Type A POSITIVE 03/17/18 14:00 Antibody Screen Negative 03/17/18 14:00 Crossmatch See Detail 03/17/18 14:00 BBK History Checked Patient has bt 03/17/18 14:00 Attending/Attestation - Attestation I have personally seen and examined this patient.: Yes I have fully participated in the care of the patient.: Yes I have reviewed all pertinent clinical information, including history, physical exam and plan: Yes Notes (Text): Patient seen and examined by me at 10:05 AM 03/20/18 with resident at bedside. Case including discharge planning discussed with resident. Agree with above with following additions/changes. Patient is a 43-year-old female with past medical history significant for anemia , CVA with right-sided residual weakness and expressive aphasia, and essential hypertension that presented to the emergency room with near syncope and lightheadedness as well as generalized weakness. Patient was found have symptomatic anemia. Patient was given 1 unit of packed red blood cells in the emergency room. Symptoms did not improve. Patient evaluated by GI. Patient had EGD which showed hiatal hernia, chronic gastritis, erosive gastropathy, chronic duodenitis, and multiple nonbleeding duodenal ulcers. Per GI patient to continue with PPI once a day. Patient to avoid NSAIDs. Patient cleared to continue on aspirin by GI. Patient was also found to be vitamin D deficient as well as B12 deficient. Patient was started on oral supplementation. Patient's generalized weakness and fatigue improved. She was tolerating diet well. Patient was cleared for discharge by gastroenterology. Celiac panel was ordered prior to discharge for outpatient follow-up as per GI. Patient also found to be iron deficient. Patient advised to take [id number] supplements. All symptoms improved upon discharge. Patient discharged home. Consultants called: Gastroenterology, Dr. Melo Diagnostic imaging: Chest x-ray on 03/17/2018 per radiology showed no active disease. Physical exam: Gen: Patient is awake and alert lying in bed in no acute distress HEENT: Normocephalic atraumatic. extraocular muscles intact. Pupils equal and reactive. No conjunctival pallor noted. Hearing grossly intact. Ears and nose externally unremarkable. Oropharynx is pink and moist. No pharyngeal erythema or exudate appreciated. Neck is supple. Pulmonary: Normal respiratory effort. No rhonchi, rales, or wheezing appreciated Cardiovascular: Normal rhythm. Normal S1 and S2. No murmurs or gallops appreciated. Gastrointestinal: Soft, nontender, nondistended. Positive bowel sounds all 4 quadrants. No guarding. Musculoskeletal: Positive for right upper extremity hemiparesis. Vascular: 2+ peripheral pulses upper and lower extremities Central nervous system: AAO 3. Positive right upper extremity hemiparesis. Positive dysarthria and expressive aphasia. This is secondary to a previous stroke and is chronic. Dermatologic: Skin warm and dry Follow-up instructions: Follow-up with primary care doctor within 3-[address] Melo within 1-2 weeks. You'll need repeat blood work with her primary care doctor to recheck a B12 and vitamin D levels. You will need to follow-up with either your primary care doctor or shaker washer for results of celiac panel that was ordered here prior to discharge. Continue taking Protonix daily. Patient to take iron supplement daily this can be purchased [id number]. All instructions were explained to the patient in detail. Patient both understands and agrees to all instructions. Please see chart for full details. Time spent on discharging patient including chart review, medication reconciliation, discussion with the patient, medical registrar, consultants, and nursing staff was approximately 40 minutes. 03/21/18 12:13
[2018-03-20 16:27] VITALS: BP 142/94; PULSE 83; RESP 18; TEMP 99; O2SAT 100
== END 2018-03-20 18:45 | disposition home health service (06) | DRG 395 ==
LOC: ED 13:01 → ERH 15:39 → 5RNO 17:25
PROVIDERS: ADMIT Hospitalist; ATTEND Hospitalist
PROC: 30233N1 Transfusion of Nonautologous Red Blood Cells into Peripheral Vein, Percutaneous Approach (ICD-10-PCS; 2018-03-17)
PROC: 0DB68ZX Excision of Stomach, Via Natural or Artificial Opening Endoscopic, Diagnostic (ICD-10-PCS; principal; 2018-03-19 17:00)
DX: D50.9 Iron deficiency anemia, unspecified (principal); E53.8 Deficiency of other specified B group vitamins; E87.6 Hypokalemia; I10 Essential (primary) hypertension; K26.9 Duodenal ulcer, unspecified as acute or chronic, without hemorrhage or perforation; K29.50 Unspecified chronic gastritis without bleeding; K29.80 Duodenitis without bleeding; K44.9 Diaphragmatic hernia without obstruction or gangrene; K31.9 Disease of stomach and duodenum, unspecified; B96.81 Helicobacter pylori [H. pylori] as the cause of diseases classified elsewhere; F12.10 Cannabis abuse, uncomplicated; E55.9 Vitamin D deficiency, unspecified; F31.9 Bipolar disorder, unspecified; F41.9 Anxiety disorder, unspecified; L29.9 Pruritus, unspecified; I69.320 Aphasia following cerebral infarction; I69.351 Hemiplegia and hemiparesis following cerebral infarction affecting right dominant side; Z82.5 Family history of asthma and other chronic lower respiratory diseases; Z82.3 Family history of stroke; Z87.11 Personal history of peptic ulcer disease; Z87.891 Personal history of nicotine dependence

== ENCOUNTER 2018-04-26 19:07 | Inpatient (IN) | payer OTHER ==
[2018-04-26] MEDS ORDERED: Sodium Chloride 0.9% 1,000 ML IV STA (19:51)
--- NOTE | 2018-04-26 19:58 | ED PDOC ---
Arrival/HPI <Bhargavi,Abhishek - Last Filed: 04/26/18 21:50> - General Historian: Patient <Mahin Hartmann - Last Filed: 04/27/18 14:35> - General Time Seen by Provider: 04/26/18 19:23 - History of Present Illness Narrative History of Present Illness (Text): 04/26/18 19:49 43 y/o female, pmh including gastric ulcer/Menorrhagia/chronic anemia/rt. 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 Pts. stated that she she received a call by the own doctor, told her that she has low hemoglobin but didn't say how low, stated that she has been feeling generalized fatigue and tired for weakness, no night sweat, no stool discoloration, no abdominal pain, no numbness or tingling, no palpitation , no other medical or psychological complaints. (Mahin Hartmann) Past Medical History - Provider Review Nursing Documentation Reviewed: Yes - Past History Past History: Non-Contributing - Infectious Disease Hx of Infectious Diseases: None - Tetanus Immunization Tetanus Immunization: Unknown - Cardiac Hx Hypertension: Yes - Pulmonary Hx Respiratory Disorders: No - Neurological HX Cerebrovascular Accident: Yes (right sided weakness) - HEENT Hx HEENT Disorder: No - Renal Hx Renal Disorder: No - Endocrine/Metabolic Hx Endocrine Disorders: No - Hematological/Oncological Hx Blood Transfusions: Yes Hx Blood Transfusion Reaction: No - Integumentary Hx Dermatological Disorder: No - Musculoskeletal/Rheumatological Hx Arthritis: Yes - Gastrointestinal Hx Gastrointestinal Disorders: Yes (H/O GT PLACEMENT) Hx Gall Bladder Disease: Yes (CHOLECYSTECTOMY) Other/Comment: GI BLEED - Genitourinary/Gynecological Hx Genitourinary Disorders: No - Psychiatric Hx Psychophysiologic Disorder: Yes Hx Anxiety: Yes Hx Bipolar Disorder: Yes Hx Depression: Yes Hx Substance Use: No - Surgical History Hx Cholecystectomy: Yes - Anesthesia Hx Anesthesia: Yes Hx Anesthesia Reactions: No Hx Malignant Hyperthermia: No - Suicidal Assessment Feels Threatened In Home Enviroment: No <Mahin Hartmann - Last Filed: 04/27/18 14:35> Family/Social History - Physician Review Nursing Documentation Reviewed: Yes Family/Social History: Unknown Family HX Smoking Status: Light Smoker < 10 Cigarettes Daily Hx Alcohol Use: Yes (ocasional) Hx Substance Use: No Hx Substance Use Treatment: No <Mahin Hartmann - Last Filed: 04/27/18 14:35> Allergies/Home Meds <Abhishek Burk - Last Filed: 04/26/18 21:50> <Mahin Hartmann - Last Filed: 04/27/18 14:35> Allergies/Adverse Reactions: Allergies No Known Allergies Allergy (Verified 11/07/17 13:48) Home Medications: Home Meds Medication Instructions Recorded Confirmed Alprazolam 0.25 mg PO BID 04/10/17 04/27/18 Losartan [Cozaar] 100 mg PO DAILY 03/17/18 04/27/18 Fluoxetine HCl 20 mg PO DAILY 03/20/18 04/27/18 Memantine [Namenda] 10 mg PO DAILY 03/20/18 04/27/18 Amlodipine Besylate 5 mg PO DAILY 04/27/18 04/27/18 Aspirin [Aspirin EC] 325 mg PO DAILY 04/27/18 04/27/18 Docusate Sodium [Stool Softener] 100 mg PO DAILY 04/27/18 04/27/18 Vitamin B-12 100 mcg PO DAILY 04/27/18 04/27/18 oxyCODONE/Acetaminophen [Percocet 1 tab PO Q6 PRN 04/27/18 04/27/18 5/325 mg Tab] Review of Systems - Review of Systems Constitutional: Fatigue. absent: Fevers Eyes: absent: Vision Changes ENT: absent: Hearing Changes Respiratory: absent: SOB, Cough Cardiovascular: absent: Chest Pain Gastrointestinal: absent: Abdominal Pain, Nausea, Vomiting Musculoskeletal: absent: Arthralgias, Back Pain Skin: absent: Rash, Pruritis Neurological: absent: Headache, Dizziness Psychiatric: absent: Anxiety, Depression, Suicidal Ideation <Mahin Hartmann - Last Filed: 04/27/18 14:35> Physical Exam Vital Signs Reviewed: Yes Temperature: Afebrile Blood Pressure: Normal Pulse: Regular Respiratory Rate: Normal Appearance: Positive for: Well-Appearing, Non-Toxic, Comfortable Pain Distress: None Mental Status: Positive for: Alert and Oriented X 3 - Systems Exam Head: Present: Atraumatic, Normocephalic Pupils: Present: PERRL Extroacular Muscles: Present: EOMI Conjunctiva: Present: Normal Mouth: Present: Moist Mucous Membranes Neck: Present: Normal Range of Motion Respiratory/Chest: Present: Clear to Auscultation, Good Air Exchange. No: Respiratory Distress, Accessory Muscle Use Cardiovascular: Present: Regular Rate and Rhythm, Normal S1, S2. No: Murmurs Abdomen: No: Tenderness, Distention, Peritoneal Signs Rectal: Present: Normal Rectal Tone, Other (Female Hotel Controller: CAMERA PERSONSHANIKA Rosenberg.. Guiac is positive. ). No: Occult Blood, Rectal Tenderness, Gross Blood , Melena, Hemorrhoids, Fissures, Nodule/Mass/Lesions Back: Present: Normal Inspection Upper Extremity: Present: Normal Inspection. No: Cyanosis, Edema Lower Extremity: Present: Normal Inspection. No: Edema Neurological: Present: GCS=15, Speech Normal, Memory Normal, Other (rt. sided residual weakness from previous CVA) Skin: Present: Warm, Dry, Normal Color. No: Rashes Psychiatric: Present: Alert, Oriented x 3, Normal Insight, Normal Concentration <Mahin Hartmann - Last Filed: 04/27/18 14:35> Vital Signs Temp Pulse Resp BP Pulse Ox 04/27/18 00:41 82 20 97 04/27/18 00:13 98.4 F 76 20 141/86 04/26/18 23:28 98.3 F 66 16 139/94 H 04/26/18 23:08 98.3 F 69 20 139/88 04/26/18 19:49 98.5 F 75 20 128/72 98 Medical Decision Making <bAhishek Burk - Last Filed: 04/26/18 21:50> - Critical Care Critical Care Minutes: 30 minutes Critical Care Time: Unstable - Lab Interpretations I have reviewed the lab results: Yes - RAD Interpretation Planishing Press Operator: Radiologist - EKG Interpretation Interpreted by ED Physician: Yes Type: 12 lead EKG Comparison: Com.w/previous EKG <Mahin Hartmann - Last Filed: 04/27/18 14:35> ED Course and Treatment: 04/26/18 20:00 Differential: Anemia vs. Dehydration vs. UTI vs. pneumonia -labs/ua -cxr -ekg -IVF -Observe and reassess 04/26/18 21:35 -Urine hcg is negative -Guaiac is positive. -EKG: NSR @ 66 BPM, no ST elevation or depression, chronic T wave inversion, compared with previous ekg. -Chest xray show no active disease -labs show no acute findings except hgb 7.7 from 9.3 (2 units ordered), platete 704 -UA ordered and pending result -2 units of PRBC ordered for the patient, IV protonix ordered. -Paging the medical consultant and the admitting team for admission. 04/26/18 21:45 -I spoke to Dr. Syed Mg and the medical consultant, discussed about the case, agreed to admit the patient to continue the care -I discussed with Dr. Burk, he will put in the admission order. (Mahin Hartmann) - Critical Care Narrative Critical Care (Text): 04/26/18 21:37 Anemia/GI bleed/school lunch monitor/blood transfusion (Mahin Hartmann) - Lab Interpretations Lab Results: 04/26/18 20:20 04/26/18 20:20 Lab Results 04/26/18 20:30: Blood Type A POSITIVE, Antibody Screen Negative, Crossmatch See Detail, BBK History Checked Patient has bt 04/26/18 20:20: Retic Count 0.64 04/26/18 20:20: Ferritin 4.2, Vitamin B12 336, Folate 7.7 04/26/18 20:20: Transferrin 327.67 04/26/18 20:20: Iron 14 L, TIBC 414, % Saturation 3 L 04/26/18 20:20: Sodium 143, Potassium 3.8, Chloride 108 H, Carbon Dioxide 26, Anion Gap 13, BUN 16, Creatinine 0.6 L, Est GFR ( Amer) > 60, Est GFR ( Non-Af Amer) > 60, Random Glucose 113 H, Calcium 8.4, Total Bilirubin < 0.1 L, AST 36 D, ALT 25, Alkaline Phosphatase 62, Total Protein 6.6, Albumin 3.7, Globulin 2.9, Albumin/Globulin Ratio 1.3 04/26/18 20:20: PT 12.3, INR 1.08, APTT 30.3 04/26/18 20:20: WBC 6.5 D, RBC 3.86, Hgb 7.7 L, Hct 26.2 L, MCV 67.9 L, MCH 19.9 L, MCHC 29.4 L, RDW 20.3 H, Plt Count 704 H* D, MPV 8.2, Gran % 62.6, Lymph % (Auto) 31.0, [place] % (Auto) 4.6, Eos % (Auto) 1.5, Baso % (Auto) 0.3, Gran # 4.07, Lymph # (Auto) 2.0, [place] # (Auto) 0.3, Eos # (Auto) 0.1, Baso # ( Auto) 0.02 - RAD Interpretation Radiology Orders: 04/26/18 19:51 CHEST PORTABLE [RAD] Stat 04/26/18 19:51 CHEST PORTABLE [RAD] Stat no active disease (Hartmann,Mahin Bailey) - Medication Orders Current Medication Orders: Alprazolam (Xanax) 0.25 mg PO BID [facility] PRN Reason: Protocol Last Admin: 04/27/18 12:38 Dose: 0.25 mg Behavioural Document 04/27/18 12:38 [facility] (Rec: 04/27/18 12:38 [facility] [id number]) Maintenance Maintenance Dose Yes Nonmedicinal Nonmedicinal Interventions Redirect Behavior Behavior for Medication: Anxiety Amoxicillin (Amoxil 500 Mg Cap) 1,000 mg PO BID TIA PRN Reason: Protocol Stop: 05/11/18 10:01 Last Admin: 04/27/18 12:38 Dose: 1,000 mg Clarithromycin (Biaxin Filmtab) 500 mg PO Q12 TIA PRN Reason: Protocol Stop: 05/11/18 10:01 Last Admin: 04/27/18 12:36 Dose: 500 mg Cyanocobalamin (Vitamin B12 100 Mcg Tab) 100 mcg PO DAILY [facility] Last Admin: 04/27/18 12:38 Dose: 100 mcg Ergocalciferol (Drisdol 50,000 Intl Units Cap) 1 cap PO Q7D [facility] Last Admin: 04/26/18 23:30 Dose: 1 cap Fluoxetine HCl (Prozac) 20 mg PO DAILY [facility] Last Admin: 04/27/18 12:36 Dose: 20 mg Sodium Chloride (Sodium Chloride 0.9%) 1,000 mls @ 100 mls/hr IV .Q10H [facility] Last Admin: 04/27/18 01:41 Dose: Losartan Potassium (Cozaar) 100 mg PO DAILY [facility] Last Admin: 04/27/18 12:36 Dose: 100 mg Memantine (Namenda) 10 mg PO DAILY [facility] Last Admin: 04/27/18 12:38 Dose: 10 mg Pantoprazole Sodium (Protonix Ec Tab) 40 mg PO 0600 TIA Stop: 05/12/18 06:01 Tamsulosin HCl (Flomax) 0.4 mg PO DAILY TIA Last Admin: 04/27/18 12:36 Dose: 0.4 mg Discontinued Medications Aspirin (Aspirin) 325 mg PO STAT STA Stop: 04/26/18 21:01 Last Admin: 04/26/18 21:56 Dose: 325 mg Sodium Chloride (Sodium Chloride 0.9%) 1,000 mls @ 999 mls/hr IV .Q1H1M STA Stop: 04/26/18 20:51 Last Admin: 04/26/18 21:56 Dose: 999 mls/hr eMAR Start Stop Document 04/26/18 21:56 SS (Rec: 04/26/18 21:56 SS [id number]) Intravenous Solution Start Date 04/26/18 Start Time 21:22 End Date 04/26/18 End time 22:22 Total Infusion Time 60 Oxycodone/Acetaminophen (Percocet 5/325 Mg Tab) 1 tab PO STAT STA Stop: 04/27/18 03:27 Last Admin: 04/27/18 04:52 Dose: 1 tab [facility] Pain Assessment Document 04/27/18 04:52 FG (Rec: 04/27/18 04:53 FG [id number]) Pain Reassessment Is this a pain reassessment? Yes Sleep Is patient sleeping during reassessment? No Presence of Pain Presence of Pain Yes Pain Scale Used Pain Scale Used Numeric Location Pain Location Body Site Jaw Description Description Constant Intensity of Pain at present 7 Pain Behavior Moaning Alleviating Factors/Management Medication Techniques Alleviating Factors Medication Re-Assess: [facility] Pain Assessment Document 04/27/18 05:52 FG (Rec: 04/27/18 06:18 FG [id number]) Pain Reassessment Is this a pain reassessment? Yes Sleep Is patient sleeping during reassessment? No Presence of Pain Presence of Pain Yes Pain Scale Used Pain Scale Used Numeric Location Upper or Lower Upper Pain Location Body Site Jaw Description Description Constant Intensity of Pain at present 3 Pantoprazole Sodium (Protonix Inj) 40 mg IVP STAT STA Stop: 04/26/18 21:31 Last Admin: 04/26/18 21:57 Dose: 40 mg IVP Administration Document 04/26/18 21:57 SS (Rec: 04/26/18 21:57 SS [id number]) Charges for Administration # of IVP Administrations 1 - PA / VACUUM METALIZING SUPERVISOR / Resident Statement IZZY has reviewed & agrees with the documentation as recorded. IZZY has examined the patient and agrees with the treatment plan. <Abhishek Burk - Last Filed: 04/26/18 21:50> - PA / VACUUM METALIZING SUPERVISOR / Resident Statement IZZY has reviewed & agrees with the documentation as recorded. IZZY has examined the patient and agrees with the treatment plan. <Mahin Hartmann - Last Filed: 04/27/18 14:35> Disposition/Present on Arrival <Abhishek Burk - Last Filed: 04/26/18 21:50> - Present on Arrival Any Indicators Present on Arrival: No History of DVT/PE: No History of Uncontrolled Diabetes: No Urinary Catheter: No History of Decub. Ulcer: No History Surgical Site Infection Following: None - Disposition Have Diagnosis and Disposition been Completed?: Yes Disposition Time: 21:37 Patient Plan: Admission, Telemetry <Mahin Hartmann - Last Filed: 04/27/18 14:35> - Disposition Diagnosis: GI bleed, Symptomatic anemia, Thrombocytosis Disposition: HOSPITALIZED Patient Problems: Current Active Problems Problem Status Onset GI (gastrointestinal bleed) Acute Symptomatic anemia Acute Thrombocytosis Acute Condition: GUARDED
[2018-04-26 20:53] LABS: BASO # 0.02 K/mm3 (0.0-2.0); BASO % 0.3 % (0.0-3.0); EOS # 0.1 (0.0-0.7); EOS % 1.5 % (1.5-5.0); GRAN # 4.07 (1.4-6.5); GRAN % 62.6 % (50.0-68.0); HEMOGLOBIN 7.7 g/dL (12.0-16.0); MEAN CELL VOLUME 67.9 fl (80.0-105.0); MEAN CORPUSCULAR HEMOGLOBIN 19.9 pg (25.0-35.0); MEAN CORPUSCULAR HGB CONC 29.4 g/dl (31.0-37.0); MEAN PLATELET VOLUME 8.2 fl (7.0-11.0); MONO # 0.3 (0.1-0.6); MONO % 4.6 % (1.0-6.0); RBC 3.86 10^6/uL (3.5-6.1); RED CELL DISTRIBUTION WIDTH 20.3 % (11.5-14.5); WHITE BLOOD COUNT 6.5 10^3/ul (4.5-11.0)
[2018-04-26 20:54] LABS: IRON 14 ug/dL (45-180)
[2018-04-26 20:55] LABS: ALB/GLOB RATIO 1.3 (1.1-1.8); ALBUMIN 3.7 g/dL (3.0-4.8); ALT/SGPT 25 U/L (7-56); AST/SGOT 36 U/L (14-36); BLOOD UREA NITROGEN 16 mg/dL (7-21); CALCIUM 8.4 mg/dL (8.4-10.5); GFR AFRICAN-AMERICAN > 60; GFR NON-AFRICAN AMERICAN > 60
[2018-04-26 20:57] LABS: INR 1.08; PARTIAL THROMBOPLASTIN TIME 30.3 Seconds (25.1-36.5); PROTHROMBIN TIME 12.3 SECONDS (9.4-12.5)
[2018-04-26 21:03] LABS: % IRON SATURATION 3 % (20-55); TOTAL IRON BINDING CAPACITY 414 ug/dL (265-497)
[2018-04-26] MEDS ORDERED: Ergocalciferol 50,000 Intl Units Cap PO SCH (23:30)
--- NOTE | 2018-04-26 23:38 | CP.PCM.HP ---
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 Patient's partner reports that patient received a call from her PMD that said her blood count was low based on previous bloodwork. No numerical value or name was provided. Patient reports residual weakness on her R side from the CVA in 12/29, so patient in unable to ambulate with a cane more than half a block at a time. Patient has regular menses that are heavy (15 pads daily ) over the course of 7 days, the most recent of which completed 2 days ago. Patient states that her stool has been brown not black. Patient reports poor oral intake 2/2 dental caries and a 5 lb weight loss in 2 months. Patient admits to weakness and dizziness, but denies fevers, chills, chest pain, shortness of breath, cough, diarrhea, nausea, or vomiting. Patient is a poor historian. In Ed, hemoglobin was found to be 7.7 and two units of PRBC was ordered. Patient was hemodynamically stable. 12 point ROS obtained and negative, except as per HPI. PMH: Anemia, CVA with right sided residual weakness, HTN PSH: Cholecystectomy All: NKDA FHx: HTN SHx: Denies alcohol, Admits to tobacco 1/2 pk per day for 6 months, marijuana daily Meds: ASA 325 Memantine HCL 10mg daily ASA 325mg daily Xanax 0.25mg BID Losartan 100mg daily Vit B12 Docusate 100 Flomax 0.4 Fluoxetine 20 Pantoprazole 40mg daily PMD: Dr. Narvaez Echo Technician: Dr. Larios Present on Admission - Present on Admission Any Indicators Present on Admission: No Past Patient History - Infectious Disease Hx of Infectious Diseases: None - Tetanus Immunizations Tetanus Immunization: Unknown - Past Social History Smoking Status: Light Smoker < 10 Cigarettes Daily - CARDIAC Hx Hypertension: Yes - PULMONARY Hx Respiratory Disorders: No - NEUROLOGICAL HX Cerebrovascular Accident: Yes (right sided weakness) - HEENT Hx HEENT Problems: No - RENAL Hx Chronic Kidney Disease: No - ENDOCRINE/METABOLIC Hx Endocrine Disorders: No - HEMATOLOGICAL/ONCOLOGICAL Hx Blood Transfusions: Yes Hx Blood Transfusion Reaction: No - INTEGUMENTARY Hx Dermatological Problems: No - MUSCULOSKELETAL/RHEUMATOLOGICAL Hx Arthritis: Yes - GASTROINTESTINAL Hx Gastrointestinal Disorders: Yes (H/O GT PLACEMENT) Hx Gall Bladder Disease: Yes (CHOLECYSTECTOMY) Other/Comment: GI BLEED - GENITOURINARY/GYNECOLOGICAL Hx Genitourinary Disorders: No - PSYCHIATRIC Hx Psychophysiologic Disorder: Yes Hx Anxiety: Yes Hx Bipolar Disorder: Yes Hx Depression: Yes Hx Substance Use: No - SURGICAL HISTORY Hx Cholecystectomy: Yes - ANESTHESIA Hx Anesthesia: Yes Hx Anesthesia Reactions: No Hx Malignant Hyperthermia: No Meds Home Medications: Home Medication List Medication Instructions Recorded Confirmed Type Amoxicillin [Amoxil 500 mg Cap] 1,000 mg PO BID 13 Days #26 cap 04/28/18 Rx Clarithromycin [Biaxin Filmtab] 500 mg PO Q12 13 Days #26 tab 04/28/18 Rx Cyanocobalamin [Vitamin B12 100 100 mcg PO DAILY tab 04/28/18 Rx mcg Tab] Pantoprazole Sodium [Protonix] 40 mg PO DAILY 13 Days #13 ect 04/28/18 Rx Allergies/Adverse Reactions: Allergies Allergy/AdvReac Type Severity Reaction Status Date / Time No Known Allergies Allergy Verified 11/07/17 13:48 Physical Exam - Additional Findings Additional findings: - Constitutional Appears: Well, No Acute Distress - Head Exam Head Exam: ATRAUMATIC, NORMAL INSPECTION - Eye Exam Eye Exam: Injected corneas, no icterus - ENT Exam ENT Exam: Mucous Membranes Moist - Respiratory Exam Respiratory Exam: Clear to Auscultation Bilateral, NORMAL BREATHING PATTERN - Cardiovascular Exam Cardiovascular Exam: REGULAR RHYTHM, +S1, +S2 - GI/Abdominal Exam GI & Abdominal Exam: Normal Bowel Sounds, Soft, Tenderness - Rectal EXAM Rectal: Rectal performed negative for overt blood - Extremities Exam Extremities exam: Positive for: normal inspection - Neurological Exam Neurological exam: Alert & Oriented x3 - Psychiatric Exam Psychiatric exam: Anxious, Normal Affect - Skin Skin Exam: Pallor Results - Vital Signs Recent Vital Signs: Last Vital Signs Temp 98.3 F 04/26/18 23:08 Pulse 69 04/26/18 23:08 Resp 20 04/26/18 23:08 BP 139/88 04/26/18 23:08 Pulse Ox 98 04/26/18 19:49 - Labs Result Diagrams: 04/26/18 20:20 04/26/18 20:20 Labs: Laboratory Results - last 24 hr 04/26/18 04/26/18 04/26/18 20:20 20:20 20:20 WBC 6.5 D RBC 3.86 Hgb 7.7 L Hct 26.2 L MCV 67.9 L MCH 19.9 L MCHC 29.4 L RDW 20.3 H Plt Count 704 H* D MPV 8.2 Gran % 62.6 Lymph % (Auto) 31.0 [place] % (Auto) 4.6 Eos % (Auto) 1.5 Baso % (Auto) 0.3 Gran # 4.07 Lymph # (Auto) 2.0 [place] # (Auto) 0.3 Eos # (Auto) 0.1 Baso # (Auto) 0.02 PT 12.3 INR 1.08 APTT 30.3 Sodium 143 Potassium 3.8 Chloride 108 H Carbon Dioxide 26 Anion Gap 13 BUN 16 Creatinine 0.6 L Est GFR ( Amer) > 60 Est GFR (Non-Af Amer) > 60 Random Glucose 113 H Calcium 8.4 Iron TIBC % Saturation Total Bilirubin < 0.1 L AST 36 D ALT 25 Alkaline Phosphatase 62 Total Protein 6.6 Albumin 3.7 Globulin 2.9 Albumin/Globulin Ratio 1.3 Blood Type Antibody Screen Crossmatch BBK History Checked 04/26/18 04/26/18 20:20 20:30 WBC RBC Hgb Hct MCV MCH MCHC RDW Plt Count MPV Gran % Lymph % (Auto) [place] % (Auto) Eos % (Auto) Baso % (Auto) Gran # Lymph # (Auto) [place] # (Auto) Eos # (Auto) Baso # (Auto) PT INR APTT Sodium Potassium Chloride Carbon Dioxide Anion Gap BUN Creatinine Est GFR ( Amer) Est GFR (Non-Af Amer) Random Glucose Calcium Iron 14 L TIBC 414 % Saturation 3 L Total Bilirubin AST ALT Alkaline Phosphatase Total Protein Albumin Globulin Albumin/Globulin Ratio Blood Type A POSITIVE Antibody Screen Negative Crossmatch See Detail BBK History Checked Patient has bt Assessment & Plan - Assessment and Plan (Free Text) Assessment: Assessment: Patient is a 43 year old female with past medical history of mennorhagia, depression, bipolar, chronic anemia, PUD diagnosed in 03/31, right-sided residual weakness due to CVA 12/29 s/p G-tube which was removed in 04/30, and HTN who presents to the Emergency department complaining of fatigue and generalized weakness. Plan: Microcytic Hypochromic Anemia 2/2 Mennorhagia vs Poor nutritional status vs PUD Fe panel (Fe 14, TIBC 414, % Saturation 3) and normal Coag studies revel Fe deficiency anemia f/u Transferrin, folate, b12, retic count, ferritin PUD diagnosed a few weeks ago with endoscopic biopsies, findings on EGD showed 1cm hiatal hernia, non-bleeding duodenal ulcers, few small erosions found in gastric antrum, gastric body, and gastric fundus, biopsies were taken. CXR was unremarkable Tbili < 0.1- likely a lower GI bleed Hbg 7.7 on admission, 9.3 upon most recent discharge 5 weeks ago Hemodynamically stable, no clear source of bleed. Vital signs stable Type and Screen in ED. Currently being tranfused 1 unit PRBC. A second unit is available. f/u CBC one hour after completion Peripheral smear ordered, which showed platelet clumping and pale hypochromic cells f/u AM labs Home ASA being held d/t possible bleed IVF NS @100 HHD Protonix 40 IVP f/u pelvic U/S Reactive Thrombocytosis PLT 704 ASA given in ED Will hold home ASA due to likely GI bleed Marijuana Use f/u UDS and UA Depression/Anxiety c/w home meds VIT D Deficiency c/w home meds HTN: c/w home meds GI/DVT PPX: Protonix, SCD's Disposition: spoke to sister Nicol [phone] on phone with patient's permission Patient seen, case reviewed, and plan discussed with Dr. Mg. Julio Chacon, PGY-1 <Norma Mg N - Last Filed: 04/29/18 20:13> Results - Vital Signs Recent Vital Signs: Last Vital Signs Temp 97.7 F 04/28/18 14:00 Pulse 65 04/28/18 14:00 Resp 18 04/28/18 14:00 BP 135/85 04/28/18 14:00 Pulse Ox 95 04/28/18 14:00 - Labs Result Diagrams: 04/28/18 06:45 04/28/18 06:45
[2018-04-27] MEDS: Sodium Chloride 0.9% 1,000 ML IV SCH ×2 (01:41→14:02)
[2018-04-27] MEDS ORDERED: Oxycodone/Acetaminophen 5/325 mg Tab PO STA (03:26)
[2018-04-27 04:51] VITALS: BMI 20.2
[2018-04-27 08:12] LABS: URINE BILIRUBIN NEGATIVE (NEGATIVE); URINE BLOOD NEGATIVE (NEGATIVE); URINE GLUCOSE (UA) NEGATIVE (NEGATIVE); URINE LEUKOCYTE ESTERASE NEGATIVE Leu/uL (NEGATIVE); URINE PROTEIN NEGATIVE mg/dL (<30 mg/dL); URINE UROBILINOGEN 0.2 E.U./dL (<1 E.U./dL)
[2018-04-27 08:14] LABS: BASO # 0.04 K/mm3 (0.0-2.0); BASO % 0.4 % (0.0-3.0); EOS # 0.2 (0.0-0.7); GRAN # 5.55 (1.4-6.5); GRAN % 60.3 % (50.0-68.0); HEMOGLOBIN 10.4 g/dL (12.0-16.0); MEAN CELL VOLUME 70.3 fl (80.0-105.0); MEAN CORPUSCULAR HGB CONC 31.3 g/dl (31.0-37.0); MEAN PLATELET VOLUME 8.2 fl (7.0-11.0); MONO # 0.5 (0.1-0.6); MONO % 5.3 % (1.0-6.0); RBC 4.72 10^6/uL (3.5-6.1); RED CELL DISTRIBUTION WIDTH 20.8 % (11.5-14.5); WHITE BLOOD COUNT 9.2 10^3/ul (4.5-11.0)
[2018-04-27 08:17] LABS: URINE APPEARANCE CLEAR (CLEAR); URINE COLOR YELLOW (YELLOW)
[2018-04-27 08:25] LABS: ALB/GLOB RATIO 1.3 (1.1-1.8); ALBUMIN 3.8 g/dL (3.0-4.8); ALT/SGPT 19 U/L (7-56); AST/SGOT 41 U/L (14-36); BLOOD UREA NITROGEN 10 mg/dL (7-21); CALCIUM 8.7 mg/dL (8.4-10.5); GFR AFRICAN-AMERICAN > 60; GFR NON-AFRICAN AMERICAN > 60
[2018-04-27 08:42] LABS: OPIATES, UR NEGATIVE (NEGATIVE)
[2018-04-27 08:44] LABS: BARBITURATES, UR NEGATIVE (NEGATIVE); BENZODIAZEPINES, UR NEGATIVE (NEGATIVE); PHENCYCLIDINE, UR NEGATIVE (NEGATIVE)
--- NOTE | 2018-04-27 09:13 | CARD ---
APPROVED REPORT Date of service: 04/26/2018 EKG Measurement Heart [id number] <Conclusion> Normal sinus rhythm Moderate voltage criteria for LVH, may be normal variant Borderline ECG
--- NOTE | 2018-04-27 09:23 | RAD ---
Date of service: 04/26/2018 HISTORY: medical clearance COMPARISON: 03/17/2018 FINDINGS: LUNGS: No active pulmonary disease. PLEURA: No significant pleural effusion identified, no pneumothorax apparent. CARDIOVASCULAR: Normal. OSSEOUS STRUCTURES: No significant abnormalities. VISUALIZED UPPER ABDOMEN: Normal. OTHER FINDINGS: None. IMPRESSION: No active disease.
--- NOTE | 2018-04-27 09:29 | CP.PCM.CON ---
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 GI was consulted for iron deficiency anemia. Pt was seen 03/2018 by GI for similar complaints and had an EGD which showed gastric erosions, no gastric ulcers, and superficial duodenal ulcers, path was positive for H.pylori. Per pt no treatment for bacterial infection. Pt was told to continue her aspirin. She also had a Colonoscopy 04/2017 which was negative except for internal hemorrhoids. EGD 2016 Duodenal FC IIc and Gastric Ulcers FC III, path was negative for H.pylori. Pt denies any rectal bleeding or constipation. Per residential sales associate rectal exam was with brown stool. No hx of EtOH or NSAIDs or blood thinners. Patient denied any hematemesis, abd pain, N/V, hematochezia nor melena. Upon admission she was transfused two unit PRBC with good response. During last admission celiac panel was negative. Pt also reports menhorragia with heavy menses every month and does not endorse a PROFESSOR OF OCEANOGRAPHY followup. ROS: 12 point ROS negative other than stated above. PmHx: As stated above PsHx: none FHx: neg for colon cancer SHx: Denies EtOH, Tob, Illicits Past Patient History - Infectious Disease Hx of Infectious Diseases: None - Tetanus Immunizations Tetanus Immunization: Unknown - Past Social History Smoking Status: Light Smoker < 10 Cigarettes Daily - CARDIAC Hx Cardiac Disorders: Yes (Hyperlipidemia) Hx Hypercholesterolemia: Yes Hx Hypertension: Yes - PULMONARY Hx Respiratory Disorders: No - NEUROLOGICAL Hx Neurological Disorder: Yes (Asphasia) HX Cerebrovascular Accident: Yes (2011) Hx Dizziness: Yes - HEENT Hx HEENT Problems: Yes (Wears glasses) - RENAL Hx Chronic Kidney Disease: No - ENDOCRINE/METABOLIC Hx Endocrine Disorders: No - HEMATOLOGICAL/ONCOLOGICAL Hx Anemia: Yes - INTEGUMENTARY Hx Dermatological Problems: No - MUSCULOSKELETAL/RHEUMATOLOGICAL Hx Musculoskeletal Disorders: Yes (R SIDED WEAKNESS) Hx Arthritis: Yes Hx Falls: Yes Hx Unsteady Gait: Yes - GASTROINTESTINAL Hx Gastrointestinal Disorders: No - GENITOURINARY/GYNECOLOGICAL Hx Genitourinary Disorders: Yes (R ovary pain) - PSYCHIATRIC Hx Psychophysiologic Disorder: Yes (AMS) Hx Anxiety: Yes Hx Bipolar Disorder: Yes Hx Depression: Yes Hx Substance Use: No - SURGICAL HISTORY Hx Surgeries: Yes () Hx Cholecystectomy: Yes - ANESTHESIA Hx Anesthesia: Yes Hx Anesthesia Reactions: No Hx Malignant Hyperthermia: No Meds Allergies/Adverse Reactions: Allergies Allergy/AdvReac Type Severity Reaction Status Date / Time No Known Allergies Allergy Verified 11/07/17 13:48 - Medications Medications: Current Medications Alprazolam (Xanax) 0.25 mg PO BID [facility] PRN Reason: Protocol Cyanocobalamin (Vitamin B12 100 Mcg Tab) 100 mcg PO DAILY [facility] Ergocalciferol (Drisdol 50,000 Intl Units Cap) 1 cap PO Q7D [facility] Last Admin: 04/26/18 23:30 Dose: 1 cap Fluoxetine HCl (Prozac) 20 mg PO DAILY [facility] Sodium Chloride (Sodium Chloride 0.9%) 1,000 mls @ 100 mls/hr IV .Q10H [facility] Last Admin: 04/27/18 01:41 Dose: Not Given Losartan Potassium (Cozaar) 100 mg PO DAILY [facility] Memantine (Namenda) 10 mg PO DAILY [facility] Pantoprazole Sodium (Protonix Inj) 40 mg IVP DAILY [facility] Tamsulosin HCl (Flomax) 0.4 mg PO DAILY [facility] Physical Exam - Constitutional Appears: Non-toxic, No Acute Distress, Older Than Stated Age, Chronically Ill - Head Exam Head Exam: ATRAUMATIC, NORMAL INSPECTION, NORMOCEPHALIC - Eye Exam Eye Exam: EOMI, Normal appearance, PERRL Pupil Exam: PERRL - ENT Exam ENT Exam: Mucous Membranes Moist - Respiratory Exam Respiratory Exam: Clear to Auscultation Bilateral, NORMAL BREATHING PATTERN - Cardiovascular Exam Cardiovascular Exam: RRR, +S1, +S2 - GI/Abdominal Exam GI & Abdominal Exam: Normal Bowel Sounds, Soft. absent: Distended, Guarding, Organomegaly, Tenderness - Rectal Exam Rectal Exam: Deferred - Extremities Exam Additional comments: right sided hemiparesis - Neurological Exam Neurological exam: Alert - Psychiatric Exam Psychiatric exam: Flat Affect, Normal Affect, Normal Mood Results - Vital Signs Recent Vital Signs: Last Vital Signs Temp 98.1 F 04/27/18 06:00 Pulse 67 04/27/18 06:00 Resp 20 04/27/18 06:00 BP 155/93 H 04/27/18 06:00 Pulse Ox 97 04/27/18 06:00 - Labs Result Diagrams: 04/27/18 08:00 04/27/18 08:00 Labs: Laboratory Results - last 24 hr 04/27/18 04/27/18 04/27/18 07:00 07:00 08:00 WBC 9.2 D RBC 4.72 Hgb 10.4 L D Hct 33.2 L MCV 70.3 L MCH 22.0 L MCHC 31.3 RDW 20.8 H Plt Count 644 H MPV 8.2 Gran % 60.3 Lymph % (Auto) 32.0 [place] % (Auto) 5.3 Eos % (Auto) 2.0 Baso % (Auto) 0.4 Gran # 5.55 Lymph # (Auto) 3.0 [place] # (Auto) 0.5 Eos # (Auto) 0.2 Baso # (Auto) 0.04 Sodium Potassium Chloride Carbon Dioxide Anion Gap BUN Creatinine Est GFR ( Amer) Est GFR (Non-Af Amer) Random Glucose Calcium Total Bilirubin AST ALT Alkaline Phosphatase Total Protein Albumin Globulin Albumin/Globulin Ratio Urine Color Yellow Urine Appearance Clear Urine pH 7.0 Ur Specific [place] 1.010 Urine Protein Negative Urine Glucose (UA) Negative Urine Ketones Negative Urine Blood Negative Urine Nitrate Negative Urine Bilirubin Negative Urine Urobilinogen 0.2 Ur Leukocyte Esterase Negative Urine Opiates Screen Negative Urine Methadone Screen Negative Ur Barbiturates Screen Negative Ur Phencyclidine Scrn Negative Ur Amphetamines Screen Negative U Benzodiazepines Scrn Negative U Oth Cocaine Metabols Negative U Cannabinoids Screen Positive H 04/27/18 08:00 WBC RBC Hgb Hct MCV MCH MCHC RDW Plt Count MPV Gran % Lymph % (Auto) [place] % (Auto) Eos % (Auto) Baso % (Auto) Gran # Lymph # (Auto) [place] # (Auto) Eos # (Auto) Baso # (Auto) Sodium 139 Potassium 3.6 Chloride 106 Carbon Dioxide 25 Anion Gap 12 BUN 10 Creatinine 0.5 L Est GFR ( Amer) > 60 Est GFR (Non-Af Amer) > 60 Random Glucose 91 Calcium 8.7 Total Bilirubin 0.5 AST 41 H ALT 19 Alkaline Phosphatase 74 Total Protein 6.7 Albumin 3.8 Globulin 2.9 Albumin/Globulin Ratio 1.3 Urine Color Urine Appearance Urine pH Ur Specific [place] Urine Protein Urine Glucose (UA) Urine Ketones Urine Blood Urine Nitrate Urine Bilirubin Urine Urobilinogen Ur Leukocyte Esterase Urine Opiates Screen Urine Methadone Screen Ur Barbiturates Screen Ur Phencyclidine Scrn Ur Amphetamines Screen U Benzodiazepines Scrn U Oth Cocaine Metabols U Cannabinoids Screen Assessment & Plan - Assessment and Plan (Free Text) Assessment: This is a 43yF sent by PCP to ER for low Hgb. 1. Iron deficiency Anemia 2. PUD 3. H.pylori infection 4. Menorrhagia Plan: -Continue supportive care -No overt GI bleeding, hemodynamically stable, rectal with brown stool -H/H stable s/p 2U PRBCs -Continue to monitor H/H and transfuse as needed -Celiac panel negative 03/2018 -Pt is s/p EGD 03/2018 with healing ulcers and no active bleeding, Colonoscopy 2016 negative -PPI po daily -No plan for any endoscopic evaluation at tis time -Pt may benefit from capsule study to r/o small bowel etiology for anemia -Will start treatment for H.pylori and will need stool antigen tested as an outpt 8 weeks after completing treatment -Pt with Menorrhagia, recommend PROFESSOR OF OCEANOGRAPHY evaluation for possible cause of anemia -Will continue to follow pt closely The H/P and A/P was discussed with Dr. Sheldon who agrees with the above mentioned plan of care. <Dontrell Sheldon - Last Filed: 04/27/18 09:51> Meds - Medications Medications: Current Medications Alprazolam (Xanax) 0.25 mg PO BID [facility] PRN Reason: Protocol Cyanocobalamin (Vitamin B12 100 Mcg Tab) 100 mcg PO DAILY [facility] Ergocalciferol (Drisdol 50,000 Intl Units Cap) 1 cap PO Q7D [facility] Last Admin: 04/26/18 23:30 Dose: 1 cap Fluoxetine HCl (Prozac) 20 mg PO DAILY [facility] Sodium Chloride (Sodium Chloride 0.9%) 1,000 mls @ 100 mls/hr IV .Q10H [facility] Last Admin: 04/27/18 01:41 Dose: Not Given Losartan Potassium (Cozaar) 100 mg PO DAILY [facility] Memantine (Namenda) 10 mg PO DAILY [facility] Tamsulosin HCl (Flomax) 0.4 mg PO DAILY [facility] Results - Vital Signs Recent Vital Signs: Last Vital Signs Temp 98.1 F 04/27/18 06:00 Pulse 67 04/27/18 06:00 Resp 20 04/27/18 06:00 BP 155/93 H 04/27/18 06:00 Pulse Ox 97 04/27/18 06:00 - Labs Result Diagrams: 04/27/18 08:00 04/27/18 08:00 Labs: Laboratory Results - last 24 hr 04/27/18 04/27/18 04/27/18 07:00 07:00 08:00 WBC 9.2 D RBC 4.72 Hgb 10.4 L D Hct 33.2 L MCV 70.3 L MCH 22.0 L MCHC 31.3 RDW 20.8 H Plt Count 644 H MPV 8.2 Gran % 60.3 Lymph % (Auto) 32.0 [place] % (Auto) 5.3 Eos % (Auto) 2.0 Baso % (Auto) 0.4 Gran # 5.55 Lymph # (Auto) 3.0 [place] # (Auto) 0.5 Eos # (Auto) 0.2 Baso # (Auto) 0.04 Sodium Potassium Chloride Carbon Dioxide Anion Gap BUN Creatinine Est GFR ( Amer) Est GFR (Non-Af Amer) Random Glucose Calcium Total Bilirubin AST ALT Alkaline Phosphatase Total Protein Albumin Globulin Albumin/Globulin Ratio Urine Color Yellow Urine Appearance Clear Urine pH 7.0 Ur Specific [place] 1.010 Urine Protein Negative Urine Glucose (UA) Negative Urine Ketones Negative Urine Blood Negative Urine Nitrate Negative Urine Bilirubin Negative Urine Urobilinogen 0.2 Ur Leukocyte Esterase Negative Urine Opiates Screen Negative Urine Methadone Screen Negative Ur Barbiturates Screen Negative Ur Phencyclidine Scrn Negative Ur Amphetamines Screen Negative U Benzodiazepines Scrn Negative U Oth Cocaine Metabols Negative U Cannabinoids Screen Positive H 04/27/18 08:00 WBC RBC Hgb Hct MCV MCH MCHC RDW Plt Count MPV Gran % Lymph % (Auto) [place] % (Auto) Eos % (Auto) Baso % (Auto) Gran # Lymph # (Auto) [place] # (Auto) Eos # (Auto) Baso # (Auto) Sodium 139 Potassium 3.6 Chloride 106 Carbon Dioxide 25 Anion Gap 12 BUN 10 Creatinine 0.5 L Est GFR ( Amer) > 60 Est GFR (Non-Af Amer) > 60 Random Glucose 91 Calcium 8.7 Total Bilirubin 0.5 AST 41 H ALT 19 Alkaline Phosphatase 74 Total Protein 6.7 Albumin 3.8 Globulin 2.9 Albumin/Globulin Ratio 1.3 Urine Color Urine Appearance Urine pH Ur Specific [place] Urine Protein Urine Glucose (UA) Urine Ketones Urine Blood Urine Nitrate Urine Bilirubin Urine Urobilinogen Ur Leukocyte Esterase Urine Opiates Screen Urine Methadone Screen Ur Barbiturates Screen Ur Phencyclidine Scrn Ur Amphetamines Screen U Benzodiazepines Scrn U Oth Cocaine Metabols U Cannabinoids Screen Attending/Attestation - Attestation I have fully participated in the care of the patient.: Yes I have reviewed all pertinent clinical information: Yes Notes (Text): 04/27/18 09:49 Agree with above documentation. Patient with iron deficiency anemia, s/p PRBC transfusion with appropriate response in H/H. Recent EGD showed diminutive duodenal ulcers, colonoscopy last year was normal. Patient currently hemodynamically stable with normal rectal exam without features of overt bleeding. Suggest further workup including PROFESSOR OF OCEANOGRAPHY follow up and consideration of outpatient capsule endoscopy. No planned inpatient GI intervention, will sign off case. Please reconsult as necessary, thank you.
[2018-04-27 12:21] LABS: FERRITIN 4.2 ng/mL
[2018-04-27 12:51] LABS: FOLATE 7.7 ng/mL
[2018-04-27 12:56] LABS: FSH 4.7 mIU/mL
--- NOTE | 2018-04-27 14:30 | CP.PCM.PN ---
<Art Villarreal - Last Filed: 04/27/18 16:07> Subjective - Date & Time of Evaluation Date of Evaluation: 04/27/18 Time of Evaluation: 07:00 - Subjective Subjective: Internal Medicine Progress Note for Dr. Brenda Villarreal PGY1 43F seen and evaluated at bedside this morning. No acute events overnight. Patient is complaining if right sided tooth ache. She saw her dentist 2 weeks ago who told her they will treat the problem in 3 weeks. She states Tylenol relieves the pain. Patient says she continues to feel weak however it has improved since admission. She is tolerating her diet however complaints the food does not taste good. She has not been ambulating. Denies fever, chills, nausea, vomiting, headache, dizziness, chest pain, palpitations, shortness of breath, abdominal pain, or urinary symptoms. Objective - Vital Signs/Intake and Output Vital Signs (last 24 hours): Temp Pulse Resp BP Pulse Ox 98 F 64 18 163/91 H 97 04/27/18 12:00 04/27/18 12:00 04/27/18 12:00 04/27/18 12:00 04/27/18 06:00 Intake and Output: 04/27/18 04/27/18 06:59 18:59 Intake Total 1348 Output Total 150 Balance 1198 - Medications Medications: Current Medications Alprazolam (Xanax) 0.25 mg PO BID [facility] PRN Reason: Protocol Last Admin: 04/27/18 12:38 Dose: 0.25 mg Amoxicillin (Amoxil 500 Mg Cap) 1,000 mg PO BID [facility] PRN Reason: Protocol Stop: 05/11/18 10:01 Last Admin: 04/27/18 12:38 Dose: 1,000 mg Clarithromycin (Biaxin Filmtab) 500 mg PO Q12 [facility] PRN Reason: Protocol Stop: 05/11/18 10:01 Last Admin: 04/27/18 12:36 Dose: 500 mg Cyanocobalamin (Vitamin B12 100 Mcg Tab) 100 mcg PO DAILY [facility] Last Admin: 04/27/18 12:38 Dose: 100 mcg Ergocalciferol (Drisdol 50,000 Intl Units Cap) 1 cap PO Q7D [facility] Last Admin: 04/26/18 23:30 Dose: 1 cap Fluoxetine HCl (Prozac) 20 mg PO DAILY [facility] Last Admin: 04/27/18 12:36 Dose: 20 mg Sodium Chloride (Sodium Chloride 0.9%) 1,000 mls @ 100 mls/hr IV .Q10H [facility] Last Admin: 04/27/18 01:41 Dose: Not Given Losartan Potassium (Cozaar) 100 mg PO DAILY [facility] Last Admin: 04/27/18 12:36 Dose: 100 mg Memantine (Namenda) 10 mg PO DAILY [facility] Last Admin: 04/27/18 12:38 Dose: 10 mg Pantoprazole Sodium (Protonix Ec Tab) 40 mg PO 0600 [facility] Stop: 05/12/18 06:01 Tamsulosin HCl (Flomax) 0.4 mg PO DAILY [facility] Last Admin: 04/27/18 12:36 Dose: 0.4 mg - Labs Labs: 04/27/18 08:00 04/27/18 08:00 PT 12.3 SECONDS (9.4-12.5) 04/26/18 20:20 INR 1.08 04/26/18 20:20 APTT 30.3 Seconds (25.1-36.5) 04/26/18 20:20 - Constitutional Appears: Well, Non-toxic, No Acute Distress - Head Exam Head Exam: ATRAUMATIC, NORMAL INSPECTION, NORMOCEPHALIC - Eye Exam Eye Exam: EOMI - ENT Exam ENT Exam: Mucous Membranes Dry - Respiratory Exam Respiratory Exam: Clear to Ausculation Bilateral, NORMAL BREATHING PATTERN - Cardiovascular Exam Cardiovascular Exam: REGULAR RHYTHM, +S1, +S2. absent: Murmur - GI/Abdominal Exam GI & Abdominal Exam: Soft, Normal Bowel Sounds. absent: Tenderness - Extremities Exam Extremities Exam: Normal Inspection. absent: Pedal Edema - Neurological Exam Neurological Exam: Alert, Awake Neuro motor strength exam: Left Upper Extremity: 3, Right Upper Extremity: 2/1, Left Lower Extremity: 3, Right Lower Extremity: 2/1 Assessment and Plan - Assessment and Plan (Free Text) Assessment: 43F, PMH of CVA on 12/29 with residual right sided weakness s/p G-tube removal , peptic ulcer disease diagnosed 03/31, chronic anemia, menorrhagia, HTN, depression, and bipolar disorder, presents to ED with fatigue and weakness. Plan: 1. Microcytic Normochromic Anemia - Etiology secondary to menorrhagia vs. peptic ulcer disease vs. malnourished - Iron studies reveal iron deficiency anemia likely - Transferrin, folate, B12 results wnl - H/H was 7.7/26 , today 10.4/32 - Transfused 2units PRBCs overnight - Continue to monitor H/H - Home ASA held due to possible bleed - NS 100cc/hr - Discontinued telemetry - Pending stool occult blood 2. Peptic Ulcer Disease - Endoscopy done 04/2017 showing Grade 2 and 3 duodenal ulcers, non-bleeding and gastric erosions in the antrum, body and fundus - Pathology positive for H. pylori however patient was not started on Triple Therapy - GI, Dr. Sheldon consulted: Will start treatment for H.pylori and will need stool antigen tested as an outpt 8 weeks after completing treatment. Consider capsule study as outpatient to assess anemia. Signed off. - Triple therapy: Amoxicillin, Clarithromycin, and Protonix 3. Thrombocytosis - Etiology secondary to iron deficiency vs. less likely infection vs. less likely malignancy - Trending down, currently 644 - Heme/Onc, Dr. Herbert consulted, recommendations appreciated 4. Menorrhagia - FOOD AND BEVERAGE ASSISTANT MANAGER, Dr. Larios consulted, recommendations appreciated - Pelvic US: normal findings 5. Substance Abuse - Toxicology screen positive for cannabinoids - Advised on cessation 6. History of Depression/Anxiety - Continue with home medications: Xanax, Prozac 7. History of Vitamin D Deficiency - Continue with home medications: Ergocalciferol 8. History of HTN - Continue with home medications: Cozaar GI: Protonix DVT: SCDs Diet: HHD Disposition: Patient's sister Nicol [phone] Patient seen, case reviewed, and plan discussed with Dr. Celio Villarreal PGY1 <Brenda Pickens R - Last Filed: 04/28/18 08:00> Objective - Vital Signs/Intake and Output Vital Signs (last 24 hours): Temp Pulse Resp BP Pulse Ox 98.2 F 62 20 148/91 H 97 04/28/18 06:00 04/28/18 06:00 04/28/18 06:00 04/28/18 06:00 04/28/18 06:00 Intake and Output: 04/28/18 04/28/18 06:59 18:59 Intake Total 2340 Output Total 1150 Balance 1190 - Medications Medications: Current Medications Alprazolam (Xanax) 0.25 mg PO BID [facility] PRN Reason: Protocol Last Admin: 04/27/18 19:13 Dose: 0.25 mg Amoxicillin (Amoxil 500 Mg Cap) 1,000 mg PO BID [facility] PRN Reason: Protocol Stop: 05/11/18 10:01 Last Admin: 04/27/18 18:07 Dose: 1,000 mg Clarithromycin (Biaxin Filmtab) 500 mg PO Q12 [facility] PRN Reason: Protocol Stop: 05/11/18 10:01 Last Admin: 04/27/18 21:44 Dose: 500 mg Cyanocobalamin (Vitamin B12 100 Mcg Tab) 100 mcg PO DAILY [facility] Last Admin: 04/27/18 12:38 Dose: 100 mcg Ergocalciferol (Drisdol 50,000 Intl Units Cap) 1 cap PO Q7D [facility] Last Admin: 04/26/18 23:30 Dose: 1 cap Fluoxetine HCl (Prozac) 20 mg PO DAILY [facility] Last Admin: 04/27/18 12:36 Dose: 20 mg Sodium Chloride (Sodium Chloride 0.9%) 1,000 mls @ 100 mls/hr IV .Q10H [facility] Last Admin: 04/27/18 14:02 Dose: 100 mls/hr Iron Sucrose 200 mg/ Sodium (Chloride) 110 mls @ 110 mls/hr IVPB ONCE ONE Stop: 04/28/18 08:05 Losartan Potassium (Cozaar) 100 mg PO DAILY [facility] Last Admin: 04/27/18 12:36 Dose: 100 mg Memantine (Namenda) 10 mg PO DAILY [facility] Last Admin: 04/27/18 12:38 Dose: 10 mg Pantoprazole Sodium (Protonix Ec Tab) 40 mg PO 0600 [facility] Stop: 05/12/18 06:01 Tamsulosin HCl (Flomax) 0.4 mg PO DAILY [facility] Last Admin: 04/27/18 12:36 Dose: 0.4 mg - Labs Labs: 04/28/18 06:45 04/28/18 06:45 PT 12.3 SECONDS (9.4-12.5) 04/26/18 20:20 INR 1.08 04/26/18 20:20 APTT 30.3 Seconds (25.1-36.5) 04/26/18 20:20 Attending/Attestation - Attestation I have personally seen and examined this patient.: Yes I have fully participated in the care of the patient.: Yes I have reviewed all pertinent clinical information, including history, physical exam and plan: Yes Notes (Text): Patient seen and examined by me at 10:05AM 04/27/18 with resident at bedside. Case including physical assessment and plan discussed in detail with resident. Agree with above with following additions/changes. Patient states that she is feeling ok. Feels weak. Complains of right upper tooth pain and states she has to have her teeth removed in 2 weeks. She denies any nausea, vomiting, or abdominal pain. No headaches or dizziness. No fevers or chills. No dysuria. No diarrhea, constipation, or hematochezia. Patient with expressive aphasia. Physical exam: Gen: Patient is awake and alert lying in bed in no acute distress HEENT: Normocephalic atraumatic. extraocular muscles intact. Pupils equal and reactive. Oropharynx is pink and moist. Positive upper back teeth noted to have cavities. No pharyngeal erythema or exudate appreciated. Neck is supple. Pulmonary: Normal respiratory effort. No rhonchi, rales, or wheezing appreciated Cardiovascular: Regular rhythm. Normal S1 and S2. No murmurs or gallops appreciated. Gastrointestinal: Soft, nontender, nondistended. Positive bowel sounds all 4 quadrants. No guarding. Musculoskeletal: Moves all extremities. No calf tenderness. No edema appreciated. Vascular: 2+ peripheral pulses upper and lower extremities Central nervous system: AAO 3. Positive right upper and lower extremity weakness when compared to left. Positive expressive aphasia. Secondary to a previous stroke and is chronic. Dermatologic: Skin warm and dry Assessment and plan: Patient is a 43-year-old female, presented to the emergency room with fatigue, generalized weakness, and near syncopal episodes at home. Patient found to have anemia. 1. Acute on chronic symptomatic iron deficiency anemia. Patient recieved 2 units PRBCS. H&H improved. GI following, recommendations appreciated. Patient may benefit from capsule study as an outpatient. Hem/onc consulted, pending recommendations. 2. History of menorrhagia. Anemia may be secondary to this. Will consult weed cutter, follow up recommendations. Pelvic ultrasound per radiologist shows unremarkable pelvis ultrasound. 3. History of Peptic Ulcer Disease. EGD 04/2017 showed non-bleeding healing ulcers. H.Pylori positive. Started on triple therapy. Patient will need stool antigen test outpatient 8 weeks after completing therapy. 4. Thrombocytosis. Downtrending. Continue to monitor. Hem/onc consulted, pending recommendations. 5. History of CVA with residual right sided weakness and expressive aphasia. ASA held for now. Follow up with GI to restart. 6. Essential hypertension. Continue Cozaar 7. History of depression and anxiety. Continue Xanax and Prozac 8. Drug abuse. Patient uses marijuana daily. Counseled on Cessation. 9. Vitamin D deficiency. Continue 50,000 IU qweek. 10. Patient is a full code 11. GI and DVT prophylaxis. Protonix and SCD. Case was discussed in detail with patient regarding current diagnosis and treatment plan. 04/28/18 08:00
--- NOTE | 2018-04-27 14:30 | US ---
Date of service: 04/27/2018 HISTORY: MENORRHGIA COMPARISON: None available. TECHNIQUE: Transabdominal FINDINGS: UTERUS: Measures 9.1 x 4.6 x 5.9 cm. Normal in size and appearance. No fibroid or other mass lesion seen. ENDOMETRIUM: Measures to mm in diameter. Unremarkable. CERVIX: No cervical abnormality identified. RIGHT OVARY: Measures 3.6 x 2.0 x 3.0 cm. No solid mass. Normal flow. LEFT OVARY: Measures 3.1 x 2.2 x 2.0 cm. No solid mass. Normal flow. Follicular cyst measuring 9 x 10 x 15 mm. FREE FLUID: No significant free fluid noted. OTHER FINDINGS: None. IMPRESSION: Unremarkable pelvic ultrasound.
[2018-04-28] MEDS ORDERED: Oxycodone/Acetaminophen 2.5/325 mg Tab PO STA (02:12)
[2018-04-28] MEDS ORDERED: Pantoprazole 40 mg EC Tab PO SCH (06:00)
[2018-04-28 07:04] LABS: BASO # 0.04 K/mm3 (0.0-2.0); BASO % 0.4 % (0.0-3.0); EOS # 0.2 (0.0-0.7); EOS % 2.2 % (1.5-5.0); GRAN # 5.29 (1.4-6.5); HEMOGLOBIN 10.7 g/dL (12.0-16.0); LYMPH # 3.2 (1.2-3.4); MEAN CELL VOLUME 70.2 fl (80.0-105.0); MEAN CORPUSCULAR HEMOGLOBIN 21.8 pg (25.0-35.0); MEAN CORPUSCULAR HGB CONC 31.1 g/dl (31.0-37.0); MEAN PLATELET VOLUME 8.3 fl (7.0-11.0); MONO # 0.5 (0.1-0.6); MONO % 5.4 % (1.0-6.0); RBC 4.9 10^6/uL (3.5-6.1); RED CELL DISTRIBUTION WIDTH 21.2 % (11.5-14.5); WHITE BLOOD COUNT 9.3 10^3/ul (4.5-11.0)
[2018-04-28 07:25] LABS: ALB/GLOB RATIO 1.3 (1.1-1.8); ALBUMIN 3.8 g/dL (3.0-4.8); ALT/SGPT 26 U/L (7-56); AST/SGOT 33 U/L (14-36); BLOOD UREA NITROGEN 9 mg/dL (7-21); CALCIUM 8.7 mg/dL (8.4-10.5); GFR AFRICAN-AMERICAN > 60; GFR NON-AFRICAN AMERICAN > 60
[2018-04-28] MEDS: Sodium Chloride 0.9% 1,000 ML IV SCH (11:59)
[2018-04-28] MEDS ORDERED: POLYETHYLENE GLYCOL 3350 17 GM/Dose PACKET PO ONE (12:04)
[2018-04-28] MEDS ORDERED: Oxycodone/Acetaminophen 5/325 mg Tab PO STA (12:07)
--- NOTE | 2018-04-28 13:16 | CP.PCM.DIS ---
<Art Villarreal - Last Filed: 04/28/18 13:55> Provider - Provider Date of Admission: 04/26/18 21:45 Attending physician: Brenda Pickens DO Consults: Heme/Onc - Dr. Herbert CAMPAIGN SPECIALIST - Dr. Larios Time Spent in preparation of Discharge (in minutes): 100 Hospital Course - Lab Results Lab Results: Most Recent Lab Values WBC 9.3 10^3/ul (4.5-11.0) 04/28/18 06:45 RBC 4.90 10^6/uL (3.5-6.1) 04/28/18 06:45 Hgb 10.7 g/dL (12.0-16.0) L 04/28/18 06:45 Hct 34.4 % (36.0-48.0) L 04/28/18 06:45 MCV 70.2 fl (80.0-105.0) L 04/28/18 06:45 MCH 21.8 pg (25.0-35.0) L 04/28/18 06:45 MCHC 31.1 g/dl (31.0-37.0) 04/28/18 06:45 RDW 21.2 % (11.5-14.5) H 04/28/18 06:45 Plt Count 713 10^3/uL (120.0-450.0) H* 04/28/18 06:45 MPV 8.3 fl (7.0-11.0) 04/28/18 06:45 Gran % 57.0 % (50.0-68.0) 04/28/18 06:45 Lymph % (Auto) 35.0 % (22.0-35.0) 04/28/18 06:45 Baca % (Auto) 5.4 % (1.0-6.0) 04/28/18 06:45 Eos % (Auto) 2.2 % (1.5-5.0) 04/28/18 06:45 Baso % (Auto) 0.4 % (0.0-3.0) 04/28/18 06:45 Gran # 5.29 (1.4-6.5) 04/28/18 06:45 Lymph # (Auto) 3.2 (1.2-3.4) 04/28/18 06:45 [place]aca # (Auto) 0.5 (0.1-0.6) 04/28/18 06:45 Eos # (Auto) 0.2 (0.0-0.7) 04/28/18 06:45 Baso # (Auto) 0.04 K/mm3 (0.0-2.0) 04/28/18 06:45 Retic Count 0.64 % (0.5-1.5) 04/26/18 20:20 PT 12.3 SECONDS (9.4-12.5) 04/26/18 20:20 INR 1.08 04/26/18 20:20 APTT 30.3 Seconds (25.1-36.5) 04/26/18 20:20 Sodium 139 mmol/L (132-148) 04/28/18 06:45 Potassium 3.6 mmol/L (3.6-5.0) 04/28/18 06:45 Chloride 106 mmol/L (98-107) 04/28/18 06:45 Carbon Dioxide 22 mmol/L (21-33) 04/28/18 06:45 Anion Gap 14 (10-20) 04/28/18 06:45 BUN 9 mg/dL (7-21) 04/28/18 06:45 Creatinine 0.5 mg/dl (0.7-1.2) L 04/28/18 06:45 Est GFR ( Amer) > 60 04/28/18 06:45 Est GFR (Non-Af Amer) > 60 04/28/18 06:45 Random Glucose 85 mg/dL (70-110) 04/28/18 06:45 Calcium 8.7 mg/dL (8.4-10.5) 04/28/18 06:45 Iron 14 ug/dL (45-180) L 04/26/18 20:20 TIBC 414 ug/dL (265-497) 04/26/18 20:20 % Saturation 3 % (20-55) L 04/26/18 20:20 Transferrin 327.67 mg/dL (206-381) 04/26/18 20:20 Ferritin 4.2 ng/mL 04/26/18 20:20 Total Bilirubin 0.4 mg/dL (0.2-1.3) 04/28/18 06:45 AST 33 U/L (14-36) 04/28/18 06:45 ALT 26 U/L (7-56) 04/28/18 06:45 Alkaline Phosphatase 79 U/L (38-126) 04/28/18 06:45 Total Protein 6.8 g/dL (5.8-8.3) 04/28/18 06:45 Albumin 3.8 g/dL (3.0-4.8) 04/28/18 06:45 Globulin 3.0 gm/dL 04/28/18 06:45 Albumin/Globulin Ratio 1.3 (1.1-1.8) 04/28/18 06:45 Vitamin B12 336 pg/mL (239-931) 04/26/18 20:20 Folate 7.7 ng/mL 04/26/18 20:20 FSH 3rd Generation 4.7 mIU/mL 04/27/18 08:00 Luteinizing Hormone 4.5 mIU/mL 04/27/18 08:00 Urine Color Yellow (YELLOW) 04/27/18 07:00 Urine Appearance Clear (CLEAR) 04/27/18 07:00 Urine pH 7.0 (4.7-8.0) 04/27/18 07:00 Ur Specific [place] 1.010 (1.005-1.035) 04/27/18 07:00 Urine Protein Negative mg/dL (<30 mg/dL) 04/27/18 07:00 Urine Glucose (UA) Negative mg/dL (NEGATIVE) 04/27/18 07:00 Urine Ketones Negative mg/dL (NEGATIVE) 04/27/18 07:00 Urine Blood Negative (NEGATIVE) 04/27/18 07:00 Urine Nitrate Negative (NEGATIVE) 04/27/18 07:00 Urine Bilirubin Negative (NEGATIVE) 04/27/18 07:00 Urine Urobilinogen 0.2 E.U./dL (<1 E.U./dL) 04/27/18 07:00 Ur Leukocyte Esterase Negative [place]/uL (NEGATIVE) 04/27/18 07:00 Urine Opiates Screen Negative (NEGATIVE) 04/27/18 07:00 Urine Methadone Screen Negative (NEGATIVE) 04/27/18 07:00 Ur Barbiturates Screen Negative (NEGATIVE) 04/27/18 07:00 Ur Phencyclidine Scrn Negative (NEGATIVE) 04/27/18 07:00 Ur Amphetamines Screen Negative (NEGATIVE) 04/27/18 07:00 U Benzodiazepines Scrn Negative (NEGATIVE) 04/27/18 07:00 U Oth Cocaine Metabols Negative (NEGATIVE) 04/27/18 07:00 U Cannabinoids Screen Positive (NEGATIVE) H 04/27/18 07:00 Blood Type A POSITIVE 04/26/18 20:30 Antibody Screen Negative 04/26/18 20:30 Crossmatch See Detail 04/26/18 20:30 BBK History Checked Patient has bt 04/26/18 20:30 - Hospital Course Hospital Course: 43 year old female, with a past medical history of 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 Initial labs showed a low hemoglobin and patient was transfused with 2 units of PRBCs. After a thorough work up including , labs and imaging, it was found that the patient continues to be Iron Deficient. Triple therapy had not been initiated for her recent diagnosis of peptic ulcer disease positive for H. pylori and that was started during this admission. Gastroenterology was consulted and recommended outpatient follow up in 8 weeks for stool antigen testing. Patient was noted to have an elevated platelet count, possibly secondary to her iron deficiency for which hematology/ oncology was consulted. Their recommendations included a dose of IV iron as well as weekly follow up outpatient for continued treatment with IV iron until levels are sufficient. Patient complained of heavy periods and has been followed by a concrete swimming pool installer outpatient and their recommendations included further follow up to decide on the best treatment option. Pelvic ultrasound showed no acute findings. Patient was advised on marijuana cessation. We continued her home medications for depression, anxiety, hypertension, and vitamin D deficiency. GI and DVT prophylaxis was administered. She tolerated her diet. She is to follow up with her primary medical doctor within 3-5 days, with GI in 8 weeks, and with CAMPAIGN SPECIALIST this week or next. Above is a brief summary of this patient's admission. For a more detailed encounter, please refer to medical records. - Date & Time of H&P Date of H&P: 04/26/18 Time of H&P: 23:20 Discharge Exam - Head Exam Head Exam: ATRAUMATIC, NORMAL INSPECTION, NORMOCEPHALIC - Eye Exam Eye Exam: EOMI, PERRL - ENT Exam ENT Exam: Mucous Membranes Moist - Respiratory Exam Respiratory Exam: Clear to PA & Lateral, NORMAL BREATHING PATTERN, UNREMARKABLE. absent: Wheezes - Cardiovascular Exam Cardiovascular Exam: REGULAR RHYTHM, +S1, +S2. absent: Systolic Murmur - GI/Abdominal Exam GI & Abdominal Exam: Normal Bowel Sounds, Soft. absent: Tenderness - Neurological Exam Neurological exam: Alert, Oriented x3 Discharge Plan - Discharge Medications Prescriptions: Amoxicillin [Amoxil 500 mg Cap] 1,000 mg PO BID 13 Days #26 cap Clarithromycin [Biaxin Filmtab] 500 mg PO Q12 13 Days #26 tab Pantoprazole Sodium [Protonix] 40 mg PO DAILY 13 Days #13 ect - Follow Up Plan Condition: STABLE Disposition: HOME/ ROUTINE Instructions: Peptic Ulcers, Gastrointestinal Bleeding, Constipation, Adult (DC ), H. pylori Infection (DC), Generalized Weakness (DC) Additional Instructions: Please follow up with your primary medical doctor, Dr. Dallin Narvaez, within 3- 5 days. Please follow up with Gastroenterology, Dr. Sheldon in 8 weeks for stool antigen testing of H. pylori (the bacteria found in your stomach) and for the peptic ulcer disease. Please follow up with CAMPAIGN SPECIALIST, Dr. Larios, within 3-5 days to discuss plan of care regarding menorrhagia (heavy menstrual bleeding). Please follow up with Hematology/oncology, Dr. Herbert, within 1-2 weeks (for iron deficiency and low blood count). Upon discharge, continue to take the medicines prescribed to you including Aspirin as well as your home medications. If symptoms reoccur, please return to the ED. Referrals: Heber Herbert MD [Medical Doctor] - Ben Larios MD [Staff Provider] - Dontrell Sheldon MD [Staff Provider] - <Brenda Pickens - Last Filed: 04/29/18 14:55> Provider - Provider Date of Admission: 04/26/18 21:45 Attending physician: Brenda Pickens, DO Hospital Course - Lab Results Lab Results: Most Recent Lab Values WBC 9.3 10^3/ul (4.5-11.0) 04/28/18 06:45 RBC 4.90 10^6/uL (3.5-6.1) 04/28/18 06:45 Hgb 10.7 g/dL (12.0-16.0) L 04/28/18 06:45 Hct 34.4 % (36.0-48.0) L 04/28/18 06:45 MCV 70.2 fl (80.0-105.0) L 04/28/18 06:45 MCH 21.8 pg (25.0-35.0) L 04/28/18 06:45 MCHC 31.1 g/dl (31.0-37.0) 04/28/18 06:45 RDW 21.2 % (11.5-14.5) H 04/28/18 06:45 Plt Count 713 10^3/uL (120.0-450.0) H* 04/28/18 06:45 MPV 8.3 fl (7.0-11.0) 04/28/18 06:45 Gran % 57.0 % (50.0-68.0) 04/28/18 06:45 Lymph % (Auto) 35.0 % (22.0-35.0) 04/28/18 06:45 Baca % (Auto) 5.4 % (1.0-6.0) 04/28/18 06:45 Eos % (Auto) 2.2 % (1.5-5.0) 04/28/18 06:45 Baso % (Auto) 0.4 % (0.0-3.0) 04/28/18 06:45 Gran # 5.29 (1.4-6.5) 04/28/18 06:45 Lymph # (Auto) 3.2 (1.2-3.4) 04/28/18 06:45 Baca # (Auto) 0.5 (0.1-0.6) 04/28/18 06:45 Eos # (Auto) 0.2 (0.0-0.7) 04/28/18 06:45 Baso # (Auto) 0.04 K/mm3 (0.0-2.0) 04/28/18 06:45 Retic Count 0.64 % (0.5-1.5) 04/26/18 20:20 PT 12.3 SECONDS (9.4-12.5) 04/26/18 20:20 INR 1.08 04/26/18 20:20 APTT 30.3 Seconds (25.1-36.5) 04/26/18 20:20 Sodium 139 mmol/L (132-148) 04/28/18 06:45 Potassium 3.6 mmol/L (3.6-5.0) 04/28/18 06:45 Chloride 106 mmol/L (98-107) 04/28/18 06:45 Carbon Dioxide 22 mmol/L (21-33) 04/28/18 06:45 Anion Gap 14 (10-20) 04/28/18 06:45 BUN 9 mg/dL (7-21) 04/28/18 06:45 Creatinine 0.5 mg/dl (0.7-1.2) L 04/28/18 06:45 Est GFR ( Amer) > 60 04/28/18 06:45 Est GFR (Non-Af Amer) > 60 04/28/18 06:45 Random Glucose 85 mg/dL (70-110) 04/28/18 06:45 Calcium 8.7 mg/dL (8.4-10.5) 04/28/18 06:45 Iron 14 ug/dL (45-180) L 04/26/18 20:20 TIBC 414 ug/dL (265-497) 04/26/18 20:20 % Saturation 3 % (20-55) L 04/26/18 20:20 Transferrin 327.67 mg/dL (206-381) 04/26/18 20:20 Ferritin 4.2 ng/mL 04/26/18 20:20 Total Bilirubin 0.4 mg/dL (0.2-1.3) 04/28/18 06:45 AST 33 U/L (14-36) 04/28/18 06:45 ALT 26 U/L (7-56) 04/28/18 06:45 Alkaline Phosphatase 79 U/L (38-126) 04/28/18 06:45 Total Protein 6.8 g/dL (5.8-8.3) 04/28/18 06:45 Albumin 3.8 g/dL (3.0-4.8) 04/28/18 06:45 Globulin 3.0 gm/dL 04/28/18 06:45 Albumin/Globulin Ratio 1.3 (1.1-1.8) 04/28/18 06:45 Vitamin B12 336 pg/mL (239-931) 04/26/18 20:20 Folate 7.7 ng/mL 04/26/18 20:20 RBC Folate 805 ng/mL RBC (>280) 04/26/18 20:20 FSH 3rd Generation 4.7 mIU/mL 04/27/18 08:00 Luteinizing Hormone 4.5 mIU/mL 04/27/18 08:00 Urine Color Yellow (YELLOW) 04/27/18 07:00 Urine Appearance Clear (CLEAR) 04/27/18 07:00 Urine pH 7.0 (4.7-8.0) 04/27/18 07:00 Ur Specific [place] 1.010 (1.005-1.035) 04/27/18 07:00 Urine Protein Negative mg/dL (<30 mg/dL) 04/27/18 07:00 Urine Glucose (UA) Negative mg/dL (NEGATIVE) 04/27/18 07:00 Urine Ketones Negative mg/dL (NEGATIVE) 04/27/18 07:00 Urine Blood Negative (NEGATIVE) 04/27/18 07:00 Urine Nitrate Negative (NEGATIVE) 04/27/18 07:00 Urine Bilirubin Negative (NEGATIVE) 04/27/18 07:00 Urine Urobilinogen 0.2 E.U./dL (<1 E.U./dL) 04/27/18 07:00 Ur Leukocyte Esterase Negative [place]ma/uL (NEGATIVE) 04/27/18 07:00 Urine Opiates Screen Negative (NEGATIVE) 04/27/18 07:00 Urine Methadone Screen Negative (NEGATIVE) 04/27/18 07:00 Ur Barbiturates Screen Negative (NEGATIVE) 04/27/18 07:00 Ur Phencyclidine Scrn Negative (NEGATIVE) 04/27/18 07:00 Ur Amphetamines Screen Negative (NEGATIVE) 04/27/18 07:00 U Benzodiazepines Scrn Negative (NEGATIVE) 04/27/18 07:00 U Oth Cocaine Metabols Negative (NEGATIVE) 04/27/18 07:00 U Cannabinoids Screen Positive (NEGATIVE) H 04/27/18 07:00 Blood Type A POSITIVE 04/26/18 20:30 Antibody Screen Negative 04/26/18 20:30 Crossmatch See Detail 04/26/18 20:30 BBK History Checked Patient has bt 04/26/18 20:30 Attending/Attestation - Attestation I have personally seen and examined this patient.: Yes I have fully participated in the care of the patient.: Yes I have reviewed all pertinent clinical information, including history, physical exam and plan: Yes Notes (Text): Patient seen and examined by me with resident at 11:55AM 04/28/18. Case including discharge plan discussed with resident. Agree with above with following additions/corrections. Patient is a 43-year-old female, presented to the emergency room with fatigue, generalized weakness, and near syncopal episodes at home. Patient found to have anemia. Please see H&P for full details. Patient was admitted with microcytic hypochromic anemia secondary to menorrhagia , reactive thrombocytosis, marijuana use, depression/anxiety, vitamin D deficiency, and hypertension. Patient with history of iron deficiency. Iron studies showed iron deficiency. GI was consulted. Hematology/oncology was consulted. Patient was transfused 2 units PRBCs. Hgb on admission was 7.7. Hgb on discharge was 10.7. patient was seen by gastroenterology. Per GI, patient had recent EGD which showed duodenal ulcers and had a colonoscopy last year which was normal. Patient may benefit from outpatient capsule endoscopy. No GI intervention while in the hospital. Patient also with a history of menorrhagia. Case was discussed with concrete swimming pool installer Dr. Larios. Per Dr. Larios, patient follows with him in the office and he will see patient in his office. Pelvic ultrasound per radiologist shows unremarkable pelvis ultrasound. Patient was also seen by hematology/oncology Dr. Herbert. Patient was give on dose of IV iron. Patient to follow up outpatient with Dr. Herbert for repeat blood work and continuation of IV iron. Thrombocytosis likely secondary to iron deficiency anemia per Dr. Herbert. Patient had no acute bleeding in hospital . Patient's results from recent EGD was H. Pylori positive. Patient started on and continued on clarithromycin, amoxicillin, and Protonix. Patient will need stool antigen test with GI outpatient 8 weeks after completing therapy. Patient also with history of CVA and residual right-sided weakness and expressive aphasia. ASA restarted as discussed with GI. Patient continued on home Cozaar for blood pressure. Patient continued on xanax and prozac for depression and anxiety. Patient uses marijuana daily. Patient counseled on cessation. Patient to continue home vitamin D for vitamin D deficiency. She was feeling better. H&H remained stable after blood transfusion. Patient was cleared for discharge by all consultants. Patient was discharged home. On day of discharge, patient stated she was feeling ok. Patient complained of tooth pain. Patient states she is having her teeth extracted in one week. Patient is taking antibiotics and pain medications at home. Patient was advised to follow up with her dentist for this. Patient able to eat her food and was tolerating diet. Denies any chest pain or shortness of breath. No fevers or chills. No nausea, vomiting, or abdominal pain. No headaches or dizziness. No dysuria. No lightheadedness. No change in vision. Physical exam: Gen: Patient is awake and alert lying in bed in no acute distress HEENT: Normocephalic atraumatic. extraocular muscles intact. Pupils equal and reactive. Oropharynx is pink and moist. Positive upper back teeth noted to have cavities. No pharyngeal erythema or exudate appreciated. Neck is supple. Pulmonary: Normal respiratory effort. No rhonchi, rales, or wheezing appreciated Cardiovascular: Regular rhythm. Normal S1 and S2. No murmurs or gallops appreciated. Gastrointestinal: Soft, nontender, nondistended. Positive bowel sounds all 4 quadrants. No guarding. Musculoskeletal: Moves all extremities. No calf tenderness. No edema appreciated. Vascular: 2+ peripheral pulses upper and lower extremities Central nervous system: AAO 3. Positive right upper and lower extremity weakness when compared to left. Positive expressive aphasia. Secondary to a previous stroke and is chronic. Dermatologic: Skin warm and dry Please see chart for full details. Follow up instructions. Patient to follow-up with primary care doctor within 3- 5 days. Patient to follow-up with gastroenterology, Dr. Sheldon, in 8 weeks for stool antigen testing of H. pylori for peptic ulcer disease. Patient to follow up with ultrasound technologist, Dr. Larios, within 3-5 days to discuss plan of care for menorrhagia. Patient to follow up with hem/onc Dr. Herbert within 1-2 weeks. All instructions explained to patient in detail. Patient both understands and agrees to all instructions. Time spent in discharging the patient including chart review, medication reconciliation, discussion with the patient, general medical practitioner, consultants, and nursing staff was approximately 40 minutes.
[2018-04-28 14:53] VITALS: BP 135/85; PULSE 65; RESP 18; TEMP 97.7; O2SAT 95
--- NOTE | 2018-04-28 18:05 | CON ---
Copied To: Heber Herbert MD Attending MD: Heber Herbert MD DATE: 04/28/2018 HEMATOLOGY CONSULTATION HISTORY OF PRESENT ILLNESS: This is a 43-year-old woman with severe anemia. She has a history that she recently had an upper endoscopy, which showed ulcers and positive H. pylori. She also has a history of CVA. She comes in now with severe weakness and she is found to have hemoglobin 7.7. PHYSICAL EXAMINATION: SKIN: No petechiae. No bruises. HEENT: Anicteric. NODES: Nonpalpable in axillary, cervical, supraclavicular or inguinal regions. LUNGS: Clear at present. No vertebral tenderness. Patient is able to lie flat in bed. HEART: S1 and S2. ABDOMEN: Shows no liver, no spleen, no tenderness. No rebound. No ascites EXTREMITIES: No edema. LABORATORY DATA: The iron level was 3% saturation, ferritin 4. Also, her platelet count was about 684, 704. ASSESSMENT AND PLAN: 1. Iron deficiency. The ultrasound of her pelvis did not show any fibroids seems to be mostly from the GI. She is status post 2 units of packed cells and hemoglobin is up to 10.4. I am going to give her 200 mg Venofer IV today. I gave her my appointment for her to see me and the office in [place]. I gave my name, my address and she will see me within a week or two and I will repeat the blood counts and then arrange for her to get IV iron. The high platelet count is most likely here due to the iron deficiency that this is one of the main reason for thrombocytosis. We will not do JAK2 mutation analysis at this point, but treat for the IV iron see how the platelets drop. So, she should be seeing me in my office within the next week or two. Heber Herbert MD
== END 2018-04-28 15:51 | disposition home or self-care (01) | DRG 395 ==
LOC: ED 19:07 → ERH 21:45 → 2RNO 04-27 00:32 → 5RNO 04-27 20:16
PROVIDERS: ADMIT Internal Medicine; ATTEND Hospitalist
PROC: 30233N1 Transfusion of Nonautologous Red Blood Cells into Peripheral Vein, Percutaneous Approach (ICD-10-PCS; principal; 2018-04-26)
DX: D50.9 Iron deficiency anemia, unspecified (principal); N92.0 Excessive and frequent menstruation with regular cycle; K27.9 Peptic ulcer, site unspecified, unspecified as acute or chronic, without hemorrhage or perforation; K26.9 Duodenal ulcer, unspecified as acute or chronic, without hemorrhage or perforation; I10 Essential (primary) hypertension; F31.9 Bipolar disorder, unspecified; E55.9 Vitamin D deficiency, unspecified; E78.5 Hyperlipidemia, unspecified; F41.9 Anxiety disorder, unspecified; F12.10 Cannabis abuse, uncomplicated; E78.00 Pure hypercholesterolemia, unspecified; I69.351 Hemiplegia and hemiparesis following cerebral infarction affecting right dominant side; Z79.82 Long term (current) use of aspirin; Z93.1 Gastrostomy status; Z87.891 Personal history of nicotine dependence

== ENCOUNTER 2018-05-20 13:54 | Emergency (ER) | payer OTHER ==
[2018-05-20 14:08] VITALS: BMI 20.4
--- NOTE | 2018-05-20 14:24 | ED PDOC ---
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 Patient's partner states patient has been expressing unsteady gait secondary to dizziness. As per partner, a home health aide comes everyday to take care of patient. Patient denies any fever, chills, nausea, vomiting, diarrhea, abdominal pain, chest pain, shortness of breath, cough, headache, neck pain, back pain, or any other complaints. Time/Duration: 24 hours Symptom Onset: Gradual Symptom Course: Unchanged Activities at Onset: Light Context: Home Past Medical History - Provider Review Nursing Documentation Reviewed: Yes - Past History Past History: Non-Contributing - Infectious Disease Hx of Infectious Diseases: None - Tetanus Immunization Tetanus Immunization: Unknown - Cardiac Hx Hypertension: Yes - Pulmonary Hx Respiratory Disorders: No - Neurological HX Cerebrovascular Accident: Yes (right sided weakness) - HEENT Hx HEENT Disorder: No - Renal Hx Renal Disorder: No - Endocrine/Metabolic Hx Endocrine Disorders: No - Hematological/Oncological Hx Blood Transfusions: Yes Hx Blood Transfusion Reaction: No - Integumentary Hx Dermatological Disorder: No - Musculoskeletal/Rheumatological Hx Arthritis: Yes - Gastrointestinal Hx Gastrointestinal Disorders: Yes (H/O GT PLACEMENT) Hx Gall Bladder Disease: Yes (CHOLECYSTECTOMY) Other/Comment: GI BLEED - Genitourinary/Gynecological Hx Genitourinary Disorders: No - Psychiatric Hx Psychophysiologic Disorder: Yes Hx Anxiety: Yes Hx Bipolar Disorder: Yes Hx Depression: Yes Hx Substance Use: No - Surgical History Hx Cholecystectomy: Yes - Anesthesia Hx Anesthesia: Yes Hx Anesthesia Reactions: No Hx Malignant Hyperthermia: No - Suicidal Assessment Feels Threatened In Home Enviroment: No Family/Social History - Physician Review Nursing Documentation Reviewed: Yes Family/Social History: No Known Family HX Smoking Status: Light Smoker < 10 Cigarettes Daily Hx Alcohol Use: Yes (ocasional) Hx Substance Use: No Hx Substance Use Treatment: No Allergies/Home Meds Allergies/Adverse Reactions: Allergies No Known Allergies Allergy (Verified 11/07/17 13:48) Home Medications: Home Meds Medication Instructions Recorded Confirmed Alprazolam 0.25 mg PO BID 04/10/17 05/20/18 Losartan [Cozaar] 100 mg PO DAILY 03/17/18 05/20/18 Fluoxetine HCl 20 mg PO DAILY 03/20/18 05/20/18 Memantine [Namenda] 10 mg PO DAILY 03/20/18 05/20/18 Amlodipine Besylate 5 mg PO DAILY 04/27/18 05/20/18 Aspirin [Aspirin EC] 325 mg PO DAILY 04/27/18 05/20/18 Docusate Sodium [Stool Softener] 100 mg PO DAILY 04/27/18 05/20/18 Vitamin B-12 100 mcg PO DAILY 04/27/18 05/20/18 Review of Systems - Physician Review All systems were reviewed & negative as marked: Yes - Review of Systems Constitutional: absent: Fevers Respiratory: absent: SOB, Cough Cardiovascular: absent: Chest Pain, PEREZ Gastrointestinal: absent: Abdominal Pain, Diarrhea, Nausea, Vomiting Musculoskeletal: absent: Back Pain, Neck Pain Neurological: Dizziness. absent: Headache Physical Exam Vital Signs Reviewed: Yes Vital Signs Temp Pulse Resp BP Pulse Ox 05/20/18 14:08 98 F 67 18 143/73 100 Temperature: Afebrile Blood Pressure: Normal Pulse: Regular Respiratory Rate: Normal Appearance: Positive for: Well-Appearing, Non-Toxic, Comfortable Pain Distress: None Mental Status: Positive for: Alert and Oriented X 3 - Systems Exam Head: Present: Atraumatic, Normocephalic Pupils: Present: PERRL Extroacular Muscles: Present: EOMI Conjunctiva: Present: Normal Mouth: Present: Moist Mucous Membranes Neck: Present: Normal Range of Motion Respiratory/Chest: Present: Clear to Auscultation, Good Air Exchange. No: Respiratory Distress, Accessory Muscle Use Cardiovascular: Present: Regular Rate and Rhythm, Normal S1, S2. No: Murmurs Abdomen: No: Tenderness, Distention, Peritoneal Signs Back: Present: Normal Inspection Upper Extremity: Present: Other (right sided residual weakness). No: Cyanosis, Edema Lower Extremity: Present: Other (Right sided residual weakness). No: Edema Neurological: Present: GCS=15, CN II-XII Intact, Other (Speech Aphasia) Skin: Present: Warm, Dry, Normal Color. No: Rashes Psychiatric: Present: Alert, Oriented x 3, Normal Insight, Normal Concentration Medical Decision Making ED Course and Treatment: 05/20/18 14:28 Impression: 43 year old female presents to the Emergency Department complaining of lightheadedness. Plan: -- VBG -- CT of Head -- Labs -- Chest X-ray -- Blood Culture -- Urine Culture -- Urinalysis -- Reassess and disposition Prior Visits: Notes and results from previous visits were reviewed. Progress Notes: 05/20/18 14:30 EKG: Ordered, reviewed, and independently interpreted the EKG. Rate : 69 BPM Rhythm : NSR Interpretation : No ST-segment elevations or depressions, no T-wave inversions, normal intervals. - Lab Interpretations Lab Results: 05/20/18 14:20 05/20/18 14:20 Lab Results 05/20/18 16:00: Urine Color Yellow, Urine Appearance Clear, Urine pH 8.0, Ur Specific [place] 1.020, Urine Protein Trace H, Urine Glucose (UA) Negative, Urine Ketones Negative, Urine Blood Trace-intact H, Urine Nitrate Negative, Urine Bilirubin Negative, Urine Urobilinogen 0.2, Ur Leukocyte Esterase Negative , Urine RBC 0 - 2, Urine WBC 0 - 2, Ur Epithelial Cells 1 - 3, Urine Bacteria Trace 05/20/18 15:17: pO2 54, VBG pH 7.41, VBG pCO2 45.0, VBG HCO3 28.5 H, VBG Total CO2 29.9 H, VBG O2 Sat (Calc) 92.2 H, VBG Base Excess 3.2 H, VBG Potassium 3.1 L , Glucose 97, Lactate 0.7, FiO2 21.0, Sodium 138.0, Chloride 106.0, Venous Blood Potassium 3.1 L 05/20/18 14:40: Blood Type A POSITIVE, Antibody Screen Negative, BBK History Checked Patient has bt 05/20/18 14:20: Beta HCG, Quant < 2.39 05/20/18 14:20: Sodium 141, Potassium 3.4 L, Chloride 104, Carbon Dioxide 28, Anion Gap 13, BUN 10, Creatinine 0.5 L, Est GFR ( Amer) > 60, Est GFR ( Non-Af Amer) > 60, Random Glucose 100, Calcium 9.1, Phosphorus 3.1, Magnesium 2.0, Total Bilirubin 0.3, AST 31, ALT 21, Alkaline Phosphatase 92, Total Protein 7.4, Albumin 4.2, Globulin 3.2, Albumin/Globulin Ratio 1.3 05/20/18 14:20: WBC 5.5 D, RBC 5.41, Hgb 12.7 D, Hct 40.4, MCV 74.7 L D, MCH 23.5 L, MCHC 31.4, RDW 25.3 H, Plt Count 421, MPV 8.6, Gran % 64.9, Lymph % ( Auto) 28.3, [place] % (Auto) 5.3, Eos % (Auto) 1.1 L, Baso % (Auto) 0.4, Gran # 3.56, Lymph # (Auto) 1.6, [place] # (Auto) 0.3, Eos # (Auto) 0.1, Baso # (Auto) 0.02 - RAD Interpretation Radiology Orders: 05/20/18 14:15 HEAD W/O CONTRAST [CT] Stat CHEST PORTABLE [RAD] Stat - Scribe Statement The provider has reviewed the documentation as recorded by the Scribe Dorothy Rasmussen. All medical record entries made by the Scribe were at my direction and personally dictated by me. I have reviewed the chart and agree that the record accurately reflects my personal performance of the history, physical exam, medical decision making, and the department course for this patient. I have also personally directed, reviewed, and agree with the discharge instructions and disposition. Disposition/Present on Arrival - Present on Arrival Any Indicators Present on Arrival: No History of DVT/PE: No History of Uncontrolled Diabetes: No Urinary Catheter: No History Surgical Site Infection Following: None - Disposition Have Diagnosis and Disposition been Completed?: Yes Diagnosis: Generalized weakness Disposition: HOME/ ROUTINE Disposition Time: 17:55 Patient Plan: Discharge Condition: GOOD Discharge Instructions (ExitCare): Weakness (ED) Additional Instructions: Hyun- Your H/H is good, and you do not need a transfusion at this time. Follow up with your doctors, return to us if problems. Hans- Dr. Rogers Noriega
[2018-05-20 15:14] LABS: BASO # 0.02 K/mm3 (0.0-2.0); BASO % 0.4 % (0.0-3.0); EOS # 0.1 (0.0-0.7); EOS % 1.1 % (1.5-5.0); GRAN # 3.56 (1.4-6.5); GRAN % 64.9 % (50.0-68.0); HEMOGLOBIN 12.7 g/dL (12.0-16.0); LYMPH # 1.6 (1.2-3.4); LYMPH % 28.3 % (22.0-35.0); MEAN CELL VOLUME 74.7 fl (80.0-105.0); MEAN CORPUSCULAR HEMOGLOBIN 23.5 pg (25.0-35.0); MEAN CORPUSCULAR HGB CONC 31.4 g/dl (31.0-37.0); MEAN PLATELET VOLUME 8.6 fl (7.0-11.0); MONO # 0.3 (0.1-0.6); MONO % 5.3 % (1.0-6.0); RBC 5.41 10^6/uL (3.5-6.1); RED CELL DISTRIBUTION WIDTH 25.3 % (11.5-14.5); WHITE BLOOD COUNT 5.5 10^3/ul (4.5-11.0)
[2018-05-20 15:24] LABS: VENOUS BLOOD GAS BASE EXCESS 3.2 mmol/L (0.0-2.0); VENOUS BLOOD GAS PO2 54 mm/Hg (30-55); VENOUS BLOOD PH 7.41 (7.32-7.43)
[2018-05-20 15:45] LABS: ALB/GLOB RATIO 1.3 (1.1-1.8); ALBUMIN 4.2 g/dL (3.0-4.8); ALT/SGPT 21 U/L (7-56); AST/SGOT 31 U/L (14-36); BLOOD UREA NITROGEN 10 mg/dL (7-21); CALCIUM 9.1 mg/dL (8.4-10.5); GFR NON-AFRICAN AMERICAN > 60
[2018-05-20 16:11] LABS: URINE BILIRUBIN NEGATIVE (NEGATIVE); URINE BLOOD TRACE-INTACT (NEGATIVE); URINE GLUCOSE (UA) NEGATIVE (NEGATIVE); URINE LEUKOCYTE ESTERASE NEGATIVE Leu/uL (NEGATIVE); URINE PROTEIN TRACE mg/dL (<30 mg/dL); URINE UROBILINOGEN 0.2 E.U./dL (<1 E.U./dL)
[2018-05-20 16:13] LABS: URINE APPEARANCE CLEAR (CLEAR); URINE COLOR YELLOW (YELLOW)
[2018-05-20 16:19] LABS: URINE BACTERIA TRACE (NEG); URINE RBC 0 - 2 /hpf (0-2); URINE WBC 0 - 2 /hpf (0-6)
[2018-05-20 18:09] VITALS: BP 125/83; PULSE 78; RESP 16; TEMP 98.2; O2SAT 100
--- NOTE | 2018-05-20 19:33 | CARD ---
APPROVED REPORT Date of service: 05/20/2018 EKG Measurement Heart [id number] <Conclusion> Normal sinus rhythm Voltage criteria for left ventricular hypertrophy Abnormal ECG
== END 2018-05-20 18:09 | disposition home or self-care (01) ==
LOC: ED 13:54
DX: R53.1 Weakness (principal); F17.210 Nicotine dependence, cigarettes, uncomplicated